=== PATIENT | female | born 1965 | race Caucasian/White ===

== ENCOUNTER 2020-02-26 12:18 | Outpatient (REF) | payer OTHER, SELFPAY ==
[2020-02-26 13:12] LABS: Hematocrit 37.4 % (37-47); Hemoglobin 12.4 g/dl (12.0-16.0); Mean Corpuscular HGB Conc 33.2 g/dl (31.0-35.0); Mean Corpuscular Hemoglobin 28.2 pg (27.0-33.0); Mean Corpuscular Volume 85.2 fL (80-98); Mean Platelet Volume 11.7 fL (9.4-12.3); Platelet Count 218 X10*3/uL (160-400); Red Blood Count 4.39 X10*6/uL (4.20-5.50); Red Cell Distribution Width 12.9 % (11.0-16.0); White Blood Count 4.6 X10*3/uL (4.8-10.8)
[2020-02-26 13:41] LABS: Alanine Aminotransferase 31 U/L (0-31); Albumin Level 4.5 g/dL (3.5-5.0); Alkaline Phosphatase 51 U/L (39-117); Anion Gap 15 (12-20); Aspartate Amino Transferase 25 U/L (5-31); Bilirubin Total 0.9 mg/dL (0.0-1.0); Blood Urea Nitrogen 17 mg/dL (9-16); Calcium 9.2 mg/dL (8.4-10.2); Carbon Dioxide 27 mmol/L (22-29); Chloride 104 mmol/L (96-108); Cholesterol 204 mg/dL; Estimated Glomerular Filt Rate > 60; Glucose Fasting 121 mg/dL (60-99); HDL Cholesterol 36 mg/dL; LDL Cholesterol Calculated 126 mg/dl; Potassium 3.9 mmol/l (3.3-5.1); Sodium 142 mmol/L (135-145); Total Protein 7.1 g/dL (6.5-8.0); Triglycerides 213 mg/dL
[2020-02-26 14:03] LABS: TSH reflex Free T4 0.77 mIU/mL (0.32-4.0)
[2020-02-26 14:41] LABS: Glucose Urine UA NEG (NEG); Leukocyte Esterase Urine 1+ (NEG); Nitrite Urine NEG (NEG); PH 5.5 (5.0-8.0); Specific Gravity - Urine >= 1.030 (1.005-1.025); Urine Blood 2+ (NEG); Urine Ketones NEG (NEG); Urine Protein NEG (NEG-TRACE)
[2020-02-26 14:42] LABS: Appearance Urine HAZY; Color Urine YELLOW
[2020-02-26 14:47] LABS: Bacteria Urine TRACE /LPF; Squamous Epithelial Cell Urine 3+ /LPF
[2020-02-26 14:48] LABS: Mucus Urine TRACE /LPF
== END 2020-02-26 12:19 | disposition home or self-care (01) ==
LOC: HO.LAB 12:18
PROVIDERS: PCP Internal Medicine; Visit Provider Internal Medicine
DX: Z00.00 Encounter for general adult medical examination without abnormal findings (principal)
CPT/HCPCS: 36415; 80053; 80061; 81001; 84443; 85027

== ENCOUNTER 2020-03-30 09:21 | Outpatient (REF) | payer OTHER, SELFPAY ==
[2020-03-30 09:52] LABS: Estimated Average Glucose 134 mg/dL; Hemoglobin A1c % 6.3 %
[2020-03-30 09:56] LABS: Glucose Urine UA NEG (NEG); Leukocyte Esterase Urine 2+ (NEG); Nitrite Urine NEG (NEG); Specific Gravity - Urine 1.025 (1.005-1.025); Urine Blood NEG (NEG); Urine Ketones NEG (NEG); Urine Protein NEG (NEG-TRACE)
[2020-03-30 09:58] LABS: Appearance Urine HAZY; Color Urine YELLOW
[2020-03-30 10:03] LABS: Bacteria Urine TRACE /LPF; RBC Urine 0 /HPF (0); Renal Epithelial Cells Urine 1+ /LPF; Squamous Epithelial Cell Urine 1+ /LPF
[2020-03-30 10:22] LABS: Anion Gap 13 (12-20); Blood Urea Nitrogen 16 mg/dL (9-16); Calcium 8.9 mg/dL (8.4-10.2); Carbon Dioxide 27 mmol/L (22-29); Chloride 106 mmol/L (96-108); Estimated Glomerular Filt Rate > 60; Glucose Random 164 mg/dL (60-115); Sodium 142 mmol/L (135-145)
== END 2020-03-30 09:22 | disposition home or self-care (01) ==
LOC: HO.LAB 09:21
PROVIDERS: PCP Internal Medicine; Visit Provider Internal Medicine
DX: Z00.00 Encounter for general adult medical examination without abnormal findings (principal); R73.9 Hyperglycemia, unspecified
CPT/HCPCS: 36415; 80048; 81001; 83036

== ENCOUNTER 2020-09-17 14:27 | Outpatient (REF) | payer OTHER, SELFPAY ==
--- NOTE | ~2020-09-17 | XR_ITS ---
EXAMINATION: XR CHEST CLINICAL INFORMATION: Cough. COMPARISON: Chest 01/28/2019 TECHNIQUE: 2 views of the chest were obtained. FINDINGS: The lungs are well-expanded and clear of acute process. The heart size and pulmonary vascularity is normal. There is moderate spondylosis dorsal spine. No lytic process. XR/XR chest 2V IMPRESSION: Unremarkable chest exam.
== END 2020-09-17 14:28 | disposition home or self-care (01) ==
LOC: HO.HMGCX 14:27
PROVIDERS: PCP Internal Medicine; Visit Provider Internal Medicine
DX: R05 Cough (principal)
CPT/HCPCS: 71046

== ENCOUNTER 2021-05-26 08:17 | Outpatient (REF) | payer OTHER, SELFPAY ==
[2021-05-26 12:07] LABS: Appearance Urine CLEAR; Color Urine STRAW; Glucose Urine UA NEG (NEG); Leukocyte Esterase Urine 3+ (NEG); Nitrite Urine NEG (NEG); Urine Blood NEG (NEG); Urine Ketones NEG (NEG); Urine Protein NEG (NEG-TRACE)
[2021-05-26 12:10] LABS: Hematocrit 40.2 % (37.0-47.0); Hemoglobin 13.2 g/dl (12.0-16.0); Mean Corpuscular HGB Conc 32.8 g/dl (31.0-35.0); Mean Corpuscular Hemoglobin 28.1 pg (27.0-33.0); Mean Corpuscular Volume 85.5 fL (80.0-98.0); Platelet Count 226 X10*3/uL (160-400); Red Cell Distribution Width 13.2 % (11.0-16.0); White Blood Count 5.3 X10*3/uL (4.8-10.8)
[2021-05-26 12:50] LABS: TSH reflex Free T4 1.99 uIU/mL (0.32-4.0); Vitamin D 25-OH Total 13.9 ng/mL (>30)
[2021-05-26 12:56] LABS: Estimated Average Glucose 131 mg/dL; Hemoglobin A1c % 6.2 %
[2021-05-26 12:57] LABS: Alanine Aminotransferase 23 U/L (0-31); Albumin Level 4.6 g/dL (3.5-5.0); Alkaline Phosphatase 56 U/L (39-117); Anion Gap 14 (12-20); Aspartate Amino Transferase 19 U/L (5-31); Bilirubin Total 0.6 mg/dL (0.0-1.0); Blood Urea Nitrogen 16 mg/dL (9-16); Calcium 9.9 mg/dL (8.4-10.2); Carbon Dioxide 28 mmol/L (22-29); Chloride 105 mmol/L (96-108); Cholesterol 266 mg/dL; Estimated Glomerular Filt Rate > 60; Glucose Fasting 141 mg/dL (60-99); HDL Cholesterol 43 mg/dL; LDL Cholesterol Calculated 195 mg/dl; Potassium 4.5 mmol/L (3.3-5.1); Sodium 142 mmol/L (135-145); Total Protein 7.5 g/dL (6.5-8.0); Triglycerides 144 mg/dL
[2021-05-26 13:06] LABS: RBC Urine 0-2 /HPF (0); Renal Epithelial Cells Urine 3+ /LPF; Squamous Epithelial Cell Urine 1+ /LPF
== END 2021-05-26 08:18 | disposition home or self-care (01) ==
LOC: HO.HMGCLDS 08:17
PROVIDERS: Visit Provider Internal Medicine
DX: Z00.00 Encounter for general adult medical examination without abnormal findings (principal); R73.9 Hyperglycemia, unspecified; K63.5 Polyp of colon
CPT/HCPCS: 36415; 80053; 80061; 81001; 82306; 83036; 84443; 85027

== ENCOUNTER → 2021-07-25 12:04 | Outpatient (BNVA) | payer OTHER, SELFPAY | PROVIDERS: PCP Internal Medicine; Visit Provider Internal Medicine Gastroenterology | DX: Z13.89 Encounter for screening for other disorder (principal) ==

== ENCOUNTER → 2021-08-20 10:57 | Outpatient (BNVA) | payer OTHER, SELFPAY | PROVIDERS: PCP Internal Medicine; Visit Provider Physician Assistant | DX: S76.311A Strain of muscle, fascia and tendon of the posterior muscle group at thigh level, right thigh, initial encounter (principal); X58.XXXA Exposure to other specified factors, initial encounter | CPT/HCPCS: 99204 ==

== ENCOUNTER → 2021-08-27 10:46 | Outpatient (BNVA) | payer OTHER, SELFPAY | PROVIDERS: PCP Internal Medicine; Visit Provider Physician Assistant | DX: S76.311A Strain of muscle, fascia and tendon of the posterior muscle group at thigh level, right thigh, initial encounter (principal); X58.XXXA Exposure to other specified factors, initial encounter | CPT/HCPCS: 99213 ==

== ENCOUNTER 2021-12-22 11:59 | Outpatient (REF) | payer OTHER, SELFPAY ==
[2021-12-22 14:17] LABS: Cholesterol 222 mg/dL; HDL Cholesterol 27 mg/dL; LDL Cholesterol Calculated 159 mg/dl; Triglycerides 183 mg/dL
== END 2021-12-22 12:00 | disposition home or self-care (01) ==
LOC: HO.HMGCLDS 11:59
PROVIDERS: PCP Internal Medicine; Visit Provider Internal Medicine
DX: E55.9 Vitamin D deficiency, unspecified (principal); E78.5 Hyperlipidemia, unspecified
CPT/HCPCS: 36415; 80061; 82306

== ENCOUNTER 2022-03-26 11:54 | Outpatient (REF) | payer OTHER, SELFPAY ==
--- NOTE | ~2022-03-26 | XR_ITS ---
EXAMINATION: XR LUMBAR SPINE. XR HIP, RIGHT. CLINICAL INFORMATION: Right leg pain COMPARISON: CT 10/11/2018 TECHNIQUE: 3 views of the lumbar spine. AP and frog-lateral views of the right hip. FINDINGS: Lumbar spine: Normal alignment and lumbar lordosis with mild multilevel degenerative disc disease. Moderate to severe facet arthrosis at L4-L5 and L5-S1. No fracture. Prominent atherosclerotic calcifications of the abdominal aorta. Right hip: No acute fracture or malalignment. Moderate osteoarthritis with prominent osteophytes along the acetabular rim. No acute osseous abnormality. XR/XR lumbar spine 2-3V IMPRESSION: LUMBAR SPINE: Mild multilevel degenerative disc disease with moderate to severe facet arthrosis at L4-L5 and L5-S1. RIGHT HIP: Moderate osteoarthritis.
--- NOTE | ~2022-03-26 | XR_ITS ---
EXAMINATION: XR LUMBAR SPINE. XR HIP, RIGHT. CLINICAL INFORMATION: Right leg pain COMPARISON: CT 10/11/2018 TECHNIQUE: 3 views of the lumbar spine. AP and frog-lateral views of the right hip. FINDINGS: Lumbar spine: Normal alignment and lumbar lordosis with mild multilevel degenerative disc disease. Moderate to severe facet arthrosis at L4-L5 and L5-S1. No fracture. Prominent atherosclerotic calcifications of the abdominal aorta. Right hip: No acute fracture or malalignment. Moderate osteoarthritis with prominent osteophytes along the acetabular rim. No acute osseous abnormality. XR/XR hip RT min 2V IMPRESSION: LUMBAR SPINE: Mild multilevel degenerative disc disease with moderate to severe facet arthrosis at L4-L5 and L5-S1. RIGHT HIP: Moderate osteoarthritis.
== END 2022-03-26 11:55 | disposition home or self-care (01) ==
LOC: HO.HMGCX 11:54
PROVIDERS: PCP Internal Medicine; Visit Provider Internal Medicine
DX: M54.16 Radiculopathy, lumbar region (principal); M25.551 Pain in right hip; M79.604 Pain in right leg; R10.31 Right lower quadrant pain
CPT/HCPCS: 72100; 73502

== ENCOUNTER 2022-05-27 07:53 | Day surgery (SDC) | payer OTHER, SELFPAY ==
[2022-05-21 11:03] VITALS: BMI 35.6
--- NOTE | 2022-05-27 07:53 | P.HPSUR_ITS ---
Pre-Procedural Eval Section A Date of Service: 05/27/22 Section B Chief Complaint: Personal history of colonic polyps Relevant Family History (Specify if Yes): No Relevant Social History: None Present Medications: see Short Stay Collaborative assessment Medical History: Significant History (Abnormal colonoscopy Annual physical exam Cough Edema GERD (gastroesophageal reflux disease) Hx of subarachnoid hemorrhage Hyperglycemia Hyperlipidemia Hypertension Mammogram normal Normal Pap smear Polyp of colon Vitamin D deficiency) History of Previous Operations: Relevant previous surgery/procedure and date(s) (History of section Hx of cholecystectomy) Allergies: Allergies Allergy/AdvReac Type Severity Reaction Status Date / Time No Known Allergies Allergy Unverified 03/26/22 11:43 [No Known Allergies*] Review of Systems Sugical H&P ROS: Negative: Constitution, Cardiovascular, Respiratory, Neurological, Psychiatric, Hem-Onc, Allergic/Immunologic, Gastrointestinal, Genitourinary, Musculoskeletal, Integumentary, Endocrine and Eyes/Ears/Nose /Throat Exam Surgical H&P Exam: Normal: HEENT, Normal: Heart, Normal: Lungs, Normal: Extremities, Normal: Abdomen, Normal: Skin and Normal: Neurological Plan Diagnosis/Plan: Unchanged I have reviewed the history and physical and performed a pertinent physical examination on my patient. No changes have occurred unless specified. Time Spent With Patient Time: Total time managing care of this patient today ____ minutes.
[2022-05-27 08:50] VITALS: BP 164/100; PULSE 76; RESP 18; TEMP 36.7; O2SAT 98; BMI 35.4
--- NOTE | 2022-05-27 08:57 | P.CONAN_ITS ---
[facility] Active Problems Active Problems: All Active Problems (Updated 05/21/22 @ 11:03 by Theodora Murillo RN) Urinary tract bacterial infections (Acute) Upper respiratory tract infection (Acute) Pain in right leg (Acute) Lumbar radiculitis (Acute) Right groin pain (Acute) Pain in right hip (Acute) Vitamin D deficiency (Acute) Hyperlipidemia (Acute) Polyp of colon (Acute) Cough (Acute) Edema (Acute) Hyperglycemia (Acute) Abnormal colonoscopy (Acute) Annual physical exam (Acute) Normal Pap smear (Acute) Mammogram normal (Acute) Past Medical History Medical History (Updated 05/21/22 @ 11:03 by Theodora Murillo RN) Abnormal colonoscopy Annual physical exam Cough Edema GERD (gastroesophageal reflux disease) Hx of subarachnoid hemorrhage Hyperglycemia Hyperlipidemia Hypertension Mammogram normal Normal Pap smear Polyp of colon Vitamin D deficiency Family History Family History Father HTN (hypertension) CVD (cardiovascular disease) AAA (abdominal aortic aneurysm) Unknown family medical history Mother Unknown family medical history 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 Brother No problems noted. Sister No problems noted. Son No problems noted. Daughter No problems noted. 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 If so, by whom?: No Are you DNR?: No Advance Directives: No Advance Directives Information Provided: Yes (as above noted-will bring copies DOS) Advance Directives on File: No Recently lost weight without trying: No Eating poorly because of decreased appetite: No Nutrition Risks: No Nutritional Risk Patient : No FDLMP: N/A Poor oral hygiene: No Current occupational status: employed Cognitive needs: No Hearing needs: No Vision needs: No Meds Allergies Allergy/AdvReac Type Severity Reaction Status Date / Time No Known Allergies Allergy Unverified 03/26/22 11:43 [No Known Allergies*] Home Medications Medication Instructions Recorded Confirmed Last Taken Type atorvastatin 10 mg tablet 10 mg PO QAM 05/21/22 05/21/22 Unknown History furosemide 20 mg tablet 20 mg PO QAM 05/21/22 05/21/22 Unknown History omeprazole 20 mg capsule,delayed 20 mg PO QAM 05/21/22 05/21/22 Unknown History release propranolol 20 mg tablet 20 mg PO QAM 05/21/22 05/21/22 Unknown History Exam Exam Date and Time: May 27, 2022 0857 Height,Weight and Vital Signs: Height 5 ft 3 in Weight 90.718 kg Last Vital Signs Temp 98.0 F 05/27/22 08:50 Pulse 76 05/27/22 08:50 Resp 18 05/27/22 08:50 BP 164/100 H 05/27/22 08:50 Pulse Ox 98 05/27/22 08:50 O2 Del Method Room Air 05/27/22 08:50 Airway Mallampati Class: II TM Dist: >3cm Neck ROM: Full Heart: rrr Lungs: cta Assessment and Plan Assessment Anesthesia Assessment: Anesthesia Plan Discussed and Chart Reviewed Final Anesthetic Review Family History of Problems with Anesthesia: No History of Problems with Anesthesia: No NPO: Yes ASA Class: II Final Preanesthetic Review: No Changes in Pt Med Stat, Meds/Allgs Chart Reviewed and Consent Obtained/Reviewed Patient Risk: Intermediate Procedure Risk: Intermediate Anesthetic Plan Anesthetic Plan: MAC: Disposition: Standard PACU
[2022-05-27] MEDS: Lactated Ringers 1,000 ML 50 ML IVCONT (09:17)
--- NOTE | 2022-05-27 09:25 | W.PM.OPN ---
Operative Note Operative Note Date of Service: 05/27/22 Narrative: Operative Information Procedure Description: Colonoscopy Indication: hx of colon polyps Anesthesia: MAC COLONOSCOPY Instrument: Olympus variable stiffness pediatric scope 190L Colonoscopy Monitoring: Vital signs and clinical assessment, continuous EKG monitoring, Pulse oximetry, Carbon Dioxide monitoring and blood pressure monitoring were done throughout the procedure. Colon withdrawal time was 18 minutes. Procedure: The patient was placed in the left lateral decubitis position and pre-procedure medications were administered. After a digital rectal examination of the ano-rectum, the video colonoscope was inserted into the rectum and advanced through the colon to the cecum/TI. The colonoscope was slowly withdrawn in a retrograde panoramic fashion and the colon mucosa was carefully examined including a retroflexed view of the rectum. Findings and interventions are described below. Procedure Difficulty: easy Findings: Terminal Ileum-normal, adjacent to the ileocecal opening was a bulbous swelling, it was difficult to say from gross appearance whether this was a partially prolapsed TI or a polyp so biopsies were taken Cecum:normal Ascending Colon: 7-8 mm sessile polyp removed with cold snare Transverse Colon -normal Descending Colon: 5-6 mm sessile polyp removed with cold forceps Sigmoid Colon: moderate severe diverticulosis, 4-6 mm sessile polyp removed with cold forceps Rectum: Retroflexion with medium sized internal hemorrhoids, grade I Anorectum - normal Colon preparation: [place] Bowel Preparation Scale Right colon; 2 Transverse colon: 2 Left colon; 2 (0 = Unprepared colon segment with mucosa not seen due to solid stool that cannot be cleared. 1 = Portion of mucosa of the colon segment seen, but other areas of the colon segment not well seen due to staining, residual stool and/or opaque liquid. 2 = Minor amount of residual staining, small fragments of stool and/or opaque liquid, but mucosa of colon segment seen well. 3 = Entire mucosa of colon segment seen well with no residual staining, small fragments of stool or opaque liquid) Impression and Post Procedure Diagnosis: polyps internal hemorrhoids diverticular disease Plan: High fiber diet leaflet Avoid straining at stool, epsom salts and sitz bath, anusol supps or cream Repeat Colonoscopy in 5 years if area adjacent to the IC is indeed prolapsed TI, otherwise if adenomatous then will bring back in 4-6 weeks and remove with hybrid APC or earlier if clinically indicated Above findings were reviewed with the patient and relevant handouts were provided if indicated.
[2022-05-27 09:58] VITALS: BP 126/77; PULSE 72; RESP 16; TEMP 36.7; O2SAT 95
[2022-05-27 10:21] VITALS: BP 170/87; PULSE 74; RESP 18; TEMP 36.7; O2SAT 97
== END 2022-05-27 10:44 | disposition home or self-care (01) ==
PROVIDERS: PCP Internal Medicine; Visit Provider Internal Medicine Gastroenterology
PROC: 0DJD8ZZ Inspection of Lower Intestinal Tract, Via Natural or Artificial Opening Endoscopic (ICD-10-PCS; CPT 45378; principal; 2022-05-27 09:10)
DX: Z12.11 Encounter for screening for malignant neoplasm of colon (principal); Z86.010 Personal history of colon polyps; K63.5 Polyp of colon; K57.30 Diverticulosis of large intestine without perforation or abscess without bleeding; K64.0 First degree hemorrhoids; K21.9 Gastro-esophageal reflux disease without esophagitis; I10 Essential (primary) hypertension; R73.9 Hyperglycemia, unspecified; E78.5 Hyperlipidemia, unspecified; Z79.899 Other long term (current) drug therapy; Z90.49 Acquired absence of other specified parts of digestive tract
CPT/HCPCS: 45385; 45380; 88305

== ENCOUNTER 2022-08-03 14:00 | Outpatient (RCR) | payer OTHER, SELFPAY ==
--- NOTE | 2022-06-30 12:36 | MHC.PT.EP ---
[facility] [place] Office [place] Office [place] Office [address] Deanna Ram [address] [phone] F: [phone] F: [phone] F: [phone] F: [phone] Physical Therapy Plan of Care Date of Evaluation: Date of Surgery: Diagnosis: This is a 56 yo female presenting to skilled PT with a script for pain in R hip. Assessment: This is a 56 yo female presenting to skilled PT with a script for pain in R hip. Patient complains of persistent right groin and right lower back pain ongoing since the end of February (pain can radiate into the ankle at times as well). Pain started after the patient was trying to help someone from falling (pain has not improved since incident). The pain is constant but can get worse when patient transfers, lifting leg and with walking. Unable to describe when pain is worse or better because it is constant. Pain is stabbing, twisting at the low back with achiness in the leg. She presented to the walkin clinic on 03/26 and was given meloxicam, prednisone and x-rays orders. She then followed up with her PCP on 06/17 and was educated on continuing ibuprofen and starting baclofen as well as PT. No referral to ortho surgeon as of yet. Assessment reveals pain that ranges from 2-9/10. Patient demos decreased lumbar and hip ROM, strength of hip/gluts, TTP at piri and ITB as well as QL, + SIJ tests as seen above in eval and decreased pain management. Based on functional limitations, impaired QOL and pain tolerance patient is a good candidate for skilled PT 2x/wk for 4wks. Frequency and Duration: The patient will be seen 2x/wk for 4wks Short Term Goals: I in hep Improve hip flexion tolerance with functional movements: getting in and out of car, bed etc without pain Demo equal SIJ alignment Prison Goals: Improve pain to no more than 2/10 at the worst Improve lefs by 10 points Normalize to functional expectations with ROM and strength Normalize gait without pain or compensation Treatment Plan: Modalities to reduce pain, spasms and effusion. Manual therapy to restore motion and function. Therapeutic exercise to improve strength and flexibility. Neuromuscular re-education for posture and balance. Therapeutic activities to return to functional activities of daily living. Electronically signed by: Vonda Ritter PT Please sign and return to therapist. Thank you for your referral.
--- NOTE | 2022-09-04 11:27 | MHC.PT.DC ---
[facility] [place] Office [place] Office [place] Office [address] Deanna Ram [address] [phone] F: [phone] F: [phone] F: [phone] F: [phone] Physical Therapy Discharge Report Diagnosis: This is a 56 yo female presenting to skilled PT with a script for pain in R hip. Date of Surgery: Date of Evaluation: 06/30/22 Date of Discharge: 09/04/22 Treatments to Date: 7 Cancellations to Date: 1 No Shows to Date: 0 Discharge Status: Independent with HEP Patient Elected to Stop Discharge Summary: Patient came for 7 visits of PT, she had some improvements and some set backs but at her last treatment session she was feeling well. She has an extensive HEP to continue on her own. Patient no showed to her last appointment and chart was DC'd after not being at our facility for 30 days. Electronically signed by: Vonda Ritter, PT Please sign and return to therapist. Thank you for your referral.
== END 2022-09-04 11:27 | disposition home or self-care (01) ==
LOC: HO.PTCHIC 14:00
PROVIDERS: PCP Internal Medicine; Visit Provider Internal Medicine
DX: M25.561 Pain in right knee (principal)
CPT/HCPCS: 97014; 97110; 97140; 97161; 97162

== ENCOUNTER 2022-09-04 12:29 | Outpatient (AMB) | payer OTHER, SELFPAY ==
[2022-09-04 12:31] VITALS: BP 126/80; PULSE 80; O2SAT 96; BMI 36.2
--- NOTE | 2022-09-04 12:31 | A.OFFPC_ITS ---
Vital Signs 09/04/22 12:31 Height 5 ft 3 in Weight 204 lb 4 oz BMI 36.2 BP 126/80 Blood Pressure Location Rt brachial Position Sitting Pulse 80 Pulse Source Pulse Oximeter Pulse Oximetry (%) 96 Oxygen Delivery Method Room Air Intake Visit Reasons: Trans care from Dr Emanuel Allergies No Known Allergies [No Known Allergies*] Allergy (Verified 09/04/22 12:31) Medication List - Last Reconciled 09/04/22 by Brandie Villalba MD atorvastatin 10 mg PO QAM baclofen 10 mg PO BEDTIME bisacodyl (Dulcolax (bisacodyl)) 20 mg (4 x 5 mg) PO ONCE 1 day furosemide 20 mg PO QAM omeprazole 20 mg PO QAM polyethylene glycol 3350 (Miralax) 238 grams PO ONCE propranolol 20 mg PO QAM Tobacco use date assessed: 09/04/22 Dental Screening Dental Screen Date: 09/04/22 Did you have a dental visit in the last 12 months?: Yes Did you have a dental problem in the last 6 months where you did not have access to dental care?: No Was dental information given to patient?: No HPI Trans care from Dr Emanuel HPI Details Patient is 57-year-old female came in today for her initial establish care visit Lipid disorder: Patient is on atorvastatin 10 mg she has not had labs done in a while I have placed order for labs to be done fasting She has severe osteoarthritis in her lumbar spine showed on x-ray done March of this year she was having severe back pain she is going through physical therapy and is feeling better. She is no longer taking baclofen Chronic GERD: Patient is on omeprazole 20 mg which is helping her. She is also on propranolol 20 mg patient is not sure why it was started but it was started 8 years ago has exercise induced hypertension medication and she is just taking 1 tablet in the morning. She will be stopping the medication to see if she still needs it or not she will be monitoring her blood pressure as well. I see that she also have a furosemide listed in her medication list. Patient says long time ago she had swelling of her ankles and she was started on Lasix by Dr. Jones 8 years ago and she has been taking it since. She will also stop this medication to monitor her symptoms if she start having swelling of her ankles she may restart taking it. Her OBGYN is at [facility] and she is up-to-date Colonoscopy was this year in May by Dr. Pemberton Mammogram is up-to-date Patient is trying to lose weight she has joined a program Follow-up 3 months [facility] Medical History Abnormal colonoscopy Annual physical exam Cough Edema GERD (gastroesophageal reflux disease) Hx of subarachnoid hemorrhage Hyperglycemia Hyperlipidemia Hypertension Mammogram normal Normal Pap smear Polyp of colon Vitamin D deficiency Surgical History H/O colonoscopy History of section History of esophagogastroduodenoscopy (EGD) Hx of cholecystectomy Family History Father HTN (hypertension) CVD (cardiovascular disease) AAA (abdominal aortic aneurysm) Unknown family medical history Mother Unknown family medical history 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 Brother No problems noted. Sister No problems noted. Son No problems noted. Daughter No problems noted. 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 How often do you have a drink containing alcohol?: Never 3. How often do you have six or more drinks on one occasion?: Never Total Score: 0 Score Reviewed/Action Taken: Yes TITI-7 AMB Questionnaire TITI-7 Date TITI - 7 assessed: 05/26/21 Source: Developed by Drs. Berto Acevedo, Maria Esther Li, Toni Degroot and colleagues, with an educational benigno from [employer]. Review of Systems Const Denies chills and Denies fever(s) ENT Denies epistaxis and Denies nasal discharge Card Denies chest pain Resp Denies chest congestion, Denies cough and Denies hemoptysis GI Denies diarrhea and Denies nausea Skin/Breast Denies rash Neuro Reports no additional complaints Psych Reports no additional complaints Endo Reports no additional complaints Physical exam (Primary Care) Vital Signs: Last Vital Signs Pulse 80 09/04/22 12:31 BP 126/80 09/04/22 12:31 Pulse Ox 96 09/04/22 12:31 Oxygen Delivery Method Room Air 09/04/22 12:31 BMI result Body Mass Index 36.2 Tobacco/Smoking Status: Tobacco use Status Tobacco use date assessed 09/04/22 09/04/22 12:33 Patient Tobacco Use Status Never used Tobacco 09/04/22 12:33 e-Cigarette/Vaping Use Never Used 09/04/22 12:33 Thrive Assessment: Date of Thrive Assessment Date Thrive assessed 05/26/21 09/04/22 12:33 Const General: cooperative, comfortable and no acute distress Orientation/consciousness: patient oriented x3 HENMT Head: Yes normocephalic Eyes General: appearance normal, both eyes and all related structures Neck Neck: Yes supple Resp Effort & Inspection: normal respiratory effort, no cough and no stridor Cardio Rhythm: regular rhythm Heart sounds: S1 normal heart sound present and S2 normal heart sound present Skin General skin exam: turgor normal Neuro General: patient oriented x3, tone normal and moves all extremities Extrem Right lower extremity: no edema Left lower extremity: no edema Assessment and Plan Assessment & Plan (1) Establishing care with new doctor, encounter for: Code(s): Z76.89 - Persons encountering health services in other specified circumstances (2) Hyperlipidemia: Code(s): E78.5 - Hyperlipidemia, unspecified (3) Vitamin D deficiency: Code(s): E55.9 - Vitamin D deficiency, unspecified (4) Hyperglycemia: Code(s): R73.9 - Hyperglycemia, unspecified (5) Osteoarthritis of lumbar spine: Code(s): M47.816 - Spondylosis without myelopathy or radiculopathy, lumbar region (6) Obesity due to excess calories: Code(s): E66.09 - Other obesity due to excess calories Plan Patient is 57-year-old female came in today for her initial establish care visit Lipid disorder: Patient is on atorvastatin 10 mg she has not had labs done in a while I have placed order for labs to be done fasting She has severe osteoarthritis in her lumbar spine showed on x-ray done March of this year she was having severe back pain she is going through physical therapy and is feeling better. She is no longer taking baclofen Chronic GERD: Patient is on omeprazole 20 mg which is helping her. She is also on propranolol 20 mg patient is not sure why it was started but it was started 8 years ago has exercise induced hypertension medication and she is just taking 1 tablet in the morning. She will be stopping the medication to see if she still needs it or not she will be monitoring her blood pressure as well. I see that she also have a furosemide listed in her medication list. Patient says long time ago she had swelling of her ankles and she was started on Lasix by Dr. Jones 8 years ago and she has been taking it since. She will also stop this medication to monitor her symptoms if she start having swelling of her ankles she may restart taking it. Her OBGYN is at [facility] and she is up-to-date Colonoscopy was this year in May by Dr. Pemberton Mammogram is up-to-date Patient is trying to lose weight she has joined a program Follow-up 3 months Orders: Orders Comprehensive [place]. Panel Fast Today E55.9 - Vitamin D deficiency, unspecified, E78.5 - Hyperlipidemia, unspecified, R73.9 - Hyperglycemia, unspecified, Z76.89 - Persons encountering health services in other specified circumstances Brandie Villalba MD Hemoglobin A1c Today E55.9 - Vitamin D deficiency, unspecified, E78.5 - Hyperlipidemia, unspecified, R73.9 - Hyperglycemia, unspecified, Z76.89 - Persons encountering health services in other specified circumstances Brandie Villalba MD Lipid Panel Today E55.9 - Vitamin D deficiency, unspecified, E78.5 - H yperlipidemia, unspecified, R73.9 - Hyperglycemia, unspecified, Z76.89 - Persons encountering health services in other specified circumstances Brandie Villalba MD TSH reflex Free T4 Today E55.9 - Vitamin D deficiency, unspecified, E78.5 - Hyperlipidemia, unspecified, R73.9 - Hyperglycemia, unspecified, Z76.89 - Persons encountering health services in other specified circumstances Brandie Villalba MD Complete Blood Count Auto Diff Today E55.9 - Vitamin D deficiency, unspecified, E78.5 - Hyperlipidemia, unspecified, R73.9 - Hyperglycemia, unspecified, Z76.89 - Persons encountering health services in other specified circumstances Brandie Villalba MD Medications: Discontinued propranolol schedule next PCP appt for more refills 20 mg PO DAILY 90 tabs 1RF Theodora Murillo RN omeprazole schedule next PCP appt for more refills 20 mg PO DAILY 90 caps 0RF K21.9 - Gastro-esophageal reflux disease without esophagitis Theodora Murillo RN furosemide Schedule next PCP appt for more refills 20 mg PO DAILY 90 tabs 1RF Theodora Murillo RN atorvastatin Schedule next PCP appt for more refills 10 mg PO DAILY 90 tabs 0RF Theodora Murillo RN Coding Level of Care Code New Pt Level 4 (32781) Diagnoses Establishing care with new doctor, encounter for Z76.89 Hyperlipidemia E78.5 Vitamin D deficiency E55.9 Hyperglycemia R73.9 Osteoarthritis of lumbar spine M47.816 Obesity due to excess calories E66.09
== END 2022-09-04 14:18 | disposition home or self-care (01) ==
PROVIDERS: PCP Internal Medicine; Visit Provider Internal Medicine
DX: E55.9 Vitamin D deficiency, unspecified (principal); E78.5 Hyperlipidemia, unspecified; Z68.36 Body mass index [BMI] 36.0-36.9, adult; E66.09 Other obesity due to excess calories; R73.9 Hyperglycemia, unspecified; M47.816 Spondylosis without myelopathy or radiculopathy, lumbar region
CPT/HCPCS: 99214

== ENCOUNTER 2022-10-08 08:13 | Outpatient (REF) | payer OTHER, SELFPAY ==
[2022-10-08 11:17] LABS: MANUAL DIFF FLAG NO
[2022-10-08 11:36] LABS: Basophils Percent Auto 0.5 % (0-2); Eosinophils Absolute Auto 0.1 X10*3/uL (0.0-0.4); Eosinophils Percent Auto 1.9 % (0-4); Hematocrit 39.7 % (37.0-47.0); Hemoglobin 13.1 g/dl (12.0-16.0); Imm Gran Abs Auto 0.01 X10*3/uL (0.00-0.03); Imm Gran Pct Auto 0.3 % (0.0-0.4); Lymphocytes Absolute Auto 1.3 X10*3/uL (1.2-4.9); Lymphocytes Percent Auto 35.3 % (20-40); Mean Corpuscular Hemoglobin 28.5 pg (27.0-33.0); Mean Corpuscular Volume 86.3 fL (80.0-98.0); Mean Platelet Volume 12.6 fL (9.4-12.3); Monocytes Absolute Auto 0.4 X10*3/uL (0.1-1.2); Monocytes Percent Auto 10.6 % (2-11); Neutrophils Absolute Auto 1.9 x10*3/uL (2.0-8.3); Neutrophils Percent Auto 51.4 % (45-73); Platelet Count 214 X10*3/uL (160-400); Red Cell Distribution Width 13.1 % (11.0-16.0); White Blood Count 3.7 X10*3/uL (4.8-10.8)
[2022-10-08 11:40] LABS: Estimated Average Glucose 157 mg/dL; Hemoglobin A1c % 7.1 %
[2022-10-08 12:10] LABS: Alanine Aminotransferase 29 U/L (0-31); Albumin Level 4.7 g/dL (3.5-5.0); Alkaline Phosphatase 58 U/L (39-117); Anion Gap 13 (12-20); Aspartate Amino Transferase 27 U/L (5-31); Bilirubin Total 0.6 mg/dL (0.0-1.0); Blood Urea Nitrogen 21 mg/dL (9-16); Calcium 10.1 mg/dL (8.4-10.2); Carbon Dioxide 26 mmol/L (22-29); Chloride 107 mmol/L (96-108); Cholesterol 159 mg/dL; Estimated Glomerular Filt Rate > 60; Glucose Fasting 114 mg/dL (60-99); HDL Cholesterol 40 mg/dL; LDL Cholesterol Calculated 89 mg/dl; Potassium 4.3 mmol/L (3.3-5.1); Sodium 142 mmol/L (135-145); TSH reflex Free T4 2.49 uIU/mL (0.32-4.0); Total Protein 7.7 g/dL (6.5-8.0); Triglycerides 153 mg/dL
== END 2022-10-08 08:14 | disposition home or self-care (01) ==
LOC: HO.HMGCLDS 08:13
PROVIDERS: PCP Internal Medicine; Visit Provider Internal Medicine
DX: E55.9 Vitamin D deficiency, unspecified (principal); E78.5 Hyperlipidemia, unspecified; R73.9 Hyperglycemia, unspecified; Z76.89 Persons encountering health services in other specified circumstances
CPT/HCPCS: 36415; 80053; 80061; 83036; 84443; 85025

== ENCOUNTER 2022-12-08 12:22 | Outpatient (AMB) | payer OTHER, SELFPAY ==
[2022-12-08 12:31] VITALS: BP 132/80; PULSE 73; O2SAT 96; BMI 33.0
--- NOTE | 2022-12-08 12:31 | A.OFFPC_ITS ---
Vital Signs 12/08/22 12:31 Height 5 ft 3 in Weight 186 lb 2 oz BMI 33.0 BP 132/80 Blood Pressure Location Lt brachial Position Sitting Pulse 73 Pulse Source Pulse Oximeter Pulse Oximetry (%) 96 Oxygen Delivery Method Room Air Intake Visit Reasons: 3 Month follow up Allergies No Known Allergies [No Known Allergies*] Allergy (Verified 12/08/22 12:31) Medication List - Last Reconciled 12/08/22 by Brandie Villalba MD atorvastatin 10 mg PO QAM bisacodyl (Dulcolax (bisacodyl)) 20 mg (4 x 5 mg) PO ONCE 1 day furosemide 20 mg PO QAM metformin 1,000 mg PO DAILY omeprazole 20 mg PO QAM polyethylene glycol 3350 (Miralax) 238 grams PO ONCE propranolol 20 mg PO QAM Tobacco use date assessed: 12/08/22 Dental Screening Dental Screen Date: 12/08/22 Did you have a dental visit in the last 12 months?: Yes Did you have a dental problem in the last 6 months where you did not have access to dental care?: No Was dental information given to patient?: Patient has dentist HPI 3 Month follow up HPI Details Patient is 57-year-old female came in today for her follow-up appointment She was diagnosed with diabetes and was started on metformin. 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 She is also on propranolol 20 mg as headache prophylaxis Patient is on Lasix for chronic ankle swelling, I have told her to hold the medication over the BT and see if she still needs it or if she needs it as needed Her OBGYN is at [facility] and she is up-to-date Colonoscopy was this year in May by Dr. Pemberton Mammogram is up-to-date Patient is trying to lose weight she has joined a program Follow-up 3 months PENDING SALE TO [facility] Medical History Vitamin D deficiency Polyp of colon Cough Edema Hyperglycemia Abnormal colonoscopy Annual physical exam Normal Pap smear Mammogram normal Hx of subarachnoid hemorrhage GERD (gastroesophageal reflux disease) Hyperlipidemia Hypertension Surgical History History of esophagogastroduodenoscopy (EGD) H/O colonoscopy History of section Hx of cholecystectomy Family History Father HTN (hypertension) CVD (cardiovascular disease) AAA (abdominal aortic aneurysm) Unknown family medical history Mother Unknown family medical history 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 Brother No problems noted. Sister No problems noted. Son No problems noted. Daughter No problems noted. 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 Housing: House Are you a primary director career to a significant other at home: No Do you presently have visiting nurse or other home services: No Alcohol intake: never Patient Tobacco Use Status: Never used Tobacco e-Cigarette/Vaping Use: Never Used Second Hand Smoke Exposure: No Current occupational status: employed Cognitive needs: No Hearing needs: No Vision needs: No Questionnaire PHQ-9 Over the last 2 weeks, how often have you been bothered by any of the following problems? 1. Little interest or pleasure in doing things: not at all 2. Feeling down, depressed, or hopeless: not at all 3. Trouble falling or staying asleep, or sleeping too much: nearly every day 4. Feeling tired or having little energy: not at all 5. Poor appetite or overeating: not at all 6. Feeling bad about yourself - or that you are a failure or have let yourself or your family down: not at all 7. Trouble concentrating on things, such as reading the newspaper or watching television: not at all 8. Moving or speaking so slowly that other people could have noticed. Or the opposite - being so fidgety or restless that you have been moving around a lot more than usual: not at all 9. Thoughts that you would be better off or of hurting yourself in some way: not at all Total score: 3 Depression Screening Interpretation: Negative Depression Screening Done: Yes 72369 - PHQ-9 Billing: Yes Source: Developed by Drs. Berto Acevedo, Maria Esther Li, Toni Degroot and colleagues, with an educational benigno from [employer]. Thrive Questionnaire Date Thrive assessed: 05/26/21 AUDIT C Alcohol Use Questionnaire (AUDIT-C) 1. How often do you have a drink containing alcohol?: Never 3. How often do you have six or more drinks on one occasion?: Never Total Score: 0 Score Reviewed/Action Taken: Yes TITI-7 AMB Questionnaire TITI-7 Date TITI - 7 assessed: 05/26/21 Source: Developed by Drs. Berto Acevedo, Maria Esther Li, Toni Degroot and colleagues, with an educational benigno from [employer]. Review of Systems Const Denies chills and Denies fever(s) ENT Denies epistaxis and Denies nasal discharge Card Denies chest pain Resp Denies chest congestion, Denies cough and Denies hemoptysis GI Denies diarrhea and Denies nausea Skin/Breast Denies rash Neuro Reports no additional complaints Psych Reports no additional complaints Endo Reports no additional complaints Physical exam (Primary Care) Vital Signs: Last Vital Signs Pulse 73 12/08/22 12:31 BP 132/80 12/08/22 12:31 Pulse Ox 96 12/08/22 12:31 Oxygen Delivery Method Room Air 12/08/22 12:31 BMI result Body Mass Index 33.0 Tobacco/Smoking Status: Tobacco use Status Tobacco use date assessed 12/08/22 12/08/22 12:34 Patient Tobacco Use Status Never used Tobacco 12/08/22 12:34 e-Cigarette/Vaping Use Never Used 12/08/22 12:34 Depression Screening Interpretation: Negative Thrive Assessment: Date of Thrive Assessment Date Thrive assessed 05/26/21 12/08/22 12:34 Const General: cooperative, comfortable and no acute distress Orientation/consciousness: patient oriented x3 HENVA Head: Yes normocephalic Eyes General: appearance normal, both eyes and all related structures Neck Neck: Yes supple Resp Effort & Inspection: normal respiratory effort, no cough and no stridor Cardio Rhythm: regular rhythm Heart sounds: S1 normal heart sound present and S2 normal heart sound present Skin General skin exam: turgor normal Neuro General: patient oriented x3, tone normal and moves all extremities Extrem Right lower extremity: no edema Left lower extremity: no edema Assessment and Plan Assessment & Plan (1) Diabetes type 2, controlled: Code(s): E11.9 - Type 2 diabetes mellitus without complications Qualifiers: 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 complication status: without complication 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 or intermediate school principal insulin use: without middle or intermediate school principal use Qualified Code(s): E11.9 - Type 2 diabetes mellitus without complications (2) Obesity due to excess calories: Code(s): E66.09 - Other obesity due to excess calories Qualifiers: Body mass index: BMI 33.0-33.9 Obesity classification: adult class 1 (BMI 30 - 34.9) Serious obesity comorbidity presence: with serious comorbidity Qualified Code(s): E66.09 - Other obesity due to excess calories; Z68.33 - Body mass index [BMI] 33.0-33.9, adult (3) Hyperlipidemia: Code(s): E78.5 - Hyperlipidemia, unspecified Qualifiers: Hyperlipidemia type: mixed hyperlipidemia Qualified Code(s): E78.2 - Mixed hyperlipidemia (4) Vitamin D deficiency: Code(s): E55.9 - Vitamin D deficiency, unspecified (5) Osteoarthritis of lumbar spine: Code(s): M47.816 - Spondylosis without myelopathy or radiculopathy, lumbar region Qualifiers: Spinal osteoarthritis complication: without myelopathy or radiculopathy Qualified Code(s): M47.816 - Spondylosis without myelopathy or radiculopathy, lumbar region Plan Patient is 57-year-old female came in today for her follow-up appointment She was diagnosed with diabetes and was started on metformin. 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 She is also on propranolol 20 mg as headache prophylaxis Patient is on Lasix for chronic ankle swelling, I have told her to hold the medication over the BT and see if she still needs it or if she needs it as needed Her OBGYN is at [facility] and she is up-to-date Colonoscopy was this year in [place] by Dr. Pemberton Mammogram is up-to-date Patient is trying to lose weight she has joined a program Follow-up 3 months Orders: Orders Complete Blood Count Auto Diff Today E11.9 - Type 2 diabetes mellitus without complications, E66.09 - Other obesity due to excess calories, E78.5 - Hyperlipidemia, unspecified Lipid Panel Today E11.9 - Type 2 diabetes mellitus without complications, E66.09 - Other obesity due to excess calories, E78.5 - Hyperlipidemia, unspecified Microalbumin, Random (w Creat) Today E11.9 - Type 2 diabetes mellitus without complications, E66.09 - Other obesity due to excess calories, E78.5 - Hyperlipidemia, unspecified Hemoglobin A1c Today E11.9 - Type 2 diabetes mellitus without complications, E66.09 - Other obesity due to excess calories, E78.5 - Hyperlipidemia, unspecified Comprehensive [place]. Panel Fast Today E11.9 - Type 2 diabetes mellitus without complications, E66.09 - Other obesity due to excess calories, E78.5 - Hyperlipidemia, unspecified Medications: New amoxicillin 875 mg PO BID 7 days 14 tabs 0RF Coding Level of Care Code Est Pt Level 4 (35633) Diagnoses Controlled type 2 diabetes mellitus without complication, without long-term current use of insulin E11.9 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 complication status: without complication 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 or intermediate school principal insulin use: without middle or intermediate school principal use Class 1 obesity due to excess calories with serious comorbidity and body mass index (BMI) of 33.0 to 33.9 in adult E66.09; Z68.33 Body mass index: BMI 33.0-33.9 Obesity classification: adult class 1 (BMI 30 - 34.9) Serious obesity comorbidity presence: with serious comorbidity Mixed hyperlipidemia E78.2 Hyperlipidemia type: mixed hyperlipidemia Vitamin D deficiency E55.9 Spondylosis of lumbar region without myelopathy or radiculopathy M47.816 Spinal osteoarthritis complication: without myelopathy or radiculopathy
== END 2022-12-08 12:54 | disposition home or self-care (01) ==
PROVIDERS: PCP Internal Medicine; Visit Provider Internal Medicine
DX: E11.9 Type 2 diabetes mellitus without complications (principal); E66.09 Other obesity due to excess calories; Z68.33 Body mass index [BMI] 33.0-33.9, adult; E78.2 Mixed hyperlipidemia; E55.9 Vitamin D deficiency, unspecified; M47.816 Spondylosis without myelopathy or radiculopathy, lumbar region
CPT/HCPCS: 99214

== ENCOUNTER 2022-12-28 08:13 | Outpatient (AMB) | payer OTHER, SELFPAY ==
[2022-12-28 09:27] VITALS: BP 124/72; PULSE 86; TEMP 36.8; O2SAT 97; BMI 32.5
--- NOTE | 2022-12-28 09:27 | AM.OFFWIN_ITS ---
Intake Vital Signs 12/28/22 09:27 Height 5 ft 3 in Weight 83.178 kg BMI 32.5 BP 124/72 Blood Pressure Location Rt brachial Position Sitting Pulse 86 Pulse Source Pulse Oximeter Temp 98.3 F Temp Source Temporal Artery Scan Pulse Oximetry (%) 97 Oxygen Delivery Method Room Air Intake Visit Reasons: EST/ ongoing thumb swelling (lobby) Intake Note: pt is here for c/o ongoing thumb swelling Patient Tobacco Use Status: Never used Tobacco Allergies No Known Allergies [No Known Allergies*] Allergy (Verified 12/28/22 09:28) Do you need a note to return to daycare/school/sports/work: Yes HPI EST/ ongoing thumb swelling (lobby) HPI Details Patient presents with recurring swelling in her right thumb mostly emanating from the IPJ joint. She notes she was treated with Augmentin by her PCP 2 weeks ago and after 7 days on Augmentin the pain and swelling and resolved range of motion improved. And then once she completed Augmentin symptoms returned within 2-3 days. Skin is intact today but she does get regular manicures with cuticle trimming. She is nail Khmer on today but notes when it was removed there was no discoloration under the nail. She has no history of gout. Denies fever or drainage from area. Skin of the thumb is dry and pruritic. [facility] Medical History Vitamin D deficiency Polyp of colon Cough Edema Hyperglycemia Abnormal colonoscopy Annual physical exam Normal Pap smear Mammogram normal Hx of subarachnoid hemorrhage GERD (gastroesophageal reflux disease) Hyperlipidemia Hypertension Surgical History History of esophagogastroduodenoscopy (EGD) H/O colonoscopy History of section Hx of cholecystectomy Family History Father HTN (hypertension) CVD (cardiovascular disease) AAA (abdominal aortic aneurysm) Unknown family medical history Mother Unknown family medical history 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 Brother No problems noted. Sister No problems noted. Son No problems noted. Daughter No problems noted. 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: House Are you a primary hospice home care coordinator to a significant other at home: No Do you presently have visiting nurse or other home services: No Alcohol intake: never Patient Tobacco Use Status: Never used Tobacco e-Cigarette/Vaping Use: Never Used Second Hand Smoke Exposure: No Current occupational status: employed Cognitive needs: No Hearing needs: No Vision needs: No Review of Systems Const Reports as per HPI and Reports no additional complaints Musc Reports no additional complaints and Reports as per HPI Skin/Breast Denies lesions Neuro Reports no additional complaints and Reports as per HPI Physical Exam Vital Signs: Last Vital Signs Temp 98.3 F 12/28/22 09:27 Pulse 86 12/28/22 09:27 BP 124/72 12/28/22 09:27 Pulse Ox 97 12/28/22 09:27 Oxygen Delivery Method Room Air 12/28/22 09:27 BMI result Body Mass Index 32.5 Const General: cooperative, comfortable and no acute distress Orientation/consciousness: patient oriented x3 Resp Effort & Inspection: normal respiratory effort Auscultation: clear to auscultation bilaterally Cardio Rate: regular rate Rhythm: regular rhythm Heart sounds: S1 normal heart sound present and S2 normal heart sound present Neuro General: patient oriented x3 Extrem Right upper extremity: normal capillary refill, wrist Details: normal to inspection and Extremity exam: right hand Details: normal capillary refill, neurosensory exam normal, neurosensory exam abnormal, tenderness Location: of the thumb Location: at the IP joint and warmth Location: of the thumb (Generalize mostly IPJ) Location: at the nailbed (Normal without rubor paronychia ear drainage) and involving the fingernail (Opaque nail Khmer); no cyanosis Results Reviewed Results Reviewed: X-ray contemporaneously read by me there does appear to be some calcification in the IPJ joint line which may be consistent with gout or pseudogout. Assessment & Plan Assessment & Plan (1) Pain of right thumb: Code(s): M79.644 - Pain in right finger(s) Plan: Given patient had response to antibiotics will trial a course of doxycycline 100 mg b.i.d. times 10 days however her symptoms are more consistent with a gouty appearance will also give Indocin which will help with pain and swelling in either case. Return to clinic if symptoms worsen or do not improve. Orders: Orders XR finger RT min 2V Today M79.644 - Pain in right finger(s) Medications: New doxycycline hyclate 100 mg PO BID 10 days 20 caps 0RF indomethacin ER 75 mg PO BID 10 days 20 caps 0RF Coding Level of Care Code Est Pt Level 4 (61851) Diagnoses Pain of right thumb M79.644
== END 2022-12-28 10:12 | disposition home or self-care (01) ==
PROVIDERS: PCP Internal Medicine; Visit Provider Physician Assistant
DX: M79.644 Pain in right finger(s) (principal)
CPT/HCPCS: 99214

== ENCOUNTER 2022-12-28 09:46 | Outpatient (REF) | payer OTHER, SELFPAY ==
--- NOTE | ~2022-12-28 | XR_ITS ---
EXAMINATION: XR FINGER, RIGHT CLINICAL INFORMATION: Pain COMPARISON: None available. TECHNIQUE: Three views of the right thumb. FINDINGS: No fracture or dislocation of the right thumb. No significant degenerative changes. Mild localized soft tissue swelling over the first IP joint. No radiopaque foreign body. XR/XR finger RT min 2V IMPRESSION: Soft tissue swelling of the thumb without fracture.
== END 2022-12-28 09:47 | disposition home or self-care (01) ==
LOC: HO.HMGCX 09:46
PROVIDERS: PCP Internal Medicine; Visit Provider Physician Assistant
DX: M79.644 Pain in right finger(s) (principal)
CPT/HCPCS: 73140

== ENCOUNTER 2023-02-26 08:22 | Outpatient (REF) | payer OTHER, SELFPAY | END 2023-02-26 08:23 | disposition home or self-care (01) | LOC: HO.HMGCLDS 08:22 | PROVIDERS: PCP Internal Medicine; Visit Provider Internal Medicine | DX: E11.9 Type 2 diabetes mellitus without complications (principal); E66.09 Other obesity due to excess calories; E78.5 Hyperlipidemia, unspecified | CPT/HCPCS: 36415; 80053; 80061; 82043; 82570; 83036; 85025 ==

== ENCOUNTER 2023-03-24 08:36 | Outpatient (AMB) | payer OTHER, SELFPAY ==
[2023-03-24 08:39] VITALS: BP 140/82; PULSE 76; O2SAT 96; BMI 33.9
--- NOTE | 2023-03-24 08:39 | MHC.PC.OV ---
Vital Signs 03/24/23 08:39 Height 5 ft 3 in Weight 191 lb 6 oz BMI 33.9 BP 140/82 H Blood Pressure Location Rt brachial Position Sitting Pulse 76 Pulse Source Pulse Oximeter Pulse Oximetry (%) 96 Oxygen Delivery Method Room Air Intake Visit Reasons: 3 Month follow up Allergies No Known Allergies [No Known Allergies*] Allergy (Verified 12/28/22 09:28) Medication List - Last Reconciled 03/24/23 by Brandie Villalba MD atorvastatin 10 mg PO QAM bisacodyl (Dulcolax (bisacodyl)) 20 mg (4 x 5 mg) PO ONCE 1 day blood sugar diagnostic (FreeStyle Lite Strips) Use to check blood sugar twice daily: fasting and random blood-glucose meter (FreeStyle Lite Meter kit) Use to check blood sugar twice daily: fasting and random furosemide 20 mg PO QAM lancets (Accu-Chek Softclix Lancets) Use to check blood sugar twice daily: fasting and random metformin 1,000 mg PO DAILY omeprazole 20 mg PO QAM propranolol 20 mg PO QAM Tobacco use date assessed: 03/24/23 Dental Screening Dental Screen Date: 03/24/23 Did you have a dental visit in the last 12 months?: Yes Did you have a dental problem in the last 6 months where you did not have access to dental care?: No Was dental information given to patient?: Patient has dentist HPI 3 Month follow up HPI Details Patient is 57-year-old female came in today for her follow-up appointment Patient have a history of subarachnoid hemorrhage secondary to aneurysm. She has been fine for last few months 2 days ago patient was out with friends suddenly she had a severe headache which was 10 x 10 she tells me Her friend told her to go to emergency room but patient did not. Patient says that headache gradually improved and now it is 5 x 10 She had blurring of vision at that time as well, currently patient feels dizzy, no pain neck pain Patient says that she is scared that she has another bleed, and would like to have an imaging Explained to patient that she should have gone to emergency room. 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 She is also on propranolol 20 mg as headache prophylaxis Patient is on Lasix for chronic ankle swelling to be taken p.r.n. Patient is trying to lose weight she has joined a program Follow-up 3 months [facility] Medical History Vitamin D deficiency Polyp of colon Cough Edema Hyperglycemia Abnormal colonoscopy Annual physical exam Normal Pap smear Mammogram normal Hx of subarachnoid hemorrhage GERD (gastroesophageal reflux disease) Hyperlipidemia Hypertension Surgical History History of esophagogastroduodenoscopy (EGD) H/O colonoscopy History of section Hx of cholecystectomy Family History Father HTN (hypertension) CVD (cardiovascular disease) AAA (abdominal aortic aneurysm) Unknown family medical history Mother Unknown family medical history 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 Brother No problems noted. Sister No problems noted. Son No problems noted. Daughter No problems noted. 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 [employer] Housing: House Are you a primary day care home provider to a significant other at home: No Do you presently have visiting nurse or other home services: No Alcohol intake: never Patient Tobacco Use Status: Never used Tobacco e-Cigarette/Vaping Use: Never Used Second Hand Smoke Exposure: No Current occupational status: employed Cognitive needs: No Hearing needs: No Vision needs: No Questionnaire Thrive Questionnaire Date Thrive assessed: 05/26/21 TITI-7 AMB Questionnaire TITI-7 Date TITI - 7 assessed: 05/26/21 Source: Developed by Drs. Berto Acevedo, Maria Esther Li, Toni Degroot and colleagues, with an educational benigno from [employer]. Review of Systems Const Denies chills and Denies fever(s) ENT Denies epistaxis and Denies nasal discharge Card Denies chest pain Resp Denies chest congestion, Denies cough and Denies hemoptysis GI Denies diarrhea and Denies nausea Skin/Breast Denies rash Neuro Reports no additional complaints Psych Reports no additional complaints Endo Reports no additional complaints Physical exam (Primary Care) Vital Signs: Last Vital Signs Pulse 76 03/24/23 08:39 BP 140/82 H 03/24/23 08:39 Pulse Ox 96 03/24/23 08:39 Oxygen Delivery Method Room Air 03/24/23 08:39 BMI result Body Mass Index 33.9 Tobacco/Smoking Status: Tobacco use Status Tobacco use date assessed 03/24/23 03/24/23 08:42 Patient Tobacco Use Status Never used Tobacco 03/24/23 08:42 e-Cigarette/Vaping Use Never Used 03/24/23 08:42 Thrive Assessment: Date of Thrive Assessment Date Thrive assessed 05/26/21 03/24/23 08:42 Const General: cooperative, comfortable and no acute distress Orientation/consciousness: patient oriented x3 HENMT Head: Yes normocephalic Eyes General: appearance normal, both eyes and all related structures Neck Neck: Yes supple Resp Effort & Inspection: normal respiratory effort, no cough and no stridor Cardio Rhythm: regular rhythm Heart sounds: S1 normal heart sound present and S2 normal heart sound present Skin General skin exam: turgor normal Neuro General: patient oriented x3, tone normal and moves all extremities Extrem Right lower extremity: no edema Left lower extremity: no edema Assessment and Plan Assessment & Plan (1) Hx of subarachnoid hemorrhage: Comment: 09/23/2013-no surgery-2 negative angiograms-subsequently d/c'd from neurology-prn follow-up only and not needed since Code(s): Z86.79 - Personal history of other diseases of the circulatory system (2) Headache, acute: Code(s): R51.9 - Headache, unspecified Qualifiers: Headache type: unspecified Intractability: not intractable Qualified Code(s): R51.9 - Headache, unspecified (3) Diabetes type 2, controlled: Code(s): E11.9 - Type 2 diabetes mellitus without complications Qualifiers: 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 mcc insulin use: without predatory animal exterminator use 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 complication status: without complication Qualified Code(s): E11.9 - Type 2 diabetes mellitus without complications (4) Obesity due to excess calories: Code(s): E66.09 - Other obesity due to excess calories Qualifiers: Obesity classification: adult class 1 (BMI 30 - 34.9) Serious obesity comorbidity presence: with serious comorbidity Body mass index: BMI 33.0-33.9 Qualified Code(s): E66.09 - Other obesity due to excess calories; Z68.33 - Body mass index [BMI] 33.0-33.9, adult (5) Hyperlipidemia: Code(s): E78.5 - Hyperlipidemia, unspecified Qualifiers: Hyperlipidemia type: mixed hyperlipidemia Qualified Code(s): E78.2 - Mixed hyperlipidemia (6) Vitamin D deficiency: Code(s): E55.9 - Vitamin D deficiency, unspecified (7) Osteoarthritis of lumbar spine: Code(s): M47.816 - Spondylosis without myelopathy or radiculopathy, lumbar region Qualifiers: Spinal osteoarthritis complication: without myelopathy or radiculopathy Qualified Code(s): M47.816 - Spondylosis without myelopathy or radiculopathy, lumbar region Plan Patient is 57-year-old female came in today for her follow-up appointment Patient have a history of subarachnoid hemorrhage secondary to aneurysm. She has been fine for last few months 2 days ago patient was out with friends suddenly she had a severe headache which was 10 x 10 she tells me Her friend told her to go to emergency room but patient did not. Patient says that headache gradually improved and now it is 5 x 10 She had blurring of vision at that time as well, currently patient feels dizzy, no pain neck pain Patient says that she is scared that she has another bleed, and would like to have an imaging Explained to patient that she should have gone to emergency room. 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 She is also on propranolol 20 mg as headache prophylaxis Patient is on Lasix for chronic ankle swelling to be taken p.r.n. Patient is trying to lose weight she has joined a program Follow-up 3 months Orders: Orders CT angio head Today R51.9 - Headache, unspecified, Z86.79 - Personal history of other diseases of the circulatory system Coding Level of Care Code Est Pt Level 5 (89472) Diagnoses Hx of subarachnoid hemorrhage Z86.79 Acute nonintractable headache, unspecified headache type R51.9 Headache type: unspecified Intractability: not intractable Controlled type 2 diabetes mellitus without complication, without long-term current use of insulin E11.9 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 mcc insulin use: without predatory animal exterminator use 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 complication status: without complication Class 1 obesity due to excess calories with serious comorbidity and body mass index (BMI) of 33.0 to 33.9 in adult E66.09; Z68.33 Obesity classification: adult class 1 (BMI 30 - 34.9) Serious obesity comorbidity presence: with serious comorbidity Body mass index: BMI 33.0-33.9 Mixed hyperlipidemia E78.2 Hyperlipidemia type: mixed hyperlipidemia Vitamin D deficiency E55.9 Spondylosis of lumbar region without myelopathy or radiculopathy M47.816 Spinal osteoarthritis complication: without myelopathy or radiculopathy Time Spent (min) 42 Comment 5 prep, 20 with patient, 7 charting, 10 coordination of care
== END 2023-03-24 08:53 | disposition home or self-care (01) ==
PROVIDERS: PCP Internal Medicine; Visit Provider Internal Medicine
DX: E11.9 Type 2 diabetes mellitus without complications (principal); E66.09 Other obesity due to excess calories; Z68.33 Body mass index [BMI] 33.0-33.9, adult; Z86.79 Personal history of other diseases of the circulatory system; R51.9 Headache, unspecified; E78.2 Mixed hyperlipidemia; E55.9 Vitamin D deficiency, unspecified; M47.816 Spondylosis without myelopathy or radiculopathy, lumbar region
CPT/HCPCS: 99215

== ENCOUNTER 2023-04-02 07:34 | Outpatient (REF) | payer OTHER, SELFPAY ==
--- NOTE | ~2023-04-02 | CT_ITS ---
EXAMINATION: CT HEAD WITHOUT CONTRAST CLINICAL INFORMATION: A 57-year-old with history of subarachnoid hemorrhage. COMPARISON: 03/16/2018 CT brain. TECHNIQUE: Contiguous axial imaging was performed from the skull base to vertex without intravenous administration of contrast. This CT examination was performed using dose optimization techniques as appropriate, variously including the following: *Automated exposure control *Adjustment of mA and/or kV according to patient size (this includes techniques or standardized protocols for targeted exams where dose is matched to indication/reason for exam; i.e. extremities or head) *Use of iterative reconstruction technique DLP: 741 mGy-cm FINDINGS: BRAIN VOLUME: Within normal limits within the limitations of qualitative assessment. STRUCTURAL: No malformations. BRAIN AND MENINGES: No evidence for intracranial hemorrhage, extra-axial fluid collection, space-occupying process or mass effect. Gonzalez-white matter interface is preserved. There is no evidence for territorial infarct. Normal brain parenchymal morphology and attenuation, stable in appearance from previous study. There are bilateral mural calcifications of the carotid siphons. VENTRICLES AND SUBARACHNOID SPACES: The ventricular system and subarachnoid spaces are within normal range; there is no hydrocephalus. ORBITAL STRUCTURES: The the visualized intraorbital soft tissue structures are symmetric and normal in attenuation and morphology. OSSEOUS STRUCTURES, SINUSES/MASTOIDS, EXTRACRANIAL SOFT TISSUES: The calvarium and bony skull base appear grossly intact. The visualized airspaces are unopacified. Visualized extracranial soft tissue structures are within normal limits. CT/CT head/brain wo IV con IMPRESSION: 1. No evidence for intracranial hemorrhage, extra-axial fluid collection, space-occupying process, mass effect or hydrocephalus. 2. No significant interval change from previous study. No acute intracranial process.
== END 2023-04-02 07:35 | disposition home or self-care (01) ==
LOC: HO.CT 07:34
PROVIDERS: PCP Internal Medicine; Visit Provider Internal Medicine
DX: R51.9 Headache, unspecified (principal); Z86.79 Personal history of other diseases of the circulatory system
CPT/HCPCS: 70450

== ENCOUNTER 2023-05-31 08:14 | Outpatient (REF) | payer OTHER, SELFPAY ==
[2023-05-31 10:53] LABS: Alanine Aminotransferase 18 U/L (0-31); Albumin Level 4.4 g/dL (3.5-5.0); Alkaline Phosphatase 71 U/L (39-117); Anion Gap 9 (12-20); Aspartate Amino Transferase 17 U/L (5-31); Bilirubin Total 0.5 mg/dL (0.0-1.0); Blood Urea Nitrogen 11 mg/dL (9-16); Calcium 9.8 mg/dL (8.4-10.2); Carbon Dioxide 28 mmol/L (22-29); Chloride 107 mmol/L (96-108); Estimated Glomerular Filt Rate > 60; Glucose Random 112 mg/dL (60-115); Potassium 4.1 mmol/L (3.3-5.1); Sodium 140 mmol/L (135-145); Total Protein 7.3 g/dL (6.5-8.0)
[2023-05-31 11:14] LABS: Estimated Average Glucose 148 mg/dL; Hemoglobin A1c % 6.8 % (<6.0)
[2023-05-31 11:33] LABS: Creatinine Urine 40.38 mg/dL; Microalbum/Creatinine Ratio Ur 22.2 ug/mg cr (<30)
== END 2023-05-31 08:15 | disposition home or self-care (01) ==
LOC: HO.HMGCLDS 08:14
PROVIDERS: PCP Internal Medicine; Visit Provider Internal Medicine
DX: E66.09 Other obesity due to excess calories (principal); Z68.33 Body mass index [BMI] 33.0-33.9, adult; E11.9 Type 2 diabetes mellitus without complications
CPT/HCPCS: 36415; 80053; 82043; 82570; 83036

== ENCOUNTER 2023-06-09 13:29 | Outpatient (AMB) | payer OTHER, SELFPAY ==
[2023-06-09 13:31] VITALS: BP 124/80; PULSE 76; O2SAT 96; BMI 34.5
--- NOTE | 2023-06-09 13:31 | A.OFFPC_ITS ---
Vital Signs 06/09/23 13:31 Height 5 ft 3 in Weight 195 lb BMI 34.5 BP 124/80 Blood Pressure Location Rt brachial Position Sitting Pulse 76 Pulse Source Pulse Oximeter Pulse Oximetry (%) 96 Oxygen Delivery Method Room Air Intake Visit Reasons: 3 Month follow up Allergies No Known Allergies [No Known Allergies*] Allergy (Verified 06/09/23 13:33) Medication List - Last Reconciled 06/09/23 by Brandie Villalba MD atorvastatin 10 mg PO QAM bisacodyl (Dulcolax (bisacodyl)) 20 mg (4 x 5 mg) PO ONCE 1 day blood sugar diagnostic (FreeStyle Lite Strips) Use to check blood sugar twice daily: fasting and random blood-glucose meter (FreeStyle Lite Meter kit) Use to check blood sugar twice daily: fasting and random furosemide 20 mg PO QAM lancets (Accu-Chek Softclix Lancets) Use to check blood sugar twice daily: fasting and random metformin 1,000 mg PO DAILY omeprazole 20 mg PO QAM propranolol 20 mg PO QAM Tobacco use date assessed: 06/09/23 Dental Screening Dental Screen Date: 06/09/23 Did you have a dental visit in the last 12 months?: Yes Did you have a dental problem in the last 6 months where you did not have access to dental care?: Yes Was dental information given to patient?: Patient has dentist HPI 3 Month follow up HPI Details Patient is a 57-year-old female came in today for her three-month follow-up appointment Patient have DJD lumbar spine she says that most days she has pain and it makes her difficult for her to go on with her day I am starting her on Celebrex 200 mg she is to take 1 with breakfast Patient is diabetic her hemoglobin A1c is controlled at 6.8%, she is on metformin She is also obese with BMI of 34.5, patient is requesting Semaglutide injection prescription which I have sent for her She knows how to administer injections. Lipid disorder: Continue atorvastatin GERD is stable with omeprazole Headaches are better with propranolol Patient says that she is also on Lasix that was started by her previous PCP for swelling of her ankles and she is still on it She has not sure if she still needed, I have told her to stop it and see if she get swelling again Constipation is stable with Dulcolax. We will book a telemedicine visit in 3 weeks to follow-up on Celebrex and semaglutide Regular follow-up mid September [facility] Medical History Vitamin D deficiency Polyp of colon Cough Edema Hyperglycemia Abnormal colonoscopy Annual physical exam Normal Pap smear Mammogram normal Hx of subarachnoid hemorrhage GERD (gastroesophageal reflux disease) Hyperlipidemia Hypertension Surgical History History of esophagogastroduodenoscopy (EGD) H/O colonoscopy History of section Hx of cholecystectomy Family History Father HTN (hypertension) CVD (cardiovascular disease) AAA (abdominal aortic aneurysm) Unknown family medical history Mother Unknown family medical history 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 Brother No problems noted. Sister No problems noted. Son No problems noted. Daughter No problems noted. 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 1. Little interest or pleasure in doing things: not at all 2. Feeling down, depressed, or hopeless: not at all 3. Trouble falling or staying asleep, or sleeping too much: not at all 4. Feeling tired or having little energy: not at all 5. Poor appetite or overeating: not at all 6. Feeling bad about yourself - or that you are a failure or have let yourself or your family down: not at all 7. Trouble concentrating on things, such as reading the newspaper or watching television: not at all 8. Moving or speaking so slowly that other people could have noticed. Or the opposite - being so fidgety or restless that you have been moving around a lot more than usual: not at all 9. Thoughts that you would be better off or of hurting yourself in some way: not at all Total score: 0 Depression Screening Interpretation: Negative Depression Screening Done: Yes 60780 - PHQ-9 Billing: Yes Source: Developed by Drs. Berto Acevedo, Maria Esther Li, Toni Degroot and colleagues, with an educational benigno from [employer]. Thrive Questionnaire Date Thrive assessed: 06/09/23 I am a: Patient What is your living situation today?: I have a steady place to live Within the past 12 months, did the food you bought not last and you didn't have the money to get more?: Never true Within the past 12 months, did you worry whether your food would run out before you got money to buy more?: Never true Do you have trouble paying for medicines?: No Do you have trouble getting transportation to medical appointments?: No Do you have trouble paying your heating and electricity bill?: No Do you have trouble taking care of your child, family member or friend?: No Do you have trouble with day-to-day activities such as bathing, preparing meals, shopping, managing finances, etc.?: No Are you currently unemployed and looking for a job?: No Are you interested in more education?: No THRIVE Score: 0 TITI-7 AMB Questionnaire TITI-7 Date TITI - 7 assessed: 06/09/23 Feeling nervous, anxious, or on edge: 0 = Not at all Not being able to stop or control worryin = Not at all Worrying too much about different things: 0 = Not at all Trouble relaxin = Not at all Being so restless that it is hard to sit still: 0 = Not at all Becoming easily annoyed or irritable: 0 = Not at all Feeling afraid as if something awful might happen: 0 = Not at all Total TITI-7 score (0-4 normal; 5-9 mild; 10-14 moderate; 15-21 severe): 0 Source: Developed by Drs. Berto Acevedo, Toni Mcdonald and colleagues, with an educational benigno from [employer]. Review of Systems Const Denies chills and Denies fever(s) ENT Denies epistaxis and Denies nasal discharge Card Denies chest pain Resp Denies chest congestion, Denies cough and Denies hemoptysis GI Denies diarrhea and Denies nausea Skin/Breast Denies rash Neuro Reports no additional complaints Psych Reports no additional complaints Endo Reports no additional complaints Physical exam (Primary Care) Vital Signs: Last Vital Signs Pulse 76 06/09/23 13:31 BP 124/80 06/09/23 13:31 Pulse Ox 96 06/09/23 13:31 Oxygen Delivery Method Room Air 06/09/23 13:31 BMI result Body Mass Index 34.5 Tobacco/Smoking Status: Tobacco use Status Tobacco use date assessed 06/09/23 06/09/23 13:33 Patient Tobacco Use Status Never used Tobacco 06/09/23 13:32 e-Cigarette/Vaping Use Never Used 06/09/23 13:32 PHQ-9: PHQ-9 Score PHQ-9: Total score 0 06/09/23 13:39 Depression Screening Interpretation: Negative Thrive Assessment: Date of Thrive Assessment Date Thrive assessed 06/09/23 06/09/23 13:36 Const General: cooperative, comfortable and no acute distress Orientation/consciousness: patient oriented x3 HENMT Head: Yes normocephalic Eyes General: appearance normal, both eyes and all related structures Neck Neck: Yes supple Resp Effort & Inspection: normal respiratory effort, no cough and no stridor Cardio Rhythm: regular rhythm Heart sounds: S1 normal heart sound present and S2 normal heart sound present Skin General skin exam: turgor normal Neuro General: patient oriented x3, tone normal and moves all extremities Extrem Right lower extremity: no edema Left lower extremity: no edema Assessment and Plan Assessment & Plan (1) Diabetes type 2, controlled: Code(s): E11.9 - Type 2 diabetes mellitus without complications Qualifiers: 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 complication status: without complication 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 or intermediate school principal insulin use: without middle or intermediate school principal use Qualified Code(s): E11.9 - Type 2 diabetes mellitus without complications (2) Obesity due to excess calories: Code(s): E66.09 - Other obesity due to excess calories Qualifiers: Body mass index: BMI 33.0-33.9 Obesity classification: adult class 1 (BMI 30 - 34.9) Serious obesity comorbidity presence: with serious comorbidity Qualified Code(s): E66.09 - Other obesity due to excess calories; Z68.33 - Body mass index [BMI] 33.0-33.9, adult (3) Hyperlipidemia: Code(s): E78.5 - Hyperlipidemia, unspecified Qualifiers: Hyperlipidemia type: mixed hyperlipidemia Qualified Code(s): E78.2 - Mixed hyperlipidemia (4) Vitamin D deficiency: Code(s): E55.9 - Vitamin D deficiency, unspecified (5) Osteoarthritis of lumbar spine: Code(s): M47.816 - Spondylosis without myelopathy or radiculopathy, lumbar region Qualifiers: Spinal osteoarthritis complication: without myelopathy or radiculopathy Qualified Code(s): M47.816 - Spondylosis without myelopathy or radiculopathy, lumbar region (6) Chronic GERD: Code(s): K21.9 - Gastro-esophageal reflux disease without esophagitis (7) Constipation by delayed colonic transit: Code(s): K59.01 - Slow transit constipation (8) Recurrent headache: Code(s): R51.9 - Headache, unspecified Plan Patient is a 57-year-old female came in today for her three-month follow-up appointment Patient have DJD lumbar spine she says that most days she has pain and it makes her difficult for her to go on with her day I am starting her on Celebrex 200 mg she is to take 1 with breakfast Patient is diabetic her hemoglobin A1c is controlled at 6.8%, she is on metformin She is also obese with BMI of 34.5, patient is requesting Semaglutide injection prescription which I have sent for her She knows how to administer injections. Lipid disorder: Continue atorvastatin GERD is stable with omeprazole Headaches are better with propranolol Patient says that she is also on Lasix that was started by her previous PCP for swelling of her ankles and she is still on it She has not sure if she still needed, I have told her to stop it and see if she get swelling again Constipation is stable with Dulcolax. We will book a telemedicine visit in 3 weeks to follow-up on Celebrex and semaglutide Regular follow-up mid September Medications: New celecoxib (Celebrex) 200 mg PO DAILY 30 caps 0RF semaglutide (weight loss) (Wegovy) administer weeks 1 through 4 of therapy 0.25 mg (0.5 mL) subcut QWEEK 2 mL 0RF E11.9 - Type 2 diabetes mellitus without complications, E66.09 - Other obesity due to excess calories, Z68.33 - Body mass index [BMI] 33.0-33.9, adult semaglutide (weight loss) (Germanvricardo) administer weeks 1 through 4 of therapy 0.25 mg (0.5 mL) subcut QWEEK 2 mL 0RF E11.9 - Type 2 diabetes mellitus without complications, E66.09 - Other obesity due to excess calories, Z68.33 - Body mass index [BMI] 33.0-33.9, adult Coding Level of Care Code Est Pt Level 4 (63054) Diagnoses Controlled type 2 diabetes mellitus without complication, without long-term current use of insulin E11.9 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 complication status: without complication 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 or intermediate school principal insulin use: without retirement use Class 1 obesity due to excess calories with serious comorbidity and body mass index (BMI) of 33.0 to 33.9 in adult E66.09; Z68.33 Body mass index: BMI 33.0-33.9 Obesity classification: adult class 1 (BMI 30 - 34.9) Serious obesity comorbidity presence: with serious comorbidity Mixed hyperlipidemia E78.2 Hyperlipidemia type: mixed hyperlipidemia Vitamin D deficiency E55.9 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
== END 2023-06-09 15:33 | disposition home or self-care (01) ==
PROVIDERS: PCP Internal Medicine; Visit Provider Internal Medicine
DX: E11.9 Type 2 diabetes mellitus without complications (principal); E66.09 Other obesity due to excess calories; Z68.33 Body mass index [BMI] 33.0-33.9, adult; E78.2 Mixed hyperlipidemia; E55.9 Vitamin D deficiency, unspecified; M47.816 Spondylosis without myelopathy or radiculopathy, lumbar region; K21.9 Gastro-esophageal reflux disease without esophagitis; K59.01 Slow transit constipation; R51.9 Headache, unspecified
CPT/HCPCS: 99214

== ENCOUNTER 2023-06-25 09:01 | Outpatient (AMB) | payer OTHER, SELFPAY ==
[2023-06-25 09:00] VITALS: BP 134/90; PULSE 70; TEMP 36.4; O2SAT 97; BMI 34.2
--- NOTE | 2023-06-25 09:00 | AM.OFFWIN_ITS ---
Intake Vital Signs 06/25/23 09:00 Height 5 ft 3 in Weight 193 lb BMI 34.2 BP 134/90 H Blood Pressure Location Lt brachial Position Sitting Pulse 70 Pulse Source Pulse Oximeter Temp 97.5 F Temp Source Temporal Artery Scan Pulse Oximetry (%) 97 Oxygen Delivery Method Room Air Intake Visit Reasons: EP Rt ear pain/swelling Intake Note: pt is here today for rt ear pain swelling started yesterday Patient Tobacco Use Status: Never used Tobacco Allergies No Known Allergies [No Known Allergies*] Allergy (Verified 06/25/23 09:04) Do you need a note to return to daycare/school/sports/work: No HPI HPI Comments History of Present Illness Details 57 y/o female patient who presents to [facility] with c/o Right ear pain and right Jaw pain since yesterday. Denies URI symptoms. PFSH Medical History Vitamin D deficiency Polyp of colon Cough Edema Hyperglycemia Abnormal colonoscopy Annual physical exam Normal Pap smear Mammogram normal Hx of subarachnoid hemorrhage GERD (gastroesophageal reflux disease) Hyperlipidemia Hypertension Surgical History History of esophagogastroduodenoscopy (EGD) H/O colonoscopy History of section Hx of cholecystectomy Family History Father HTN (hypertension) CVD (cardiovascular disease) AAA (abdominal aortic aneurysm) Unknown family medical history Mother Unknown family medical history 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 Brother No problems noted. Sister No problems noted. Son No problems noted. Daughter No problems noted. 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[employer] [employer] Housing: House Are you a primary patient care provider to a significant other at home: No Do you presently have visiting nurse or other home services: No Alcohol intake: never Patient Tobacco Use Status: Never used Tobacco e-Cigarette/Vaping Use: Never Used Second Hand Smoke Exposure: No Current occupational status: employed Cognitive needs: No Hearing needs: No Vision needs: Yes Review of Systems Const All systems reviewed & are unremarkable except as noted in HPI and below Physical Exam Vital Signs: Last Vital Signs Temp 97.5 F 05/03/24 09:00 Pulse 70 06/25/23 09:00 BP 134/90 H 06/25/23 09:00 Pulse Ox 97 06/25/23 09:00 Oxygen Delivery Method Room Air 06/25/23 09:00 BMI result Body Mass Index 34.2 Const General: comfortable and no acute distress Nutritional Appearance: overweight Orientation/consciousness: patient oriented x3 HEENT Head: Yes normocephalic Ears: external ears normal and TM abnormal bulging and with fluid behind the TM bilateral; not bullous, not dull and not with effusion General nose exam: Abnormal mucous membranes and turbinates present pale Face and sinus: Yes sinuses nontender Mouth: moist mucous membranes Throat: Yes posterior oropharynx normal Resp Effort & Inspection: normal respiratory effort and able to speak in complete sentences Auscultation: clear to auscultation bilaterally, no crackles, no rales, no rhonchi and no wheezes Cardio Rate: regular rate Rhythm: regular rhythm Neuro General: patient oriented x3, gait normal and moves all extremities Psych Speech and movement: Normal speech and movement present Assessment & Plan Assessment & Plan (1) Acute otalgia: Code(s): H92.09 - Otalgia, unspecified ear Qualifiers: Laterality: right Qualified Code(s): H92.01 - Otalgia, right ear Plan: - No infection, but there is fluid and bulging both ears - Will try Decongestant for few days - If ryan worse RTC - Diclofenac for pain relief. Medications: New diclofenac sodium 25 mg PO BID 20 tabs 0RF H92.01 - Otalgia, right ear fexofenadine-pseudoephedrine 60-120 mg ER (Rhea-D 12 Hour) 1 tab PO Q12H PRN 30 tabs 0RF allergy symptoms H92.01 - Otalgia, right ear Coding Level of Care Code Est Pt Level 3 (86210) Diagnoses Acute pain of right ear H92.01 Laterality: right Time Spent (min) 15
== END 2023-06-25 09:56 | disposition home or self-care (01) ==
PROVIDERS: PCP Internal Medicine; Visit Provider Nurse Practitioner Family
DX: H92.01 Otalgia, right ear (principal)
CPT/HCPCS: 99213

== ENCOUNTER 2023-07-01 07:17 | Outpatient (AMB) | payer OTHER, SELFPAY ==
--- NOTE | 2023-07-01 09:20 | MHC.PC.OV ---
Intake Visit Reasons: 3 week f/u [phone] Allergies No Known Allergies [No Known Allergies*] Allergy (Verified 07/01/23 09:21) Medication List - Last Reconciled 07/01/23 by Brandie Villalba MD atorvastatin 10 mg PO QAM blood sugar diagnostic (FreeStyle Lite Strips) Use to check blood sugar twice daily: fasting and random blood-glucose meter (FreeStyle Lite Meter kit) Use to check blood sugar twice daily: fasting and random furosemide 20 mg PO QAM lancets (Accu-Chek Softclix Lancets) Use to check blood sugar twice daily: fasting and random metformin 1,000 mg PO DAILY omeprazole 20 mg PO QAM propranolol 20 mg PO QAM Tobacco use date assessed: 07/01/23 Dental Screening Dental Screen Date: 07/01/23 Did you have a dental visit in the last 12 months?: Yes Did you have a dental problem in the last 6 months where you did not have access to dental care?: No Was dental information given to patient?: Patient has dentist HPI 3 week f/u [phone] HPI Details Patient was not given Semaglutide injection, insurance declined it Celebrex did help her with back pain patient have DJD spine However it has started causing heartburn so patient had to stop Currently patient says that she is not in pain that much Every now and then she has flare-up of pain about 2 or 3 times a month She is doing well with just Tylenol If her pain started to get worse again she will get back to me. [facility] Medical History Vitamin D deficiency Polyp of colon Cough Edema Hyperglycemia Abnormal colonoscopy Annual physical exam Normal Pap smear Mammogram normal Hx of subarachnoid hemorrhage GERD (gastroesophageal reflux disease) Hyperlipidemia Hypertension Surgical History History of esophagogastroduodenoscopy (EGD) H/O colonoscopy History of section Hx of cholecystectomy Family History Father HTN (hypertension) CVD (cardiovascular disease) AAA (abdominal aortic aneurysm) Unknown family medical history Mother Unknown family medical history 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 Brother No problems noted. Sister No problems noted. Son No problems noted. Daughter No problems noted. 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 How often do you have a drink containing alcohol?: Never 3. How often do you have six or more drinks on one occasion?: Never Total Score: 0 Score Reviewed/Action Taken: Yes TITI-7 AMB Questionnaire TITI-7 Date TITI - 7 assessed: 06/09/23 Source: Developed by Drs. Berto Acevedo, Maria Esther Li, Toni Degroot and colleagues, with an educational benigno from [employer]. Review of Systems Const Denies chills and Denies fever(s) ENT Denies epistaxis and Denies nasal discharge Card Denies chest pain Resp Denies chest congestion, Denies cough and Denies hemoptysis GI Denies diarrhea and Denies nausea Skin/Breast Denies rash Neuro Reports no additional complaints Psych Reports no additional complaints Endo Reports no additional complaints Physical exam (Primary Care) Tobacco/Smoking Status: Tobacco use Status Tobacco use date assessed 07/01/23 07/01/23 09:22 Patient Tobacco Use Status Never used Tobacco 07/01/23 09:22 e-Cigarette/Vaping Use Never Used 07/01/23 09:22 Thrive Assessment: Date of Thrive Assessment Date Thrive assessed 06/09/23 07/01/23 09:22 Telehealth Telehealth Telehealth Platform: [employer] Location of provider rendering services: practice address Location of patient: address on file Patient Identification confirmed using: Name, : Yes Telehealth method: voice only Patient verbally consented to treatment: Yes Patient verbally consented to billing insurance company: Yes Patient informed of any privacy concerns related to visit: Yes Minutes spent on Phone/Video with Pt.: 13 Assessment and Plan Assessment & Plan (1) Osteoarthritis of lumbar spine: Code(s): M47.816 - Spondylosis without myelopathy or radiculopathy, lumbar region Qualifiers: Spinal osteoarthritis complication: without myelopathy or radiculopathy Qualified Code(s): M47.816 - Spondylosis without myelopathy or radiculopathy, lumbar region Plan Patient was not given Semaglutide injection, insurance declined it Celebrex did help her with back pain patient have DJD spine However it has started causing heartburn so patient had to stop Currently patient says that she is not in pain that much Every now and then she has flare-up of pain about 2 or 3 times a month She is doing well with just Tylenol If her pain started to get worse again she will get back to me. Coding Level of Care Code Tele Est Pt Level 3 (24471) Diagnoses Spondylosis of lumbar region without myelopathy or radiculopathy M47.816 Spinal osteoarthritis complication: without myelopathy or radiculopathy
== END 2023-07-01 11:50 | disposition home or self-care (01) ==
LOC: HO.HMGC 07:17
PROVIDERS: PCP Internal Medicine; Visit Provider Internal Medicine
DX: M47.816 Spondylosis without myelopathy or radiculopathy, lumbar region (principal)
CPT/HCPCS: 99213

== ENCOUNTER 2023-10-05 09:52 | Outpatient (AMB) | payer OTHER, SELFPAY ==
--- NOTE | 2023-10-05 09:56 | MHC.PC.OV ---
Vital Signs 10/05/23 09:57 Height 5 ft 3 in Weight 188 lb 4 oz BMI 33.3 BP 122/80 Blood Pressure Location Rt brachial Position Sitting Pulse 78 Pulse Source Pulse Oximeter Pulse Oximetry (%) 95 Oxygen Delivery Method Room Air Intake Visit Reasons: 4m follow-up Allergies No Known Allergies [No Known Allergies*] Allergy (Verified 10/05/23 09:56) Medication List - Last Reconciled 10/05/23 by Brandie Villalba MD atorvastatin 10 mg PO QAM blood sugar diagnostic (FreeStyle Lite Strips) Use to check blood sugar twice daily: fasting and random blood-glucose meter (FreeStyle Lite Meter kit) Use to check blood sugar twice daily: fasting and random furosemide 20 mg PO QAM lancets (Accu-Chek Softclix Lancets) Use to check blood sugar twice daily: fasting and random metformin 1,000 mg PO DAILY omeprazole 20 mg PO QAM propranolol 20 mg PO QAM Tobacco use date assessed: 10/05/23 Dental Screening Dental Screen Date: 10/05/23 Did you have a dental visit in the last 12 months?: Yes Did you have a dental problem in the last 6 months where you did not have access to dental care?: No Was dental information given to patient?: Patient has dentist HPI 4m follow-up HPI Details Patient is a 58-year-old female came in today for her follow-up Patient chronic pain secondary to lumbar DJD manageable at this time. Patient is diabetic her hemoglobin A1c is controlled at 5.9%, I am reducing metformin to 500 mg from 1 g Struggling with weight. Lipid disorder: Complaining of severe leg pains mostly in the morning and all day long, Patient says that it feels like in the muscle, I am stopping the statin to see if the pain improves GERD is stable with omeprazole Headaches are better with propranolol Taking Lasix only once a week for ankle swelling Constipation is stable with Dulcolax. Follow-up 4 months, labs are needed before visit order placed [facility] Medical History Vitamin D deficiency Polyp of colon Cough Edema Hyperglycemia Abnormal colonoscopy Annual physical exam Normal Pap smear Mammogram normal Hx of subarachnoid hemorrhage GERD (gastroesophageal reflux disease) Hyperlipidemia Hypertension Surgical History History of esophagogastroduodenoscopy (EGD) H/O colonoscopy History of section Hx of cholecystectomy Family History Father HTN (hypertension) CVD (cardiovascular disease) AAA (abdominal aortic aneurysm) Unknown family medical history Mother Unknown family medical history 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 Brother No problems noted. Sister No problems noted. Son No problems noted. Daughter No problems noted. 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 1. Little interest or pleasure in doing things: not at all 2. Feeling down, depressed, or hopeless: not at all 3. Trouble falling or staying asleep, or sleeping too much: nearly every day 4. Feeling tired or having little energy: several days 5. Poor appetite or overeating: not at all 6. Feeling bad about yourself - or that you are a failure or have let yourself or your family down: not at all 7. Trouble concentrating on things, such as reading the newspaper or watching television: not at all 8. Moving or speaking so slowly that other people could have noticed. Or the opposite - being so fidgety or restless that you have been moving around a lot more than usual: not at all 9. Thoughts that you would be better off or of hurting yourself in some way: not at all Total score: 4 Depression Screening Interpretation: Negative Depression Screening Done: Yes 09002 - PHQ-9 Billing: Yes Source: Developed by Drs. Berto Acevedo, Maria Esther Li, Toni Degroot and colleagues, with an educational benigno from [employer]. Thrive Questionnaire Date Thrive assessed: 08/13/24 I am a: Patient What is your living situation today?: I have a steady place to live Within the past 12 months, did the food you bought not last and you didn't have the money to get more?: Never true Within the past 12 months, did you worry whether your food would run out before you got money to buy more?: Never true Do you have trouble paying for medicines?: No Do you have trouble getting transportation to medical appointments?: No Do you have trouble paying your heating and electricity bill?: No Do you have trouble taking care of your child, family member or friend?: No Do you have trouble with day-to-day activities such as bathing, preparing meals, shopping, managing finances, etc.?: No Are you currently unemployed and looking for a job?: No Are you interested in more education?: No Please select the resources that you would like help with: Housing/Correction Currently or been in a relationship where the following occur: No concerns reported THRIVE Score: 0 AUDIT C Alcohol Use Questionnaire (AUDIT-C) 1. How often do you have a drink containing alcohol?: Never 3. How often do you have six or more drinks on one occasion?: Never Total Score: 0 Score Reviewed/Action Taken: Yes TITI-7 AMB Questionnaire TITI-7 Date TITI - 7 assessed: 10/05/23 Feeling nervous, anxious, or on edge: 0 = Not at all Not being able to stop or control worryin = Not at all Worrying too much about different things: 0 = Not at all Trouble relaxin = Not at all Being so restless that it is hard to sit still: 0 = Not at all Becoming easily annoyed or irritable: 0 = Not at all Feeling afraid as if something awful might happen: 0 = Not at all Total TITI-7 score (0-4 normal; 5-9 mild; 10-14 moderate; 15-21 severe): 0 Source: Developed by Drs. Berto Acevedo, Maria Esther Li, Toni Degroot and colleagues, with an educational benigno from [employer]. TITI-7 Assessment Billing TITI-7 Assessment Tool: TITI-7 Assessment 59927 Review of Systems Const Denies chills and Denies fever(s) ENT Denies epistaxis and Denies nasal discharge Card Denies chest pain Resp Denies chest congestion, Denies cough and Denies hemoptysis GI Denies diarrhea and Denies nausea Skin/Breast Denies rash Neuro Reports no additional complaints Psych Reports no additional complaints Endo Reports no additional complaints Physical exam (Primary Care) Vital Signs: Last Vital Signs Pulse 78 10/05/23 09:57 BP 122/80 10/05/23 09:57 Pulse Ox 95 10/05/23 09:57 Oxygen Delivery Method Room Air 10/05/23 09:57 BMI result Body Mass Index 33.3 Tobacco/Smoking Status: Tobacco use Status Tobacco use date assessed 10/05/23 10/05/23 10:03 Patient Tobacco Use Status Never used Tobacco 10/05/23 10:03 e-Cigarette/Vaping Use Never Used 10/05/23 10:03 PHQ-9: PHQ-9 Score PHQ-9: Total score 4 10/05/23 10:15 Depression Screening Interpretation: Negative Thrive Assessment: Date of Thrive Assessment Date Thrive assessed 10/05/23 10/05/23 10:03 Currently or been in a relationship where the following occur: No concerns reported Const General: cooperative, comfortable and no acute distress Orientation/consciousness: patient oriented x3 HENMT Head: Yes normocephalic Eyes General: appearance normal, both eyes and all related structures Neck Neck: Yes supple Resp Effort & Inspection: normal respiratory effort, no cough and no stridor Cardio Rhythm: regular rhythm Heart sounds: S1 normal heart sound present and S2 normal heart sound present Skin General skin exam: turgor normal Neuro General: patient oriented x3, tone normal and moves all extremities Extrem Right lower extremity: no edema Left lower extremity: no edema Results AMB Hemoglobin A1c AMB Hemoglobin A1c 5.9 % Last Edit by Ted Watson CMA on 10/05/23 10:46 Results Reviewed Results Reviewed: Laboratory Last Values Hgb A1c (Clinic) 5.9 % (4.0-6.0) 10/05/23 10:46 Assessment and Plan Assessment & Plan (1) Diabetes type 2, controlled: Code(s): E11.9 - Type 2 diabetes mellitus without complications Qualifiers: 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 group home insulin use: without buttermilk drier operator use 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 complication status: without complication Qualified Code(s): E11.9 - Type 2 diabetes mellitus without complications (2) Bilateral leg pain: Code(s): M79.604 - Pain in right leg; M79.605 - Pain in left leg (3) Obesity due to excess calories: Code(s): E66.09 - Other obesity due to excess calories Qualifiers: Obesity classification: adult class 1 (BMI 30 - 34.9) Serious obesity comorbidity presence: with serious comorbidity Body mass index: BMI 33.0-33.9 Qualified Code(s): E66.09 - Other obesity due to excess calories; Z68.33 - Body mass index [BMI] 33.0-33.9, adult (4) Hyperlipidemia: Code(s): E78.5 - Hyperlipidemia, unspecified Qualifiers: Hyperlipidemia type: mixed hyperlipidemia Qualified Code(s): E78.2 - Mixed hyperlipidemia (5) Vitamin D deficiency: Code(s): E55.9 - Vitamin D deficiency, unspecified (6) Osteoarthritis of lumbar spine: Code(s): M47.816 - Spondylosis without myelopathy or radiculopathy, lumbar region Qualifiers: Spinal osteoarthritis complication: without myelopathy or radiculopathy Qualified Code(s): M47.816 - Spondylosis without myelopathy or radiculopathy, lumbar region (7) Chronic GERD: Code(s): K21.9 - Gastro-esophageal reflux disease without esophagitis (8) Constipation by delayed colonic transit: Code(s): K59.01 - Slow transit constipation (9) Recurrent headache: Code(s): R51.9 - Headache, unspecified Plan Patient is a 58-year-old female came in today for her follow-up Patient chronic pain secondary to lumbar DJD manageable at this time. Patient is diabetic her hemoglobin A1c is controlled at 5.9%, I am reducing metformin to 500 mg from 1 g Struggling with weight. Lipid disorder: Complaining of severe leg pains mostly in the morning and all day long, Patient says that it feels like in the muscle, I am stopping the statin to see if the pain improves GERD is stable with omeprazole Headaches are better with propranolol Taking Lasix only once a week for ankle swelling Constipation is stable with Dulcolax. Follow-up 4 months, labs are needed before visit order placed Orders: Orders AMB Hemoglobin A1c Today Z13.9 - Encounter for screening, unspecified Hemoglobin A1c Today E11.9 - Type 2 diabetes mellitus without complications, E66.09 - Other obesity due to excess calories, E78.2 - Mixed hyperlipidemia, K21.9 - Gastro-esophageal reflux disease without esophagitis, M79.604 - Pain in right leg, M79.605 - Pain in left leg, R51.9 - Headache, unspecified, Z68.33 - Body mass index [BMI] 33.0-33.9, adult Comprehensive [place]. Panel Fast Today E11.9 - Type 2 diabetes mellitus without complications, E66.09 - Other obesity due to excess calories, E78.2 - Mixed hyperlipidemia, K21.9 - Gastro-esophageal reflux disease without esophagitis, M79.604 - Pain in right leg, M79.605 - Pain in left leg, R51.9 - Headache, unspecified, Z68.33 - Body mass index [BMI] 33.0-33.9, adult Lipid Panel Today E11.9 - Type 2 diabetes mellitus without complications, E66.09 - Other obesity due to excess calories, E78.2 - Mixed hyperlipidemia, K21.9 - Gastro-esophageal reflux disease without esophagitis, M79.604 - Pain in right leg, M79.605 - Pain in left leg, R51.9 - Headache, unspecified, Z68.33 - Body mass index [BMI] 33.0-33.9, adult Creatine Kinase Total Today E11.9 - Type 2 diabetes mellitus without complications, E66.09 - Other obesity due to excess calories, E78.2 - Mixed hyperlipidemia, K21.9 - Gastro-esophageal reflux disease without esophagitis, M79.604 - Pain in right leg, M79.605 - Pain in left leg, R51.9 - Headache, unspecified, Z68.33 - Body mass index [BMI] 33.0-33.9, adult Microalbumin, Random (w Creat) Today E11.9 - Type 2 diabetes mellitus without complications, E66.09 - Other obesity due to excess calories, E78.2 - Mixed hyperlipidemia, K21.9 - Gastro-esophageal reflux disease without esophagitis, M79.604 - Pain in right leg, M79.605 - Pain in left leg, R51.9 - Headache, unspecified, Z68.33 - Body mass index [BMI] 33.0-33.9, adult Complete Blood Count Auto Diff Today E11.9 - Type 2 diabetes mellitus without complications, E66.09 - Other obesity due to excess calories, E78.2 - Mixed hyperlipidemia, K21.9 - Gastro-esophageal reflux disease without esophagitis, M79.604 - Pain in right leg, M79.605 - Pain in left leg, R51.9 - Headache, unspecified, Z68.33 - Body mass index [BMI] 33.0-33.9, adult C Reactive Protein Today E11.9 - Type 2 diabetes mellitus without complications, E66.09 - Other obesity due to excess calories, E78.2 - Mixed hyperlipidemia, K21.9 - Gastro-esophageal reflux disease without esophagitis, M79.604 - Pain in right leg, M79.605 - Pain in left leg, R51.9 - Headache, unspecified, Z68.33 - Body mass index [BMI] 33.0-33.9, adult Medications: On Hold atorvastatin Hold Comment: Doctor's Order 10 mg PO QAM 90 tabs 0RF Coding Level of Care Code Est Pt Level 4 (81128) Diagnoses Controlled type 2 diabetes mellitus without complication, without long-term current use of insulin E11.9 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 group home insulin use: without buttermilk drier operator use 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 complication status: without complication Bilateral leg pain M79.604; M79.605 Class 1 obesity due to excess calories with serious comorbidity and body mass index (BMI) of 33.0 to 33.9 in adult E66.09; Z68.33 Obesity classification: adult class 1 (BMI 30 - 34.9) Serious obesity comorbidity presence: with serious comorbidity Body mass index: BMI 33.0-33.9 Mixed hyperlipidemia E78.2 Hyperlipidemia type: mixed hyperlipidemia Vitamin D deficiency E55.9 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 Additional Codes TITI-7 Assessment Billing - TITI-7 Assessment Tool: TITI-7 Assessment [id number] ([id number])
[2023-10-05 09:57] VITALS: BP 122/80; PULSE 78; O2SAT 95; BMI 33.3
== END 2023-10-05 10:20 | disposition home or self-care (01) ==
PROVIDERS: PCP Internal Medicine; Visit Provider Internal Medicine
DX: E11.9 Type 2 diabetes mellitus without complications (principal); M79.604 Pain in right leg; E66.09 Other obesity due to excess calories; Z68.33 Body mass index [BMI] 33.0-33.9, adult; M79.605 Pain in left leg; E78.2 Mixed hyperlipidemia; E55.9 Vitamin D deficiency, unspecified; M47.816 Spondylosis without myelopathy or radiculopathy, lumbar region; K21.9 Gastro-esophageal reflux disease without esophagitis; K59.01 Slow transit constipation; R51.9 Headache, unspecified
CPT/HCPCS: 83036; 99214

== ENCOUNTER 2024-02-04 09:58 | Outpatient (REF) | payer OTHER, SELFPAY ==
[2024-02-04 10:22] LABS: MANUAL DIFF FLAG NO
[2024-02-04 10:51] LABS: Basophils Percent Auto 0.5 % (0-2); Eosinophils Absolute Auto 0.1 X10*3/uL (0.0-0.4); Eosinophils Percent Auto 1.1 % (0-4); Hematocrit 37.5 % (37.0-47.0); Imm Gran Abs Auto 0.02 X10*3/uL (0.00-0.03); Imm Gran Pct Auto 0.3 % (0.0-0.4); Lymphocytes Absolute Auto 1.5 X10*3/uL (1.2-4.9); Lymphocytes Percent Auto 23.8 % (20-40); Mean Corpuscular HGB Conc 34.7 g/dl (31.0-35.0); Mean Corpuscular Hemoglobin 28.1 pg (27.0-33.0); Mean Corpuscular Volume 81.2 fL (80.0-98.0); Mean Platelet Volume 11.1 fL (9.4-12.3); Monocytes Absolute Auto 0.5 X10*3/uL (0.1-1.2); Monocytes Percent Auto 7.2 % (2-11); Neutrophils Absolute Auto 4.2 x10*3/uL (2.0-8.3); Neutrophils Percent Auto 67.1 % (45-73); Platelet Count 250 X10*3/uL (160-400); Red Blood Count 4.62 X10*6/uL (4.20-5.50); Red Cell Distribution Width 12.8 % (11.0-16.0); White Blood Count 6.2 X10*3/uL (4.8-10.8)
[2024-02-04 11:02] LABS: Estimated Average Glucose 111 mg/dL; Hemoglobin A1C 117.1688 umol/L; Hemoglobin A1c % 5.5 % (<6.0); Total Hemoglobin (HGBA1C) 3245.8481 umol/L
[2024-02-04 11:32] LABS: Creatinine Urine 236.24 mg/dL
[2024-02-04 11:50] LABS: Alanine Aminotransferase 21 U/L (0-31); Albumin Level 4.2 g/dL (3.5-5.0); Alkaline Phosphatase 67 U/L (39-117); Anion Gap 13 (12-20); Aspartate Amino Transferase 25 U/L (5-31); Bilirubin Total 0.5 mg/dL (0.0-1.0); Blood Urea Nitrogen 11 mg/dL (9-16); C Reactive Protein 0.57 mg/dL (< or = 0.50); Calcium 9.7 mg/dL (8.4-10.2); Carbon Dioxide 24 mmol/L (22-29); Chloride 108 mmol/L (96-108); Cholesterol 245 mg/dL (<200); Estimated Glomerular Filt Rate > 60; Glucose Fasting 104 mg/dL (60-99); HDL Cholesterol 41 mg/dL (>40); LDL Cholesterol Calculated 149 mg/dL (<100); Potassium 4.2 mmol/L (3.3-5.1); Sodium 141 mmol/L (135-145); Total Protein 7.5 g/dL (6.5-8.0); Triglycerides 278 mg/dL (<150)
== END 2024-02-04 09:59 | disposition home or self-care (01) ==
LOC: HO.LAB 09:58
PROVIDERS: PCP Internal Medicine; Visit Provider Internal Medicine
DX: E66.09 Other obesity due to excess calories (principal); Z68.33 Body mass index [BMI] 33.0-33.9, adult; E11.9 Type 2 diabetes mellitus without complications; K21.9 Gastro-esophageal reflux disease without esophagitis; M79.604 Pain in right leg; M79.605 Pain in left leg; R51.9 Headache, unspecified; E78.2 Mixed hyperlipidemia
CPT/HCPCS: 36415; 80053; 80061; 82043; 82550; 82570; 83036; 85025; 86140

== ENCOUNTER 2024-02-09 09:27 | Outpatient (AMB) | payer OTHER, SELFPAY ==
--- NOTE | 2024-02-09 09:34 | A.OFFPC_ITS ---
Vital Signs 02/09/24 09:35 Height 5 ft 3 in Weight 175 lb 2 oz BMI 31.0 BP 128/80 Blood Pressure Location Rt brachial Position Sitting Pulse 70 Pulse Source Pulse Oximeter Pulse Oximetry (%) 97 Oxygen Delivery Method Room Air Intake Visit Reasons: 4 month Allergies No Known Allergies [No Known Allergies*] Allergy (Verified 02/09/24 09:37) Medication List - Last Reconciled 02/09/24 by Brandie Villalba MD atorvastatin 10 mg PO QAM blood sugar diagnostic (FreeStyle Lite Strips) Use to check blood sugar twice daily: fasting and random blood-glucose meter (FreeStyle Lite Meter kit) Use to check blood sugar twice daily: fasting and random furosemide 20 mg PO QAM lancets (Accu-Chek Softclix Lancets) Use to check blood sugar twice daily: fasting and random metformin 1,000 mg PO DAILY omeprazole 20 mg PO QAM propranolol 20 mg PO QAM Tobacco use date assessed: 02/09/24 Dental Screening Dental Screen Date: 02/09/24 Did you have a dental visit in the last 12 months?: Yes Did you have a dental problem in the last 6 months where you did not have access to dental care?: No Was dental information given to patient?: Patient has dentist HPI 4 month HPI Details Assessment and Plan 58-year-old female with a history of hyp ertension, obesity, hyperlipidemia, headaches, and gastroesophageal reflux disease presenting for a follow-up visit. The patient reports improvement in back pain possibly related to weight loss. She continues to experience occasional headaches and recent upper respiratory infection but denies significant swelling. Her blood pressure is well- controlled. Laboratory results indicate elevated LDL cholesterol. 1. Upper Respiratory Infection Recently completed a course of azithromycin. Symptoms have resolved, and no further intervention is required at this time. 3. Obesity The patient has experienced weight loss, contributing to improved symptoms. Continued emphasis on diet and exercise is advised to further address obesity. 4. Hyperlipidemia LDL cholesterol levels have increased to 149 mg/dL. Discussed non-statin alternatives due to muscle cramping caused by atorvastatin. Initiation of Zetia was recommended, with a repeat lipid panel in three months. 5. Headaches Occasional headaches persist despite propranolol treatment. The patient should continue the current regimen and seek immediate care if severe headaches recur. Diagnostic results - Labs: - Complete Blood Count (CBC): No rmal - Electrolytes: Normal - Kidney Function: Normal - Fasting Blood Sugar: 104 mg/dL - Hemoglobin A1c: 5.5% - Liver Enzymes: Normal - LDL Cholesterol: 149 mg/dL Problem List - Obesity - Hyperlipidemia - Headaches - Gastroesophageal Reflux Disease Medications - Lasix (Furosemide): As needed for alirio a; patient currently takes half a pill as needed. - Propranolol: For headache management. - Omeprazole: For gastroesophageal reflu x disease. - Metformin 1g daily: Presumed for gluco se control. Review of Systems - Cardiovascular: Denies significant swe lling. - Neurological: Reports occasional heada ches. - Respiratory: Reports recent upper resp iratory infection. General: No fever no chills neurological: No headaches no dizziness ear nose throat: No sore throat no hearing difficulty no ear pain musculoskeletal: Usual aches and pains nothing new cardiovascular: No syncope, no chest pain, no palpitations gastrointestinal: No nausea vomiting or diarrhea endocrine: No polyuria polydipsia no heat intolerance genitourinary: No dysuria skin: No new complaints Physical Exam general: No acute distress HEENT: No acute findings neck: Supple respiratory system: Able to talk in full sentences, no audible wheeze, no stridor cardiovascular: S1-S2 gastrointestinal: No pain extremities: No swelling LABORER SALVAGE: Alert awake oriented x3 motor sensory intact skin: Normal turgor Patient Instructions - Continue current hypertension, gastroe sophageal reflux disease, and headache management medications as prescribed. - Adopt dietary and exercise interventio ns to support continued weight loss. - Start Zetia and take one tablet daily as a substitute for atorvastatin for hyperlipidemia management. - Return for repeat lipid panel in three months while fasting. - Monitor for and report severe headache s promptly. - Follow general health maintenance and contact sooner if new or concerning symptoms develop. [facility] Medical History Vitamin D deficiency Polyp of colon Cough Edema Hyperglycemia Abnormal colonoscopy Annual physical exam Normal Pap smear Mammogram normal Hx of subarachnoid hemorrhage GERD (gastroesophageal reflux disease) Hyperlipidemia Hypertension Surgical History History of esophagogastroduodenoscopy (EGD) H/O colonoscopy History of section Hx of cholecystectomy Family History Father HTN (hypertension) CVD (cardiovascular disease) AAA (abdominal aortic aneurysm) Unknown family medical history Mother Unknown family medical history 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 Brother No problems noted. Sister No problems noted. Son No problems noted. Daughter No problems noted. 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 [employer] Housing: House Are you a primary childcare director to a significant other at home: No Do you presently have visiting nurse or other home services: No Alcohol intake: never Patient Tobacco Use Status: Never used Tobacco e-Cigarette/Vaping Use: Never Used Second Hand Smoke Exposure: No service: No Current occupational status: employed Cognitive needs: No Hearing needs: No Vision needs: Yes Questionnaire Thrive Questionnaire Date Thrive assessed: 02/09/24 I am a: Patient What is your living situation today?: I have a steady place to live Within the past 12 months, did the food you bought not last and you didn't have the money to get more?: Never true Within the past 12 months, did you worry whether your food would run out before you got money to buy more?: Never true Do you have trouble paying for medicines?: No Do you have trouble getting transportation to medical appointments?: No Do you have trouble paying your heating and electricity bill?: No Do you have trouble taking care of your child, family member or friend?: No Do you have trouble with day-to-day activities such as bathing, preparing meals, shopping, managing finances, etc.?: No Are you currently unemployed and looking for a job?: No Are you interested in more education?: No Please select the resources that you would like help with: None Currently or been in a relationship where the following occur: No concerns reported THRIVE Score: 0 AUDIT C Alcohol Use Questionnaire (AUDIT-C) 1. How often do you have a drink containing alcohol?: Never 3. How often do you have six or more drinks on one occasion?: Never Total Score: 0 Score Reviewed/Action Taken: Yes TITI-7 AMB Questionnaire TITI-7 Date TITI - 7 assessed: 10/05/23 Source: Developed by Drs. Berto Acevedo, Maria Esther Li, Toni Degroot and colleagues, with an educational benigno from [employer]. Physical exam (Primary Care) Vital Signs: Last Vital Signs Pulse 70 02/09/24 09:35 BP 128/80 02/09/24 09:35 Pulse Ox 97 02/09/24 09:35 Oxygen Delivery Method Room Air 02/09/24 09:35 BMI result Body Mass Index 31.0 Tobacco/Smoking Status: Tobacco use Status Tobacco use date assessed 02/09/24 02/09/24 09:38 Patient Tobacco Use Status Never used Tobacco 02/09/24 09:38 e-Cigarette/Vaping Use Never Used 02/09/24 09:38 Thrive Assessment: Date of Thrive Assessment Date Thrive assessed 02/09/24 02/09/24 09:38 Currently or been in a relationship where the following occur: No concerns reported Coding Level of Care Code Est Pt Level 4 (71133) Diagnoses Controlled type 2 diabetes mellitus without complication, without long-term current use of insulin E11.9 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: without detention use 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 complication status: without complication Chronic GERD K21.9 Recurrent headache R51.9 Constipation by delayed colonic transit K59.01 Class 1 obesity due to excess calories with serious comorbidity and body mass index (BMI) of 33.0 to 33.9 in adult E66.09; Z68.33 Obesity classification: adult class 1 (BMI 30 - 34.9) Serious obesity comorbidity presence: with serious comorbidity Body mass index: BMI 33.0-33.9 Vitamin D deficiency E55.9 Edema R60.9 Assessment & Plan Assessment & Plan (1) Diabetes type 2, controlled: Code(s): E11.9 - Type 2 diabetes mellitus without complications Category: Medical Qualifiers: 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 detention insulin use: without detention use 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 complication status: without complication Qualified Code(s): E11.9 - Type 2 diabetes mellitus without complications (2) Chronic GERD: Code(s): K21.9 - Gastro-esophageal reflux disease without esophagitis Category: Medical (3) Recurrent headache: Code(s): R51.9 - Headache, unspecified Category: Medical (4) Constipation by delayed colonic transit: Code(s): K59.01 - Slow transit constipation Category: Medical (5) Obesity due to excess calories: Code(s): E66.09 - Other obesity due to excess calories Category: Medical Qualifiers: Obesity classification: adult class 1 (BMI 30 - 34.9) Serious obesity comorbidity presence: with serious comorbidity Body mass index: BMI 33.0-33.9 Qualified Code(s): E66.09 - Other obesity due to excess calories; Z68.33 - Body mass index [BMI] 33.0-33.9, adult (6) Vitamin D deficiency: Code(s): E55.9 - Vitamin D deficiency, unspecified Category: Medical (7) Edema: Code(s): R60.9 - Edema, unspecified Category: Medical Plan Assessment and Plan 58-year-old female with a history of hypertension, obesity, hyperlipidemia, headaches, and gastroesophageal reflux disease presenting for a follow-up visit. The patient reports improvement in back pain possibly related to weight loss. She continues to experience occasional headaches and recent upper respiratory infection but denies significant swelling. Her blood pressure is well- controlled. Laboratory results indicate elevated LDL cholesterol. 1. Upper Respiratory Infection Recently completed a course of azithromycin. Symptoms have resolved, and no further intervention is required at this time. 3. Obesity The patient has experienced weight loss, contributing to improved symptoms. Continued emphasis on diet and exercise is advised to further address obesity. 4. Hyperlipidemia LDL cholesterol levels have increased to 149 mg/dL. Discussed non-statin alternatives due to muscle cramping caused by atorvastatin. Initiation of Zetia was recommended, with a repeat lipid panel in three months. 5. Headaches Occasional headaches persist despite propranolol treatment. The patient should continue the current regimen and seek immediate care if severe headaches recur. Diagnostic results - Labs: - Complete Blood Count (CBC): Normal - Electrolytes: Normal - Kidney Function: Normal - Fasting Blood Sugar: 104 mg/dL - Hemoglobin A1c: 5.5% - Liver Enzymes: Normal - LDL Cholesterol: 149 mg/dL Problem List - Obesity - Hyperlipidemia - Headaches - Gastroesophageal Reflux Disease Medications - Lasix (Furosemide): As needed for edema; patient currently takes half a pill as needed. - Propranolol: For headache management. - Omeprazole: For gastroesophageal reflux disease. - Metformin 1g daily: Presumed for glucose control. Review of Systems - Cardiovascular: Denies significant swelling. - Neurological: Reports occasional headaches. - Respiratory: Reports recent upper respiratory infection. General: No fever no chills neurological: No headaches no dizziness ear nose throat: No sore throat no hearing difficulty no ear pain musculoskeletal: Usual aches and pains nothing new cardiovascular: No syncope, no chest pain, no palpitations gastrointestinal: No nausea vomiting or diarrhea endocrine: No polyuria polydipsia no heat intolerance genitourinary: No dysuria skin: No new complaints Physical Exam general: No acute distress HEENT: No acute findings neck: Supple respiratory system: Able to talk in full sentences, no audible wheeze, no stridor cardiovascular: S1-S2 gastrointestinal: No pain extremities: No swelling LABORER SALVAGE: Alert awake oriented x3 motor sensory intact skin: Normal turgor Patient Instructions - Continue current hypertension, gastroesophageal reflux disease, and headache management medications as prescribed. - Adopt dietary and exercise interventions to support continued weight loss. - Start Zetia and take one tablet daily as a substitute for atorvastatin for hyperlipidemia management. - Return for repeat lipid panel in three months while fasting. - Monitor for and report severe headaches promptly. - Follow general health maintenance and contact sooner if new or concerning symptoms develop. Orders: Orders Comprehensive [place]. Panel Fast 2 Months E11.9 - Type 2 diabetes mellitus without complications, E66.09 - Other obesity due to excess calories, K21.9 - Gastro-esophageal reflux disease without esophagitis, K59.01 - Slow transit constipation, R51.9 - Headache, unspecified, Z68.33 - Body mass index [BMI] 33.0-33.9, adult Lipid Panel 2 Months E11.9 - Type 2 diabetes mellitus without complications, E66.09 - Other obesity due to excess calories, K21.9 - Gastro-esophageal reflux disease without esophagitis, K59.01 - Slow transit constipation, R51.9 - Headache, unspecified, Z68.33 - Body mass index [BMI] 33.0-33.9, adult Hemoglobin A1c 2 Months E11.9 - Type 2 diabetes mellitus without complications, E66.09 - Other obesity due to excess calories, K21.9 - Gastro-esophageal reflux disease without esophagitis, K59.01 - Slow transit constipation, R51.9 - Headache, unspecified, Z68.33 - Body mass index [BMI] 33.0-33.9, adult Microalbumin, Random (w Creat) 2 Months E11.9 - Type 2 diabetes mellitus without complications, E66.09 - Other obesity due to excess calories, K21.9 - Gastro-esophageal reflux disease without esophagitis, K59.01 - Slow transit constipation, R51.9 - Headache, unspecified, Z68.33 - Body mass index [BMI] 33.0-33.9, adult Complete Blood Count Auto Diff 2 Months E11.9 - Type 2 diabetes mellitus without complications, E66.09 - Other obesity due to excess calories, K21.9 - Gastro-esophageal reflux disease without esophagitis, K59.01 - Slow transit constipation, R51.9 - Headache, unspecified, Z68.33 - Body mass index [BMI] 33.0-33.9, adult Medications: New ezetimibe (Zetia) 10 mg PO DAILY 90 tabs 0RF
[2024-02-09 09:35] VITALS: BP 128/80; PULSE 70; O2SAT 97; BMI 31.0
== END 2024-02-09 09:50 | disposition home or self-care (01) ==
PROVIDERS: PCP Internal Medicine; Visit Provider Internal Medicine
DX: E11.9 Type 2 diabetes mellitus without complications (principal); K21.9 Gastro-esophageal reflux disease without esophagitis; R51.9 Headache, unspecified; K59.01 Slow transit constipation; E66.09 Other obesity due to excess calories; Z68.33 Body mass index [BMI] 33.0-33.9, adult; E55.9 Vitamin D deficiency, unspecified; R60.9 Edema, unspecified

== ENCOUNTER 2024-05-04 08:56 | Outpatient (REF) | payer OTHER, SELFPAY ==
--- OUTSIDE RECORDS SUMMARY | 2024-05-04 09:59 | XMS_ITS | Encounter Summary ---
Author Organization [employer] [facility] Address [address] [place] [address] Care Team Providers Care Dog Handler Name Role Phone Brandie Villalba MD Primary Care Provider [phone] Encounter Details Date Type Department Care Team (Latest Contact Info) Description 02/15/[address] [facility] - Main Lab [address] [place] [id number] Jeannine Pitts MD [address] [address] Encounter for gynecological examination (general) (routine) without abnormal findings Social History Tobacco Use Types Packs/Day Years Used Date Smoking Tobacco: Never Assessed Comments Unknown Sex and Gender Information Value Date Recorded Sex Assigned at Not on file Legal Sex Female 11:57 PM EST Gender Identity Not on file Sexual Orientation Not on file documented as of this encounter Plan of Treatment Not on file documented as of this encounter Procedures Procedure Name Priority Date/Time Associated Diagnosis Comments PAP SMEAR Routine 02/14/2024 12:00 AM EST Encounter for gynecological examination (general) (routine) without abnormal findings documented in this encounter Results * Pap smear (02/14/2024 12:00 AM EST) Interpretation Negative for intraepithelial lesion or malignancy 02/21/2024 8:31 AM EST [facility] General Categorization Negative 02/21/2024 8:[address] [facility] Other Findings Atrophy 02/21/2024 8:31 AM [facility] Specimen Adequacy Satisfactory for evaluation 02/21/2024 8:31 AM [facility] Pap Methodology Liquid Based Pap Test 02/21/2024 8:31 AM [facility] Disclaimer The Pap test is a screening test which carries an inherent false negative rate. These test results should be correlated with the patient's clinical findings and history. This Pap test was processed using an automated screening system. Technical cytopathology services provided by [facility], at [address] [place] [address] (CLIA # [id number]/Leia Encinas MD, [employer].) 02/21/2024 8:31 AM [facility] Console Pap Interpretation Reported 02/21/2024 8:31 AM [facility] Brushing/Spatula Cervix uteri structure / Unknown 02/14/2024 02/15/2024 8:16 AM EST us Jeannine Pitts MD LAB CYTOLOGY ORDERABLES Final Result [facility] [address] [place] [address], documented in this encounter Visit Diagnoses Diagnosis Encounter for gynecological examination (general) (routine) without abnormal findings documented in this encounter Care Teams Dog Handler Relationship Specialty Start Date End Date Brandie Villalba MD [address] [facility] [address] PCP - General Internal Medicine 03/09/24 documented as of this encounter
--- OUTSIDE RECORDS SUMMARY | 2024-05-04 09:59 | XMS_ITS | Clinical Summary ---
Author Organization [address] [facility] Address [address] [place] [address] Phone Care Team Providers Care Tax Auditor Name Role Phone Brandie Villalba MD Primary Care Provider [phone] Encounters Date Type Department Care Team Description 03/09/2024 7:15 AM EST - 03/09/2024 11:59 PM EST Hospital [facility] [address] [place] [phone] Encounter for screening mammogram for malignant neoplasm of breast Discharge Disposition: Home or Self Care 02/15/2024 Lab Requisition [facility] - Main Lab [address] [facility] [place] [phone] Jeannine Pitts MD Encounter for gynecological examination (general) (routine) without abnormal findings from Last 3 Months Social History Tobacco Use Types Packs/Day Years Used Date Smoking Tobacco: Never Assessed Comments No Sex and Gender Information Value Date Recorded Sex Assigned at Not on file Legal Sex Female 11:57 PM EST Gender Identity Not on file Sexual Orientation Not on file Obstetrics History Para Term AB IAB SAB Ectopic Multiple Livin g Live Births 2 Last Filed Vital Signs Vital Sign Reading Time Taken Comments Blood Pressure - - Pulse - - Temperature - - Respiratory Rate - - Oxygen Saturation - - Inhaled Oxygen Concentration - - Weight 75.3 kg (166 lb) 03/09/2024 7:48 AM EST Height 160 cm (5' 3 ) 03/09/2024 7:48 AM EST Body Mass Index 29.41 03/09/2024 7:48 AM EST Plan of Treatment Health Maintenance Due Date Last Done Comments DTaP,Tdap,and Td Vaccines (1 - Tdap) 1985 Hepatitis B Vaccines (1 of 3 - 19+ 3-dose series) 1985 Pneumococcal Vaccine: 50+ Years (1 of 1 - PCV) 2016 Zoster Vaccines (1 of 2) 2016 Colorectal Cancer Screening: Colonoscopy 01/25/2022 Depression Screening 01/25/2022 HIV Screening 01/25/2022 Hepatitis C Screening 01/25/2022 Social Influencers of Health Screening 01/25/2022 COVID-19 Vaccine ( season) 2023 01/19/2023, 10/01/2021, 01/28/2021, Additional history exists Breast Cancer Screening 03/09/2026 03/09/19, 06/04/2022, 05/23/2021, Additional history exists Cervical Cancer Screening: Pap Smear 02/13/2027 02/14/2024 Influenza Vaccine Completed 11/30/2023, , 01/21/2022, Additional history exists HIB Vaccines Aged Out No longer eligi ble based on patient's age to complete this topic HPV Vaccines Aged Out No longer eligi ble based on patient's age to complete this topic Hepatitis A Vaccines Aged Out No long er eligible based on patient's age to complete this topic IPV Vaccines Aged Out No longer eligi ble based on patient's age to complete this topic MMR Vaccines Aged Out No longer eligi ble based on patient's age to complete this topic Meningococcal ACWY Vaccine Aged Out N o longer eligible based on patient's age to complete this topic Meningococcal B Vacine Aged Out No lo nger eligible based on patient's age to complete this topic Pneumococcal Vaccine: Pediatrics (0 to 5 Years) and At-Risk Patients (6 to 64 Years) Aged Out No longer eligible based on patient's age to complete this topic RSV Immunization Patients Under 20 months Aged Out No longer eligible based on patient's age to complete this topic Varicella Vaccines Aged Out No longer eligible based on patient's age to complete this topic Procedures Procedure Name Priority Date/Time Associated Diagnosis Comments MG MAMMO DIGITAL SCREENING W PAWAN BILAT Routine 03/09/2024 7:56 AM EST Encounter for screening mammogram for malignant neoplasm of breast PAP SMEAR Routine 02/14/2024 12:00 AM EST Encounter for gynecological examination (general) (routine) without abnormal findings from Last 3 Months Results * MG Mammo Digital Screening w Pawan bilat (03/09/2024 7:56 AM EST) Anatomical Region Laterality Modality Breast Bilateral Mammography 03/09/2024 9:16 AM EST Impressions 03/09/2024 9:26 AM EST No mammographic evidence of malignancy. ?? No suspicious interval change. A negative mammogram in the presence of a clinically suspicious palpable abnormality does not preclude the possibility of malignancy or alter the indications for biopsy. ASSESSMENT: ?? BI-RADS 1: NEGATIVE RECOMMENDATION(S): 1: Routine screening mammogram BILATERAL in 1 year. -------- FINAL REPORT -------- Dictated By: Landry Triana Dictated Date: 03/09/2024 09:16 ET Assigned Physician: Landry Triana Reviewed and Electronically Signed By: Landry Triana Signed Date: 03/09/2024 09:26 ET Workstation ID: [id number] Transcribed By: Self Edit Transcribed Date: 03/09/2024 09:19 ET Narrative 03/09/2024 9:26 AM EST EXAM: ??SCREENING MAMMOGRAPHY, BILATERAL HISTORY: ??SCREENING. ??Technologist indicates bruise left breast 12 o'clock position COMPARISON: ??06/01/2022, 05/23/2021, 12/01/2019 TECHNIQUE: Synthesized CC and MLO projections of each breast. ??Tomosynthesis of each breast in the CC and MLO projections. ADDITIONAL IMAGING: None Computer-aided detection was employed with the iCAD ??profound AI 3-D. TISSUE DENSITY: There are scattered areas of fibroglandular density. (BI-RADS category B) FINDINGS: RIGHT BREAST: No suspicious mass. No suspicious calcification. No distortion. ?? No additional suspicious right breast findings LEFT BREAST: No suspicious mass. No suspicious calcification. No distortion. ?? No additional suspicious left breast findings Procedure Note Landry Triana MD - 03/09/2024 EXAM: SCREENING MAMMOGRAPHY, BILATERAL HISTORY: SCREENING. Technologist indicates bruise left breast 12 o'clockposition COMPARISON: 06/01/2022, 05/23/2021, 12/01/2019 TECHNIQUE: Synthesized CC and MLO projections of each breast.Tomosynthesis of each breast in the CC and MLO projections. ADDITIONAL IMAGING: None Computer-aided detection was employed with the iCAD profound AI 3-D. TISSUE DENSITY: There are scattered areas of fibroglandular density.(BI-RADS category B) FINDINGS: RIGHT BREAST: No suspicious mass. No suspicious calcification. No distortion. Noadditional suspicious right breast findings LEFT BREAST: No suspicious mass. No suspicious calcification. No distortion. Noadditional suspicious left breast findings IMPRESSION: No mammographic evidence of malignancy. No suspicious interval change. A negative mammogram in the presence of a clinically suspicious palpableabnormality does not preclude the possibility of malignancy or alter theindications for biopsy. ASSESSMENT: BI-RADS 1: NEGATIVE RECOMMENDATION(S): 1: Routine screening mammogram BILATERAL in 1 year. -------- FINAL REPORT -------- Dictated By: Landry Triana Dictated Date: 03/09/2024 09:16 ET Assigned Physician: Landry Triana Reviewed and Electronically Signed By: Landry Triana Signed Date: 03/09/2024 09:26 ET Workstation ID: [id number] Transcribed By: Self Edit Transcribed Date: 03/09/2024 09:19 ET us Jeannine Pitts MD IMG BI PROCEDURES Final Result * Pap smear (02/14/2024 12:00 AM EST) Interpretation Negative for intraepithelial lesion or malignancy 02/21/2024 8:31 AM EST [facility] General Categorization Negative 02/21/2024 8:[address] [facility] Other Findings Atrophy 02/21/2024 8:31 AM EST [facility] Specimen Adequacy Satisfactory for evaluation 02/21/2024 8:31 AM EST [facility] Pap Methodology Liquid Based Pap Test 02/21/2024 8:31 AM EST [facility] Disclaimer The Pap test is a screening test which carries an inherent false negative rate. These test results should be correlated with the patient's clinical findings and history. This Pap test was processed using an automated screening system. Technical cytopathology services provided by [facility], at [address] [place] [address] (CLIA # [id number]/Leia Encinas MD, Colon Therapist.) 02/21/2024 8:31 AM EST [facility] Console Pap Interpretation Reported 02/21/2024 8:31 AM [facility] Brushing/Spatula Cervix uteri structure / Unknown 02/14/2024 02/15/2024 8:16 AM EST Jeannine Pitts MD LAB CYTOLOGY ORDERABLES Final Result [facility] [address] [place] [address], from Last [address] [address] [facility] Care Teams Tax Auditor Relationship Specialty Start Date End Date Brandie Villalba MD [address] [place] [address] HUYEN Demspey [phone] PCP - General Internal Medicine 03/09/24
[2024-05-04 10:09] LABS: MANUAL DIFF FLAG NO
[2024-05-04 10:13] LABS: Basophils Percent Auto 0.5 % (0-2); Eosinophils Absolute Auto 0.1 X10*3/uL (0.0-0.4); Eosinophils Percent Auto 1.6 % (0-4); Hematocrit 36.9 % (37.0-47.0); Hemoglobin 12.3 g/dl (12.0-16.0); Imm Gran Abs Auto 0.01 X10*3/uL (0.00-0.03); Imm Gran Pct Auto 0.2 % (0.0-0.4); Lymphocytes Absolute Auto 1.3 X10*3/uL (1.2-4.9); Lymphocytes Percent Auto 28.7 % (20-40); Mean Corpuscular HGB Conc 33.3 g/dl (31.0-35.0); Mean Corpuscular Hemoglobin 27.5 pg (27.0-33.0); Mean Corpuscular Volume 82.6 fL (80.0-98.0); Mean Platelet Volume 11.7 fL (9.4-12.3); Monocytes Absolute Auto 0.3 X10*3/uL (0.1-1.2); Monocytes Percent Auto 7.2 % (2-11); Neutrophils Absolute Auto 2.7 x10*3/uL (2.0-8.3); Neutrophils Percent Auto 61.8 % (45-73); Platelet Count 209 X10*3/uL (160-400); Red Blood Count 4.47 X10*6/uL (4.20-5.50); Red Cell Distribution Width 13.1 % (11.0-16.0); White Blood Count 4.4 X10*3/uL (4.8-10.8)
[2024-05-04 10:30] LABS: Alanine Aminotransferase 20 U/L (0-31); Albumin Level 4.1 g/dL (3.5-5.0); Alkaline Phosphatase 63 U/L (39-117); Anion Gap 10 (12-20); Aspartate Amino Transferase 18 U/L (5-31); Bilirubin Total 0.4 mg/dL (0.0-1.0); Blood Urea Nitrogen 12 mg/dL (9-16); Calcium 9.3 mg/dL (8.4-10.2); Carbon Dioxide 27 mmol/L (22-29); Chloride 111 mmol/L (96-108); Cholesterol 202 mg/dL (<200); Estimated Glomerular Filt Rate > 60; Glucose Fasting 101 mg/dL (60-99); HDL Cholesterol 45 mg/dL (>40); LDL Cholesterol Calculated 129 mg/dL (<100); Potassium 4.1 mmol/L (3.3-5.1); Sodium 144 mmol/L (135-145); Total Protein 7.2 g/dL (6.5-8.0); Triglycerides 143 mg/dL (<150)
[2024-05-04 10:41] LABS: Creatinine Urine 297.47 mg/dL; Microalbum/Creatinine Ratio Ur 8.4 ug/mg cr (<30)
[2024-05-04 10:50] LABS: Estimated Average Glucose 108 mg/dL; Hemoglobin A1c % 5.4 % (<6.0); Total Hemoglobin (HGBA1C) 3283.3607 umol/L
== END 2024-05-04 08:57 | disposition home or self-care (01) ==
LOC: HO.HMGCLDS 08:56
PROVIDERS: PCP Internal Medicine; Visit Provider Internal Medicine
DX: R51.9 Headache, unspecified (principal); K59.01 Slow transit constipation; K21.9 Gastro-esophageal reflux disease without esophagitis; E11.9 Type 2 diabetes mellitus without complications; E66.09 Other obesity due to excess calories; Z68.33 Body mass index [BMI] 33.0-33.9, adult
CPT/HCPCS: 36415; 80053; 80061; 82043; 82570; 83036; 85025

== ENCOUNTER 2024-05-10 09:15 | Outpatient (AMB) | payer OTHER, SELFPAY ==
--- NOTE | 2024-05-10 09:27 | A.OFFPC_ITS ---
Vital Signs 05/10/24 09:28 Height 5 ft 3 in Weight 166 lb 4 oz BMI 29.4 BP 110/64 Blood Pressure Location Rt brachial Position Sitting Pulse 62 Pulse Source Pulse Oximeter Pulse Oximetry (%) 96 Oxygen Delivery Method Room Air Intake Visit Reasons: 3 months f/up-ANNUAL PE Allergies No Known Allergies [No Known Allergies*] Allergy (Verified 05/10/24 09:30) Medication List - Last Reconciled 05/10/24 by Brandie Villalba MD atorvastatin 10 mg PO QAM blood sugar diagnostic (FreeStyle Lite Strips) Use to check blood sugar twice daily: fasting and random blood-glucose meter (FreeStyle Lite Meter kit) Use to check blood sugar twice daily: fasting and random ezetimibe (Zetia) 10 mg PO DAILY furosemide 20 mg PO QAM lancets (Accu-Chek Softclix Lancets) Use to check blood sugar twice daily: fasting and random metformin 1,000 mg PO DAILY omeprazole 20 mg PO QAM propranolol 20 mg PO QAM Tobacco use date assessed: 05/10/24 Dental Screening Dental Screen Date: 02/09/24 HPI 3 months f/up-ANNUAL PE HPI Details Physical exam appointment - The patient is a 58-year-old female pr esenting with a request for chronic condition management follow-up and assessment of a toenail injury. Left big toe ingrown toenail that patient tried to treat herself and has gotten infected - diabetes is stable, hemoglobin A1c is well-controlled she is on metformin 500 mg daily . - Hyperlipidemia is managed with atorvas tatin, with LDL cholesterol improved from 149 mg/dL to 129 mg/dL. - GERD symptoms persist and are managed with omeprazole, with no recent exacerbations reported. - Migraines are managed with propranolol , and the condition remains under control. - BMI elevated at 29.4 patient is camila carlos on zepbound she is buying it privately through weight loss program and is on 15 mg dose She is requesting if I can send the script to see where insurance will cover it, she has done very well on this medication and has lost a lot of weight since started Health Maintenance - The most recent mammogram conducted in February was reported as normal. - Pap smear and recent OB-BREAKING MACHINE OPERATOR visits con firm no new concerns. - Patient adheres to recommended gynecol ogical checks, with Dr. Ayala identified as the provider. - Colonoscopy history is from [facility], 2022 Dr. Pemberton - Weight management noted with a signifi cant reduction from 217 lbs to 161 lbs through the use of Zepbound injections. - Discussions highlighted the potential cessation of Lasix given the absence of peripheral edema. - Emphasized importance of follow-up wit h routine eye and foot exams given the diabetes status. - Exercise encouragement with plans to i ncrease with improving weather. 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 - No service or occupational is sues mentioned. Diagnostic results - Labs: - Hemoglobin: Normal, 12.3 g/dL - Fasting glucose: 101 mg/dL, indicating prediabetic status - LDL cholesterol: Improved from 149 mg/ dL to 129 mg/dL - Electrolytes and kidney function: With in normal limits Patient Instructions - Continue prescribed medications includ ing atorvastatin and metformin. - Cease taking Lasix; monitor for any si gns of swelling. - Follow up with an annual foot exam due to diabetic status. - Schedule a routine eye exam. - Continue weight management strategies, including trisipidide injections. - Recommended lifestyle modification to include increased exercise as weather improves. - Review instructions regarding potentia l follow-up colonoscopy procedure planning. Review of Systems - General: No fever no chills - Neurological: No headaches no dizzin ess - Ear nose throat: No sore throat no hearing difficulty no ear pain - Cardiovascular: No syncope, no chest pain, no palpitations - Gastrointestinal: No nausea vomiting or diarrhea - Endocrine: No polyuria polydipsia no heat intolerance - Genitourinary: No dysuria - Skin: No new complaints Physical Exam General: Cooperative, healthy appearing, comfortable, no acute distress Orientation: Patient oriented x3 Limitations: None Head: Normal to inspection Ears: Within normal limit visually Nose: Normal external nose present Face and sinus: Normal facial exam Eyes: Appearance normal, extraocular movement intact pupils reactive Neck: Normal visual inspection and supple Respiratory: Normal respiratory effort and able to speak in complete sentences. Clear to auscultation, no stridor Cardiovascular: S1 and S2 Breast exam through OBGYN GI: Normal to inspection. Soft to palpation and nontender Skin: Turgor normal, no acute findings, no skin problems noted Neuro: Patient oriented x3, motor sensory intact, balance intact, tandem pass Extremities: Normal to inspection, ingrown toenail noted left big toe with inf lammation PFSH Medical History Vitamin D deficiency Polyp of colon Cough Edema Hyperglycemia Abnormal colonoscopy Annual physical exam Normal Pap smear Mammogram normal Hx of subarachnoid hemorrhage GERD (gastroesophageal reflux disease) Hyperlipidemia Hypertension Surgical History History of esophagogastroduodenoscopy (EGD) H/O colonoscopy History of section Hx of cholecystectomy Family History Father HTN (hypertension) CVD (cardiovascular disease) AAA (abdominal aortic aneurysm) Unknown family medical history Mother Unknown family medical history 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 Brother No problems noted. Sister No problems noted. Son No problems noted. Daughter No problems noted. 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 1. Little interest or pleasure in doing things: not at all 2. Feeling down, depressed, or hopeless: not at all 3. Trouble falling or staying asleep, or sleeping too much: not at all 4. Feeling tired or having little energy: not at all 5. Poor appetite or overeating: not at all 6. Feeling bad about yourself - or that you are a failure or have let yourself or your family down: not at all 7. Trouble concentrating on things, such as reading the newspaper or watching television: not at all 8. Moving or speaking so slowly that other people could have noticed. Or the opposite - being so fidgety or restless that you have been moving around a lot more than usual: not at all 9. Thoughts that you would be better off or of hurting yourself in some way: not at all Total score: 0 Depression Screening Interpretation: Negative Depression Screening Done: Yes 08562 - PHQ-9 Billing: Yes Source: Developed by Drs. Berto Acevedo, Maria Esther Li, Toni Degroot and colleagues, with an educational benigno from [employer]. Thrive Questionnaire Date Thrive assessed: 02/09/24 I am a: Patient What is your living situation today?: I have a steady place to live Within the past 12 months, did the food you bought not last and you didn't have the money to get more?: Never true Within the past 12 months, did you worry whether your food would run out before you got money to buy more?: Never true Do you have trouble paying for medicines?: No Do you have trouble getting transportation to medical appointments?: No Do you have trouble paying your heating and electricity bill?: No Do you have trouble taking care of your child, family member or friend?: No Do you have trouble with day-to-day activities such as bathing, preparing meals, shopping, managing finances, etc.?: No Are you currently unemployed and looking for a job?: No Are you interested in more education?: No Please select the resources that you would like help with: None Currently or been in a relationship where the following occur: No concerns reported THRIVE Score: 0 AUDIT C Alcohol Use Questionnaire (AUDIT-C) 1. How often do you have a drink containing alcohol?: Never Total Score: 0 TITI-7 AMB Questionnaire TITI-7 Date TITI - 7 assessed: 10/05/23 Feeling nervous, anxious, or on edge: 0 = Not at all Not being able to stop or control worryin = Not at all Worrying too much about different things: 0 = Not at all Trouble relaxin = Not at all Being so restless that it is hard to sit still: 0 = Not at all Becoming easily annoyed or irritable: 0 = Not at all Feeling afraid as if something awful might happen: 0 = Not at all Total TITI-7 score (0-4 normal; 5-9 mild; 10-14 moderate; 15-21 severe): 0 Source: Developed by Drs. Berto Acevedo, Maria Esther Li, Toni Degroot and colleagues, with an educational benigno from [employer]. Physical exam (Primary Care) Vital Signs: Last Vital Signs Pulse 62 05/10/24 09:28 BP 110/64 05/10/24 09:28 Pulse Ox 96 05/10/24 09:28 Oxygen Delivery Method Room Air 05/10/24 09:28 BMI result Body Mass Index 29.4 Tobacco/Smoking Status: Tobacco use Status Tobacco use date assessed 05/10/24 05/10/24 09:30 Patient Tobacco Use Status Never used Tobacco 05/10/24 09:30 e-Cigarette/Vaping Use Never Used 05/10/24 09:30 PHQ-9: PHQ-9 Score PHQ-9: Total score 0 05/10/24 09:48 Depression Screening Interpretation: Negative Thrive Assessment: Date of Thrive Assessment Date Thrive assessed 02/09/24 05/10/24 09:30 Currently or been in a relationship where the following occur: No concerns reported Coding Level of Care Code Est Pt Level 3 (43460) Est Pt Prev Care 40-64y(98562) Diagnoses Encounter for general adult medical examination with abnormal findings Z00.01 Ingrown toenail of left foot L60.0 Mixed hyperlipidemia E78.2 Hyperlipidemia type: mixed hyperlipidemia Spondylosis of lumbar region without myelopathy or radiculopathy M47.816 Spinal osteoarthritis complication: without myelopathy or radiculopathy Class 1 obesity due to excess calories with serious comorbidity and body mass index (BMI) of 33.0 to 33.9 in adult E66.09; Z68.33 Body mass index: BMI 33.0-33.9 Obesity classification: adult class 1 (BMI 30 - 34.9) Serious obesity comorbidity presence: with serious comorbidity Controlled type 2 diabetes mellitus without complication, without long-term current use of insulin E11.9 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 complication status: without complication 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 terminologist insulin use: without senior living use Chronic GERD K21.9 Recurrent headache R51.9 Vitamin D deficiency E55.9 Additional Codes PHQ-9 - 02958 - PHQ-9 Billing: Yes ([id number]) Assessment & Plan Assessment & Plan (1) Encounter for general adult medical examination with abnormal findings: Code(s): Z00.01 - Encounter for general adult medical examination with abnormal findings Category: Medical (2) Ingrown toenail of left foot: Code(s): L60.0 - Ingrowing nail Category: Medical (3) Hyperlipidemia: Code(s): E78.5 - Hyperlipidemia, unspecified Category: Medical Qualifiers: Hyperlipidemia type: mixed hyperlipidemia Qualified Code(s): E78.2 - Mixed hyperlipidemia (4) Osteoarthritis of lumbar spine: Code(s): M47.816 - Spondylosis without myelopathy or radiculopathy, lumbar region Category: Medical Qualifiers: Spinal osteoarthritis complication: without myelopathy or radiculopathy Qualified Code(s): M47.816 - Spondylosis without myelopathy or radiculopathy, lumbar region (5) Obesity due to excess calories: Code(s): E66.09 - Other obesity due to excess calories Category: Medical Qualifiers: Body mass index: BMI 33.0-33.9 Obesity classification: adult class 1 (BMI 30 - 34.9) Serious obesity comorbidity presence: with serious comorbidity Qualified Code(s): E66.09 - Other obesity due to excess calories; Z68.33 - Body mass index [BMI] 33.0-33.9, adult (6) Diabetes type 2, controlled: Code(s): E11.9 - Type 2 diabetes mellitus without complications Category: Medical Qualifiers: 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 complication status: without complication 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 senior living insulin use: without senior living use Qualified Code(s): E11.9 - Type 2 diabetes mellitus without complications (7) Chronic GERD: Code(s): K21.9 - Gastro-esophageal reflux disease without esophagitis Category: Medical (8) Recurrent headache: Code(s): R51.9 - Headache, unspecified Category: Medical (9) Vitamin D deficiency: Code(s): E55.9 - Vitamin D deficiency, unspecified Category: Medical Plan Physical exam appointment - The patient is a 58-year-old female presenting with a request for chronic condition management follow-up and assessment of a toenail injury. Left big toe ingrown toenail that patient tried to treat herself and has gotten infected - diabetes is stable, hemoglobin A1c is well-controlled she is on metformin 500 mg daily . - Hyperlipidemia is managed with atorvastatin, with LDL cholesterol improved from 149 mg/dL to 129 mg/dL. - GERD symptoms persist and are managed with omeprazole, with no recent exacerbations reported. - Migraines are managed with propranolol, and the condition remains under control. - BMI elevated at 29.4 patient is currently on zepbound she is buying it privately through weight loss program and is on 15 mg dose She is requesting if I can send the script to see where insurance will cover it, she has done very well on this medication and has lost a lot of weight since started Health Maintenance - The most recent mammogram conducted in February was reported as normal. - Pap smear and recent OB-BREAKING MACHINE OPERATOR visits confirm no new concerns. - Patient adheres to recommended gynecological checks, with Dr. Lucy cardenas as the provider. - Colonoscopy history is from [facility], [address]22 Dr. Pemberton - Weight management noted with a significant reduction from 217 lbs to 161 lbs through the use of Zepbound injections. - Discussions highlighted the potential cessation of Lasix given the absence of peripheral edema. - Emphasized importance of follow-up with routine eye and foot exams given the diabetes status. - Exercise encouragement with plans to increase with improving weather. 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 - No service or occupational issues mentioned. Diagnostic results - Labs: - Hemoglobin: Normal, 12.3 g/dL - Fasting glucose: 101 mg/dL, indicating prediabetic status - LDL cholesterol: Improved from 149 mg/dL to 129 mg/dL - Electrolytes and kidney function: Within normal limits Patient Instructions - Continue prescribed medications including atorvastatin and metformin. - Cease taking Lasix; monitor for any signs of swelling. - Follow up with an annual foot exam due to diabetic status. - Schedule a routine eye exam. - Continue weight management strategies, including trisipidide injections. - Recommended lifestyle modification to include increased exercise as weather improves. - Review instructions regarding potential follow-up colonoscopy procedure planning. Medications: New amoxicillin-pot clavulanate 875-125 mg 1 tab PO BID 7 days 14 tabs 0RF tirzepatide (weight loss) for 4 weeks 15 mg (0.5 mL) subcut QWEEK 2 mL 0RF E11.9 - Type 2 diabetes ngoc litus without complications, E66.09 - Other obesity due to excess calories, E78.2 - Mixed hyperlipidemia, M47.816 - Spondylosis without myelopathy or radiculopathy, lumbar region, Z68.33 - Body mass index [BMI] 33.0-33.9, adult Changed From metformin 1,000 mg PO DAILY 90 tabs 0RF To metformin 500 mg PO DAILY 90 tabs 0RF Discontinued furosemide Discontinued Reason: Doctor's Order 20 mg PO QAM 90 tabs 0RF
[2024-05-10 09:28] VITALS: BP 110/64; PULSE 62; O2SAT 96; BMI 29.4
--- OUTSIDE RECORDS SUMMARY | 2024-05-10 10:12 | XMS_ITS | Encounter Summary ---
Author Organization [employer] Address [address] [place] [address] Care Team Providers Care Arborist Climber Name Role Phone Brandie Villalba MD Primary Care Provider [phone] Encounter Details Date Type Department Care Team (Latest Contact Info) Description 02/15/2024 Lab Requisition [facility] - Main Lab [address] [place] [phone] Jeannine Pitts MD [address] [address] Encounter for gynecological examination (general) [...] lesion or malignancy 02/21/2024 8:31 AM EST [facility] General Categorization Negative 02/21/2024 8:31 AM EST [facility]) [facility] Other Findings Atrophy 02/21/2024 8:31 AM [facility] Specimen Adequacy Satisfactory for evaluation 02/21/2024 8:31 AM [facility] Pap Methodology Liquid Based Pap Test 02/21/2024 8:31 AM [facility] Disclaimer The Pap test is a screening test which carries an inherent false negative rate. These test results should be correlated with the patient's clinical findings and history. This Pap test was processed using an automated screening system. Technical cytopathology services provided by [facility], at [address] [place] [address] (CLIA # [id number]/Leia Encinas MD, Manufacturing Lab Technician.) 02/21/2024 8:31 AM [facility] Console Pap Interpretation Reported 02/21/2024 8:31 AM [facility] Brushing/Spatula Cervix uteri structure / Unknown 02/14/2024 02/15/2024 8:16 AM EST us Jeannine Pitts MD LAB CYTOLOGY ORDERABLES Final Result [facility] [address] [place] [address], documented in this encounter Visit Diagnoses Diagnosis Encounter for gynecological examination (general) (routine) without abnormal findings documented in this encounter Care Teams Arborist Climber Relationship Specialty Start Date End Date Brandie Villalba MD [address] [facility] [place] [address] PCP - General Internal Medicine 03/09/24 documented as of this encounter
--- OUTSIDE RECORDS SUMMARY | 2024-05-10 10:12 | XMS_ITS | Clinical Summary ---
Author Organization [address] [facility] Address [address] [place] [address] Phone Care Team Providers Care Outpatient Phlebotomist Name Role Phone Brandie Villalba MD Primary Care Provider [phone] Encounters Date Type Department Care Team Description 03/09/2024 7:15 AM EST - 03/09/2024 11:59 PM EST Hospital En[facility] [address] [place] [phone] Encounter for screening mammogram for malignant neoplasm of breast Discharge Disposition: Home or Self Care 02/15/2024 Lab Requisition [facility] - Main Lab [address] [facility] [employer] [place] [phone] Jeannine Pitts MD Encounter for gynecological examination [...] Signed Date: 03/09/2024 09:26 ET Workstation ID: [id number] Transcribed By: Self Edit Transcribed Date: 03/09/2024 [...] Signed Date: 03/09/2024 09:26 ET Workstation ID: [id number] Transcribed By: Self Edit Transcribed Date: 03/09/2024 09:19 ET us Jeannine Pitts MD IMG BI PROCEDURES Final Result * Pap smear (02/14/2024 12:00 AM EST) Interpretation Negative for intraepithelial lesion or malignancy 02/21/2024 8:[address] [facility] General Categorization Negative 02/21/2024 8:31 AM EST [facility] Other Findings Atrophy 02/21/2024 8:[address] [facility] Specimen Adequacy Satisfactory for evaluation 02/21/2024 8:[address] [facility] Pap Methodology Liquid Based Pap Test 02/21/2024 8:31 AM EST [facility] Disclaimer The Pap test is a screening test which carries an inherent false negative rate. These test results should be correlated with the patient's clinical findings and history. This Pap test was processed using an automated screening system. Technical cytopathology services provided by [facility], at [address] [place] [address] (CLIA # [id number]/Leia Encinas MD, Plush Finisher.) 02/21/2024 8:31 AM EST [facility] Console Pap Interpretation Reported 02/21/2024 8:31 AM [facility]) [facility] Brushing/Spatula Cervix uteri structure / Unknown 02/14/2024 02/15/2024 8:16 AM EST Jeannine Pitts MD LAB CYTOLOGY ORDERABLES Final Result [facility] [address] [place] [address], from Last [address] [place] [address] [facility] Care Teams Outpatient Phlebotomist Relationship Specialty Start Date End Date Brandie Villalba MD [address] [place] [address] [place]psey [phone] PCP - General Internal Medicine 03/09/24
== END 2024-05-10 09:50 | disposition home or self-care (01) ==
LOC: HO.HMCC 09:15
PROVIDERS: PCP Internal Medicine; Visit Provider Internal Medicine
DX: Z00.00 Encounter for general adult medical examination without abnormal findings (principal); E11.69 Type 2 diabetes mellitus with other specified complication; L60.0 Ingrowing nail; E66.09 Other obesity due to excess calories; Z68.33 Body mass index [BMI] 33.0-33.9, adult; E78.2 Mixed hyperlipidemia; M47.816 Spondylosis without myelopathy or radiculopathy, lumbar region; K21.9 Gastro-esophageal reflux disease without esophagitis; R51.9 Headache, unspecified; E55.9 Vitamin D deficiency, unspecified

== ENCOUNTER → 2024-05-10 09:15 | Outpatient (BNVA) | payer OTHER, SELFPAY | PROVIDERS: PCP Internal Medicine; Visit Provider Internal Medicine | DX: Z00.01 Encounter for general adult medical examination with abnormal findings (principal); L60.0 Ingrowing nail; E78.2 Mixed hyperlipidemia; M47.816 Spondylosis without myelopathy or radiculopathy, lumbar region; E66.09 Other obesity due to excess calories; Z68.33 Body mass index [BMI] 33.0-33.9, adult; E11.9 Type 2 diabetes mellitus without complications; K21.9 Gastro-esophageal reflux disease without esophagitis; R51.9 Headache, unspecified; E55.9 Vitamin D deficiency, unspecified; Z79.84 Long term (current) use of oral hypoglycemic drugs; Z79.899 Other long term (current) drug therapy | CPT/HCPCS: 96127 ==

== ENCOUNTER 2024-08-02 08:36 | Outpatient (REF) | payer OTHER, SELFPAY ==
--- OUTSIDE RECORDS SUMMARY | 2024-08-02 08:53 | XMS_ITS | Clinical Summary ---
Author Organization [address] Address [address] [place] [phone] Phone Care Team Providers Care Meat Carrier Name Role Phone Brandie Villalba MD Primary Care Provider [phone] Social History Tobacco Use Types Packs/Day Years [...] Additional history exists Breast Cancer Screening 03/09/2026 03/09/19 26, 06/04/2022, 05/23/2021, Additional history exists Cervical Cancer [...] age to complete this topic Meningococcal B Vaccine Aged Out No l onger eligible based on patient's age to complete [...] without abnormal findings from Last 3 Months or Most Recently Relevant to Health Maintenance Results * MG Mammo Digital Screening w [...] Signed Date: 03/09/2024 09:26 ET Workstation ID: [id number] Transcribed By: Self Edit Transcribed Date: 03/09/2024 [...] Signed Date: 03/09/2024 09:26 ET Workstation ID: [id number] Transcribed By: Self Edit Transcribed Date: 03/09/2024 09:19 ET us Jeannine Pitts MD IMG BI PROCEDURES Final Result * Pap smear (02/14/2024 12:00 AM EST) Interpretation Negative for intraepithelial lesion or malignancy 02/21/2024 8:31 AM [facility] General Categorization Negative 02/21/2024 8:31 AM [facility] Other Findings Atrophy 02/21/2024 8:31 AM [facility] Specimen Adequacy Satisfactory for evaluation 02/21/2024 8:31 AM [facility] Pap Methodology Liquid Based Pap Test 02/21/2024 8:31 AM [facility] Disclaimer The Pap test is a screening test which carries an inherent false negative rate. These test results should be correlated with the patient's clinical findings and history. This Pap test was processed using an automated screening system. Technical cytopathology services provided by [facility], at [address] [place] [address], [place] [address] (CLIA # [id number]/Leia Encinas MD, Accountant Clerk.) 02/21/2024 8:31 AM [facility] Console Pap Interpretation Reported 02/21/2024 8:31 AM EST [facility] Brushing/Spatula Cervix uteri structure / Unknown 02/14/2024 02/15/2024 8:16 AM EST us Jeannine Pitts MD LAB CYTOLOGY ORDERABLES Final Result [facility] [address] [place] [address], from Last 3 Months or Most Recently Relevant to Health Maintenance Insurance [facility] Care Teams Meat Carrier Relationship Specialty Start Date End Date Brandie Villalba MD [address] [place] [address] [place] [phone] PCP - General Internal Medicine 03/09/24
[2024-08-02 10:32] LABS: MANUAL DIFF FLAG NO
[2024-08-02 10:43] LABS: Basophils Percent Auto 0.4 % (0-2); Eosinophils Absolute Auto 0.1 X10*3/uL (0.0-0.4); Hematocrit 36.9 % (37.0-47.0); Hemoglobin 12.5 g/dl (12.0-16.0); Imm Gran Abs Auto 0.02 X10*3/uL (0.00-0.03); Imm Gran Pct Auto 0.4 % (0.0-0.4); Lymphocytes Absolute Auto 1.5 X10*3/uL (1.2-4.9); Lymphocytes Percent Auto 30.2 % (20-40); Mean Corpuscular HGB Conc 33.9 g/dl (31.0-35.0); Mean Corpuscular Hemoglobin 28.1 pg (27.0-33.0); Mean Corpuscular Volume 82.9 fL (80.0-98.0); Mean Platelet Volume 11.6 fL (9.4-12.3); Monocytes Absolute Auto 0.4 X10*3/uL (0.1-1.2); Monocytes Percent Auto 7.5 % (2-11); Neutrophils Absolute Auto 3.1 x10*3/uL (2.0-8.3); Neutrophils Percent Auto 60.5 % (45-73); Platelet Count 236 X10*3/uL (160-400); Red Blood Count 4.45 X10*6/uL (4.20-5.50); Red Cell Distribution Width 12.9 % (11.0-16.0); White Blood Count 5.1 X10*3/uL (4.8-10.8)
[2024-08-02 10:52] LABS: Estimated Average Glucose 108 mg/dL; Hemoglobin A1c % 5.4 % (<6.0)
[2024-08-02 10:59] LABS: Alanine Aminotransferase 17 U/L (0-31); Albumin Level 4.5 g/dL (3.5-5.0); Alkaline Phosphatase 63 U/L (39-117); Anion Gap 7 (12-20); Aspartate Amino Transferase 20 U/L (5-31); Bilirubin Total 0.5 mg/dL (0.0-1.0); Blood Urea Nitrogen 18 mg/dL (9-16); Calcium 9.5 mg/dL (8.4-10.2); Carbon Dioxide 28 mmol/L (22-29); Chloride 107 mmol/L (96-108); Cholesterol 231 mg/dL (<200); Estimated Glomerular Filt Rate > 60; Glucose Fasting 99 mg/dL (60-99); HDL Cholesterol 41 mg/dL (>40); LDL Cholesterol Calculated 122 mg/dL (<100); Potassium 4.2 mmol/L (3.3-5.1); Sodium 138 mmol/L (135-145); Total Protein 6.9 g/dL (6.5-8.0); Triglycerides 342 mg/dL (<150)
== END 2024-08-02 08:37 | disposition home or self-care (01) ==
LOC: HO.HMGCLDS 08:36
PROVIDERS: PCP Internal Medicine; Visit Provider Internal Medicine
DX: E11.9 Type 2 diabetes mellitus without complications (principal); E66.09 Other obesity due to excess calories; Z68.33 Body mass index [BMI] 33.0-33.9, adult; E78.2 Mixed hyperlipidemia
CPT/HCPCS: 36415; 80053; 80061; 83036; 85025

== ENCOUNTER 2024-08-11 09:29 | Outpatient (AMB) | payer OTHER, SELFPAY ==
[2024-08-11 09:31] VITALS: BP 140/82; PULSE 71; RESP 15; TEMP 36.8; O2SAT 98; BMI 29.8
--- NOTE | 2024-08-11 09:31 | MHC.PC.OV ---
Vital Signs 08/11/24 09:31 Height 5 ft 3 in Weight 168 lb BMI 29.8 BP 140/82 H Blood Pressure Location Rt brachial Position Sitting Respiration 15 Pulse 71 Pulse Source Pulse Oximeter Temp 98.3 F Temp Source Oral Pulse Oximetry (%) 98 Oxygen Delivery Method Room Air Intake Visit Reasons: 3m follow up Allergies No Known Allergies (No Known Allergies*) Allergy (Verified 08/11/24 09:31) Medication List - Last Reconciled 08/11/24 by Brandie Villalba MD atorvastatin 10 mg PO QAM Held on 10/05/23. Instructions: Doctor's Order blood sugar diagnostic (FreeStyle Lite Strips) Use to check blood sugar twice daily: fasting and random blood-glucose meter (FreeStyle Lite Meter kit) Use to check blood sugar twice daily: fasting and random ezetimibe (Zetia) 10 mg PO DAILY lancets (Accu-Chek Softclix Lancets) Use to check blood sugar twice daily: fasting and random metformin 500 mg PO DAILY omeprazole 20 mg PO QAM propranolol 20 mg PO QAM tirzepatide (weight loss) 15 mg (0.5 mL) subcut QWEEK Tobacco use date assessed: 08/11/24 Dental Screening Dental Screen Date: 08/11/24 Did you have a dental visit in the last 12 months?: Yes Did you have a dental problem in the last 6 months where you did not have access to dental care?: No Was dental information given to patient?: Patient has dentist HPI 3m follow up HPI Details Physical exam appointment - The patient is a 59-year-old female presenting for follow-up appointment Developed a toenail infection right side, she has been having that recurrently I have placed referral to Podiatry Meanwhile Augmentin prescription sent - diabetes is stable, hemoglobin A1c is well-controlled she is on metformin 500 mg daily, hemoglobin A1c is in 5 range patient was given option to stop metformin . - Hyperlipidemia is managed with atorvastatin, with LDL stable - GERD symptoms persist and are managed with omeprazole, with no recent exacerbations reported. - Migraines are managed with propranolol, and the condition remains under control. 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 - No service or occupational issues mentioned. Patient Instructions - Continue prescribed medications including atorvastatin and metformin. - Follow up with an angular developer. Take antibiotic sent for 2 nail infection - Continue weight management strategies, including trisipidide injections. - Recommended lifestyle modification to include increased exercise as weather improves. - follow-up 3 months Review of Systems - General: No fever no chills - Neurological: No headaches no dizziness - Ear nose throat: No sore throat no hearing difficulty no ear pain - Cardiovascular: No syncope, no chest pain, no palpitations - Gastrointestinal: No nausea vomiting or diarrhea - Endocrine: No polyuria polydipsia no heat intolerance - Genitourinary: No dysuria - Skin: No new complaints Physical Exam General: Cooperative, healthy appearing, comfortable, no acute distress Orientation: Patient oriented x3 HEENT: No new findings Eyes: Appearance normal, extraocular movement intact pupils reactive Neck: Normal visual inspection and supple Respiratory: Normal respiratory effort and able to speak in complete sentences. Clear to auscultation, no stridor Cardiovascular: S1 and S2 Skin: Turgor normal, no acute findings, no skin problems noted Neuro: Patient oriented x3, motor sensory intact, Extremities: Right toenail infected medially with slight amount of yellow discharge PFSH Medical History Vitamin D deficiency Polyp of colon Cough Edema Hyperglycemia Abnormal colonoscopy Annual physical exam Normal Pap smear Mammogram normal Hx of subarachnoid hemorrhage GERD (gastroesophageal reflux disease) Hyperlipidemia Hypertension Surgical History History of esophagogastroduodenoscopy (EGD) H/O colonoscopy History of section Hx of cholecystectomy Family History Father HTN (hypertension) CVD (cardiovascular disease) AAA (abdominal aortic aneurysm) Unknown family medical history Mother Unknown family medical history 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 Brother No problems noted. Sister No problems noted. Son No problems noted. Daughter No problems noted. 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 Housing: House Are you a primary home care attendant to a significant other at home: No Do you presently have visiting nurse or other home services: No Alcohol intake: never Patient Tobacco Use Status: Never used Tobacco e-Cigarette/Vaping Use: Never Used Second Hand Smoke Exposure: No service: No Current occupational status: employed Cognitive needs: No Hearing needs: No Vision needs: Yes Questionnaire Thrive Questionnaire Date Thrive assessed: 05/10/24 I am a: Patient What is your living situation today?: I have a steady place to live Within the past 12 months, did the food you bought not last and you didn't have the money to get more?: Never true Within the past 12 months, did you worry whether your food would run out before you got money to buy more?: Never true Do you have trouble paying for medicines?: No Do you have trouble getting transportation to medical appointments?: No Do you have trouble paying your heating and electricity bill?: No Do you have trouble taking care of your child, family member or friend?: No Do you have trouble with day-to-day activities such as bathing, preparing meals, shopping, managing finances, etc.?: No Are you currently unemployed and looking for a job?: No Are you interested in more education?: No Please select the resources that you would like help with: None Currently or been in a relationship where the following occur: No concerns reported THRIVE Score: 0 AUDIT C Alcohol Use Questionnaire (AUDIT-C) 3. How often do you have six or more drinks on one occasion?: Never Total Score: 0 TITI-7 AMB Questionnaire TITI-7 Date TITI - 7 assessed: 10/05/23 Source: Developed by Drs. Berto Acevedo, Maria Esther Li, Toni Degroot and colleagues, with an educational benigno from [employer]. Physical exam (Primary Care) Vital Signs: Last Vital Signs Temp 98.3 F 08/11/24 09:31 Pulse 71 08/11/24 09:31 Resp 15 08/11/24 09:31 BP 140/82 H 08/11/24 09:31 Pulse Ox 98 08/11/24 09:31 Oxygen Delivery Method Room Air 08/11/24 09:31 BMI result Body Mass Index 29.8 Tobacco/Smoking Status: Tobacco use Status Tobacco use date assessed 08/11/24 08/11/24 09:36 Patient Tobacco Use Status Never used Tobacco 08/11/24 09:36 e-Cigarette/Vaping Use Never Used 08/11/24 09:36 Thrive Assessment: Date of Thrive Assessment Date Thrive assessed 05/10/24 08/11/24 09:36 Currently or been in a relationship where the following occur: No concerns reported Coding Level of Care Code Est Pt Level 4 (48728) Diagnoses Controlled type 2 diabetes mellitus without complication, without long-term current use of insulin E11.9 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 ferry terminal supervisor insulin use: without ferry terminal supervisor use 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 complication status: without complication Toe infection L08.9 Ingrown nail of great toe L60.0 Recurrent headache R51.9 Mixed hyperlipidemia E78.2 Hyperlipidemia type: mixed hyperlipidemia Spondylosis of lumbar region without myelopathy or radiculopathy M47.816 Spinal osteoarthritis complication: without myelopathy or radiculopathy Class 1 obesity due to excess calories with serious comorbidity and body mass index (BMI) of 33.0 to 33.9 in adult E66.09; Z68.33 Obesity classification: adult class 1 (BMI 30 - 34.9) Serious obesity comorbidity presence: with serious comorbidity Body mass index: BMI 33.0-33.9 Chronic GERD K21.9 Vitamin D deficiency E55.9 Assessment & Plan Assessment & Plan (1) Diabetes type 2, controlled: Code(s): E11.9 - Type 2 diabetes mellitus without complications Category: Medical Qualifiers: 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 ferry terminal supervisor insulin use: without ferry terminal supervisor use 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 complication status: without complication Qualified Code(s): E11.9 - Type 2 diabetes mellitus without complications (2) Toe infection: Code(s): L08.9 - Local infection of the skin and subcutaneous tissue, unspecified Category: Medical (3) Ingrown nail of great toe: Code(s): L60.0 - Ingrowing nail Category: Medical (4) Recurrent headache: Code(s): R51.9 - Headache, unspecified Category: Medical (5) Hyperlipidemia: Code(s): E78.5 - Hyperlipidemia, unspecified Category: Medical Qualifiers: Hyperlipidemia type: mixed hyperlipidemia Qualified Code(s): E78.2 - Mixed hyperlipidemia (6) Osteoarthritis of lumbar spine: Code(s): M47.816 - Spondylosis without myelopathy or radiculopathy, lumbar region Category: Medical Qualifiers: Spinal osteoarthritis complication: without myelopathy or radiculopathy Qualified Code(s): M47.816 - Spondylosis without myelopathy or radiculopathy, lumbar region (7) Obesity due to excess calories: Code(s): E66.09 - Other obesity due to excess calories Category: Medical Qualifiers: Obesity classification: adult class 1 (BMI 30 - 34.9) Serious obesity comorbidity presence: with serious comorbidity Body mass index: BMI 33.0-33.9 Qualified Code(s): E66.09 - Other obesity due to excess calories; Z68.33 - Body mass index [BMI] 33.0-33.9, adult (8) Chronic GERD: Code(s): K21.9 - Gastro-esophageal reflux disease without esophagitis Category: Medical (9) Vitamin D deficiency: Code(s): E55.9 - Vitamin D deficiency, unspecified Category: Medical Plan Physical exam appointment - The patient is a 59-year-old female presenting for follow-up appointment Developed a toenail infection right side, she has been having that recurrently I have placed referral to Podiatry Meanwhile Augmentin prescription sent - diabetes is stable, hemoglobin A1c is well-controlled she is on metformin 500 mg daily, hemoglobin A1c is in 5 range patient was given option to stop metformin . - Hyperlipidemia is managed with atorvastatin, with LDL stable - GERD symptoms persist and are managed with omeprazole, with no recent exacerbations reported. - Migraines are managed with propranolol, and the condition remains under control. 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 - No service or occupational issues mentioned. Patient Instructions - Continue prescribed medications including atorvastatin and metformin. - Follow up with an angular developer. Take antibiotic sent for 2 nail infection - Continue weight management strategies, including trisipidide injections. - Recommended lifestyle modification to include increased exercise as weather improves. - follow-up 3 months Orders: Referrals Podiatry Referral L08.9 - Local infection of the skin and subcutaneous tissue, unspecified, L60.0 - Ingrowing nail Medications: New amoxicillin-pot clavulanate 875-125 mg 1 tab PO BID 20 tabs 0RF 10 days
--- OUTSIDE RECORDS SUMMARY | 2024-08-11 09:46 | XMS_ITS | Clinical Summary ---
Author Organization [address] Address [address] [place] [id number] Phone Care Team Providers Care Financial Project Manager Name Role Phone Brandie Villalba MD Primary Care Provider Social History Tobacco Use Types Packs/Day Years [...] AM EST No mammographic evidence of malignancy. No suspicious interval change. A negative mammogram in the presence of a clinically suspicious palpable abnormality does not preclude the possibility of malignancy or alter the indications for biopsy. ASSESSMENT: BI-RADS 1: NEGATIVE RECOMMENDATION(S): 1: Routine screening mammogram BILATERAL in 1 year. -------- FINAL REPORT -------- Dictated By: Landry Triana Dictated Date: 03/09/2024 09:16 ET Assigned Physician: Landry Triana Reviewed and Electronically Signed By: Landry Triana Signed Date: 03/09/2024 09:26 ET Workstation ID: [id number] Transcribed By: Self Edit Transcribed Date: 03/09/2024 09:19 ET Narrative 03/09/2024 9:26 AM EST EXAM: SCREENING MAMMOGRAPHY, BILATERAL HISTORY: SCREENING. Technologist indicates bruise left breast 12 o'clock position COMPARISON: 06/01/2022, 05/23/2021, 12/01/2019 TECHNIQUE: Synthesized CC and MLO projections of each breast. Tomosynthesis of each breast in the CC and MLO projections. ADDITIONAL IMAGING: None Computer-aided detection was employed with the [employer] AI 3-D. TISSUE DENSITY: There are scattered areas of fibroglandular density. (BI-RADS category B) FINDINGS: RIGHT BREAST: No suspicious mass. No suspicious calcification. No distortion. No additional suspicious right breast findings LEFT BREAST: No suspicious mass. No suspicious calcification. No distortion. No additional suspicious left breast findings Procedure Note Landry Triana MD - 03/09/2024 EXAM: SCREENING MAMMOGRAPHY, BILATERAL HISTORY: SCREENING. Technologist indicates bruise left breast 12 o'clockposition COMPARISON: 06/01/2022, 05/23/2021, 12/01/2019 TECHNIQUE: Synthesized CC and MLO projections of each breast.Tomosynthesis of each breast in the CC and MLO projections. ADDITIONAL IMAGING: None Computer-aided detection was employed with the Viade[employer] AI 3-D. TISSUE DENSITY: There are scattered [...] Signed Date: 03/09/2024 09:26 ET Workstation ID: [id number] Transcribed By: Self Edit Transcribed Date: 03/09/2024 09:19 ET us Jeannine Pitts MD IMG BI PROCEDURES Final Result * Pap smear (02/14/2024 12:00 AM EST) Interpretation Negative for intraepithelial lesion or malignancy 02/21/2024 8:31 AM [facility] General Categorization Negative 02/21/2024 8:31 AM [facility] Other Findings Atrophy 02/21/2024 8:31 AM [facility] Specimen Adequacy Satisfactory for evaluation 02/21/2024 8:31 AM [facility] Pap Methodology Liquid Based Pap Test 02/21/2024 8:31 AM [facility] Disclaimer The Pap test is a screening test which carries an inherent false negative rate. These test results should be correlated with the patient's clinical findings and history. This Pap test was processed using an automated screening system. Technical cytopathology services provided by [facility], at [address] [place] [address], [place] [address] (CLIA # [id number]/Leia Encinas MD, Print Machine Operator.) 02/21/2024 8:31 AM [facility] Console Pap Interpretation Reported 02/21/2024 8:31 AM [facility] Brushing/Spatula Cervix uteri structure / Unknown 02/14/2024 02/15/2024 8:16 AM EST us Jeannine Pitts MD LAB CYTOLOGY ORDERABLES Final Result [facility] [address] [place] [address], from Last 3 Months or Most Recently Relevant to Health Maintenance Insurance [facility] Care Teams Financial Project Manager Relationship Specialty Start Date End Date Brandie Villalba MD [address] [place] [address] PCP - General Internal Medicine 03/09/24
== END 2024-08-11 09:49 | disposition home or self-care (01) ==
LOC: HO.HMCC 09:30
PROVIDERS: PCP Internal Medicine; Visit Provider Internal Medicine
DX: E11.9 Type 2 diabetes mellitus without complications (principal); L08.9 Local infection of the skin and subcutaneous tissue, unspecified; L60.0 Ingrowing nail; R51.9 Headache, unspecified; E78.2 Mixed hyperlipidemia; M47.816 Spondylosis without myelopathy or radiculopathy, lumbar region; E66.09 Other obesity due to excess calories; Z68.33 Body mass index [BMI] 33.0-33.9, adult; K21.9 Gastro-esophageal reflux disease without esophagitis; E55.9 Vitamin D deficiency, unspecified

== ENCOUNTER → 2024-08-11 09:29 | Outpatient (BNVA) | payer OTHER, SELFPAY | PROVIDERS: PCP Internal Medicine; Visit Provider Internal Medicine | DX: Z13.89 Encounter for screening for other disorder (principal) ==

== ENCOUNTER 2024-09-06 09:16 | Outpatient (AMB) | payer OTHER, SELFPAY ==
--- NOTE | 2024-09-06 09:18 | MHC.OFFWIV ---
Intake Vital Signs 09/06/24 09:19 Height 5 ft 3 in Weight 168 lb BMI 29.8 BP 118/74 Blood Pressure Location Rt brachial Position Sitting Pulse 70 Pulse Source Pulse Oximeter Temp 97.9 F Temp Source Oral Pulse Oximetry (%) 97 Oxygen Delivery Method Room Air Intake Visit Reasons: EP-lt hand sore and swollen Intake Note: presents with left hand pain and swelling for a day, denies injury Patient Tobacco Use Status: Never used Tobacco Allergies No Known Allergies (No Known Allergies*) Allergy (Verified 09/06/24 09:24) Do you need a note to return to daycare/school/sports/work: No HPI HPI Comments History of Present Illness Details History - The patient is a 59-year-old female presenting with left hand pain and swelling x2 days - The pain began last night and was severe enough to prompt a visit to urgent care. - The patient reports no history of trauma, injury, or insect bites to the hand. - There is no known history of gout or arthritis, although the patient suspects a previous episode of gout. - The patient describes the pain as being localized to specific areas of the hand, with no associated numbness or tingling or weakness. - The patient has not attempted any interventions prior to the visit. Physical Exam General: Cooperative, healthy appearing, comfortable, no acute distress and well developed Orientation: Patient oriented x3 Limitations: No limitations Head: Normal to inspection Ears: Hearing grossly normal bilaterally Nose: Normal External nose present Face and sinus: Normal facial exam Mouth: normal, moist oral mucosa Eyes: Appearance normal, both eyes and all related structures Neck: Normal visual inspection and Yes full ROM Respiratory: Normal respiratory effort and able to speak in complete sentences. Skin: no rashes or lesions noted Neuro: Patient oriented x3 Extremities: Moving all extremities normally, but left hand with 1cm round soft area of edema at the base of the 4th digit. [facility] Medical History Vitamin D deficiency Polyp of colon Cough Edema Hyperglycemia Abnormal colonoscopy Annual physical exam Normal Pap smear Mammogram normal Hx of subarachnoid hemorrhage GERD (gastroesophageal reflux disease) Hyperlipidemia Hypertension Surgical History History of esophagogastroduodenoscopy (EGD) H/O colonoscopy History of section Hx of cholecystectomy Family History Father HTN (hypertension) CVD (cardiovascular disease) AAA (abdominal aortic aneurysm) Unknown family medical history Mother Unknown family medical history 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 Brother No problems noted. Sister No problems noted. Son No problems noted. Daughter No problems noted. 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 [employer] Housing: House Are you a primary care associate to a significant other at home: No Do you presently have visiting nurse or other home services: No Alcohol intake: never Patient Tobacco Use Status: Never used Tobacco e-Cigarette/Vaping Use: Never Used Second Hand Smoke Exposure: No service: No Current occupational status: employed Cognitive needs: No Hearing needs: No Vision needs: Yes Review of Systems Const All systems reviewed & are unremarkable except as noted in HPI and below Physical Exam Vital Signs: Last Vital Signs Temp 97.9 F 09/06/24 09:19 Pulse 70 09/06/24 09:19 BP 118/74 09/06/24 09:19 Pulse Ox 97 09/06/24 09:19 Oxygen Delivery Method Room Air 09/06/24 09:19 BMI result Body Mass Index 29.8 Assessment & Plan Assessment & Plan (1) Left hand pain: Code(s): M79.642 - Pain in left hand Plan: Plan Patient was informed and verbally consented to the use of an ambient scribe for clinic note documentation during this visit 1. Left Hand Pain - An x-ray of the left hand was ordered to evaluate for possible ganglion cyst or other abnormalities. - The patient was advised to take Aleve and apply ice to the affected area to manage pain and swelling. - Follow-up will be conducted based on x-ray results. Orders: Orders XR hand LT min 3V Today M79.642 - Pain in left hand Coding Level of Care Code Est Pt Level 4 (22172) Diagnoses Left hand pain M79.642
[2024-09-06 09:19] VITALS: BP 118/74; PULSE 70; TEMP 36.6; O2SAT 97; BMI 29.8
--- OUTSIDE RECORDS SUMMARY | 2024-09-06 09:34 | XMS_ITS | Patient Health Record ---
Author Organization [facility] Address [address] [place] [address] Care Team Providers Care Road Gang Supervisor Name Role Phone Ari Jones MD Primary Care Provider Sloan Ortiz Unavailable [phone] Reason For Referral No Information Medications Medication SIG (Take, Route, Frequency, Duration) Notes Start Date End Date Status Atorvastatin Calcium 10 MG Orally Active Omeprazole 20 MG Orally Once a day Active Furosemide 20 MG Orally Act syed Pneumatic Compression Boot 30mm Hg as directed over swollen feet and legs as directed; Duration: . Active Night Splint AFO - L1930 as directed Active Propranolol HCl 20 MG/5ML Orally Active Social History Tobacco Use: Social History Observation Description Date Details (start date - stop date) Never Smoker NA - NA Tobacco Use/Smoking Question Answer Notes Are you a: nonsmoker Additional Findings: Tobacco Non-User Current no n-smoker Alcohol Screen Question Answer Notes Did you have a drink containing alcohol in the p ast year? No Points 0 Interpretation Negative Tobacco use other than smoking: Question Answer Notes Are you an other tobacco user? No Plan Of Treatment Pending Test Test Name Order Date [id number] TENDON SHEATH/LIGAMENT 0 09/24/2017 Insurance Providers Payer Name Payer Address Payer Phone Subscriber Number Group Number Insured Name Patient Relationship to Insured Coverage Start Date Coverage End Date [facility] [address] [place] [address] [phone] [id number] Angel Amaya Spouse - patient is the spouse of the insured Medical (General) History Medical History History ICD Code Diverticulosis Gall bladder problems Headaches/Migraines Chicken pox Hypertension Surgical History Surgery Date(Month/Year) 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
--- OUTSIDE RECORDS SUMMARY | 2024-09-06 09:34 | XMS_ITS | Clinical Summary ---
Author Organization [address] Address [address] [place] [phone] Phone Care Team Providers Care Title Vehicle Service Attendant Name Role Phone Brandie Villalba MD Primary Care Provider [phone] Social History Tobacco Use Types Packs/Day Years [...] 2023 01/19/2023, 10/01/2021, 01/28/2021, Additional history exists Influenza Vaccine (#1) 2024 4, 01/19/2023, 01/21/2022, Additional history exists Breast Cancer Screening 03/09/2026 03/09/19 25, 06/04/2022, 05/23/2021, Additional history exists Cervical Cancer Screening: Pap Smear 02/13/2027 02/14/2024 HIB Vaccines Aged Out No longer eligi [...] 5 Years) and At-Risk Patients (6 to 49 Years) Aged Out No longer eligible based [...] Signed Date: 03/09/2024 09:26 ET Workstation ID: [id number] Transcribed By: Self Edit Transcribed Date: 03/09/2024 09:19 ET Narrative 03/09/2024 9:26 AM EST EXAM: SCREENING MAMMOGRAPHY, BILATERAL HISTORY: SCREENING. Technologist indicates bruise left breast 12 o'clock position COMPARISON: 06/01/2022, 05/23/2021, 12/01/2019 TECHNIQUE: Synthesized CC and MLO projections of each breast. Tomosynthesis of each breast in the CC and MLO projections. ADDITIONAL IMAGING: None Computer-aided detection was employed with the [employer] AI 3-D. TISSUE DENSITY: There are scattered [...] None Computer-aided detection was employed with the [employer] AI 3-D. TISSUE DENSITY: There are scattered [...] Signed Date: 03/09/2024 09:26 ET Workstation ID: [id number] Transcribed By: Self Edit Transcribed Date: 03/09/2024 09:19 ET us Jeannine Pitts MD IMG BI PROCEDURES Final Result * Pap smear (02/14/2024 12:00 AM EST) Interpretation Negative for intraepithelial lesion or malignancy 02/21/2024 8:31 AM [facility] General Categorization Negative 02/21/2024 8:31 AM [facility] Other Findings Atrophy 02/21/2024 8:31 AM [facility] Specimen Adequacy Satisfactory for evaluation 02/21/2024 8:31 AM [facility] Pap Methodology Liquid Based Pap Test 02/21/2024 8:31 AM [facility] Disclaimer The Pap test is a screening test which carries an inherent false negative rate. These test results should be correlated with the patient's clinical findings and history. This Pap test was processed using an automated screening system. Technical cytopathology services provided by [facility], at [address] [place] [address], [place] [address] (CLIA # [id number]/Leia Encinas MD, Junior Account Manager.) 02/21/2024 8:31 AM [facility] Console Pap Interpretation Reported 02/21/2024 8:31 AM [facility] Brushing/Spatula Cervix uteri structure / Unknown 02/14/2024 02/15/2024 8:16 AM EST us Jeannine Pitts MD LAB CYTOLOGY ORDERABLES Final Result [facility] ([facility]) [facility] [address] [place] [address], from Last 3 Months or Most Recently Relevant to Health Maintenance Insurance [facility] Care Teams Title Vehicle Service Attendant Relationship Specialty Start Date End Date Brandie Villalba MD [facility] [place] [phone] PCP - General Internal Medicine 03/09/24
== END 2024-09-06 10:05 | disposition home or self-care (01) ==
PROVIDERS: PCP Internal Medicine; Visit Provider Physician Assistant
DX: M79.642 Pain in left hand (principal)

== ENCOUNTER 2024-09-06 09:16 | Outpatient (REF) | payer OTHER, SELFPAY ==
--- NOTE | ~2024-09-06 | XR_ITS ---
EXAMINATION: XR HAND 3 OR MORE VIEWS LEFT HISTORY: M79.642 - Pain in left hand COMPARISON: There are no prior studies available for comparison. FINDINGS: Three views of the left hand are submitted. Osseous mineralization is normal. There is no fracture or dislocation. There is mild narrowing of the DIP and PIP joints. There is a soft tissue calcification between the 4th and 5th metacarpal heads. XR/XR hand LT min 3V IMPRESSION: Mild narrowing of the DIP and PIP joints. Electronically signed by: Berto Irwin MD 09/06/2024 09:57 AM EDT
== END 2024-09-06 09:17 | disposition home or self-care (01) ==
LOC: HO.HMGCX 09:16
PROVIDERS: PCP Internal Medicine; Visit Provider Physician Assistant
DX: M79.642 Pain in left hand (principal); M79.89 Other specified soft tissue disorders
CPT/HCPCS: 73130

== ENCOUNTER → 2024-09-06 09:38 | Outpatient (BNV) | payer OTHER, SELFPAY | PROVIDERS: PCP Internal Medicine; Visit Provider Radiology Diagnostic Radiology | DX: M79.642 Pain in left hand (principal) | CPT/HCPCS: 73130 ==

== ENCOUNTER 2024-11-14 09:10 | Outpatient (AMB) | payer OTHER, SELFPAY ==
[2024-11-14 09:13] VITALS: BP 150/80; PULSE 72; O2SAT 98; BMI 30.5
--- NOTE | 2024-11-14 09:13 | A.OFFPC_ITS ---
Vital Signs 11/14/24 09:13 Height 5 ft 3 in Weight 172 lb BMI 30.5 BP 150/80 H Blood Pressure Location Rt brachial Position Sitting Pulse 72 Pulse Source Pulse Oximeter Pulse Oximetry (%) 98 Oxygen Delivery Method Room Air Intake Visit Reasons: 3 months f/up City Engineer Required: No Accompanied by: Self / Same As Patient Allergies No Known Allergies (No Known Allergies*) Allergy (Verified 11/14/24 09:15) Medication List - Last Reconciled 11/14/24 by Brandei Villalba MD atorvastatin 10 mg PO QAM Held on 10/05/23. Instructions: Doctor's Order blood sugar diagnostic (FreeStyle Lite Strips) Use to check blood sugar twice daily: fasting and random blood-glucose meter (FreeStyle Lite Meter kit) Use to check blood sugar twice daily: fasting and random ezetimibe (Zetia) 10 mg PO DAILY lancets (Accu-Chek Softclix Lancets) Use to check blood sugar twice daily: fasting and random metformin 500 mg PO DAILY omeprazole 20 mg PO QAM propranolol 20 mg PO QAM tirzepatide (weight loss) 15 mg (0.5 mL) subcut QWEEK Tobacco use date assessed: 08/11/24 Dental Screening Dental Screen Date: 08/11/24 HPI 3 months f/up HPI Details History The patient is a 59-year-old female presenting with follow-up for blood pressure and medication management. Essential Hypertension: - Previously recorded blood pressure of 150 mmHg discussed. - Patient does not regularly monitor blo od pressure at home. - Recent increase in stress levels relat ed to job changes. - Previous medication propranolol 20 mg is noted for headache management. - Blood pressure fluctuations mentioned in context with stress. Weight Management Concerns: - Patient has concerns over recent weigh t changes and medication Zepbound. - Weight recorded as 168 pounds, with fl uctuations noted. - Issues with insurance coverage for laura ght management medication. Diabetes Mellitus Type 2: - Patient reports taking metformin 500 m g. - Recent A1c increased from 5.4 to 5.9. - Possible stress and dietary factors af fecting glucose levels discussed. Right Great Toe Ingrown Nail with Infection: - Patient describes chronic ingrown toen ail on right big toe. - Reports difficulty in healing, with re opening after wearing shoes. - Antibiotic medication suggested for in fection management. - has appointment with Podiatry coming u [place] in December Medical History: - Essential Hypertension - Diabetes Mellitus Type 2 - Hyperlipidemia - Obesity Medications: - Atorvastatin 10 mg for hyperlipidemia - Zetia (ezetimibe) for hyperlipidemia - Metformin 500 mg for diabetes - Omeprazole 20 mg for gastroesophageal reflux disease - Propranolol 20 mg for headache managem ent Problem List - Essential Hypertension - Diabetes Mellitus Type 2 - Hyperlipidemia - Obesity with BMI of 30.5 - Right Great Toe Ingrown Nail with Infe ction Diagnostic results - Labs: - Hemoglobin: Normal - White Blood Cell Count: Normal - Kidney Functions: Normal - Electrolytes: Normal - A1c: Increased from 5.4 to 5.9 - LDL: Stable at [address] of Care - Referral to obesity specialist discuss ed for additional support in weight management. - Communication planned with insurance r egarding coverage issues for Zepbound. Patient Instructions - Monitor your blood pressure at home re gularly and report if high. - Take medications as prescribed, includ ing any antibiotics for toe infection. - Follow up with obesity specialist as polly fair for weight management. - Manage stress: consider taking enjoyab le activities and rest when necessary. - Continue monitoring any symptoms relat ed to your toe and seek care if it worsens. - follow up with barrel ribs solderer in December Follow-up in 6 months Review of Systems General: No fever no chills neurological: No headaches no dizziness ear nose throat: No sore throat no hearing difficulty no ear pain cardiovascular: No syncope, no chest pain, no palpitations gastrointestinal: No nausea vomiting or diarrhea endocrine: No polyuria polydipsia no heat intolerance genitourinary: No dysuria skin: No new complaints Physical Exam general: No acute distress HEENT: No acute findings neck: Supple respiratory system: Able to talk in full sentences, no audible wheeze no stridor cardiovascular: S1-S2 RRR gastrointestinal: No pain extremities: Right big toe ingrown nail with infection SYSTEMS INTEGRATION ADVISOR: Alert awake oriented x3 motor sensory intact skin: Normal turgor Patient was informed and verbally consented to the use of an ambient scribe for clinic note documentation during this visit. [facility] Medical History Vitamin D deficiency Polyp of colon Cough Edema Hyperglycemia Abnormal colonoscopy Annual physical exam Normal Pap smear Mammogram normal Hx of subarachnoid hemorrhage GERD (gastroesophageal reflux disease) Hyperlipidemia Hypertension Surgical History History of esophagogastroduodenoscopy (EGD) H/O colonoscopy History of section Hx of cholecystectomy Family History Father HTN (hypertension) CVD (cardiovascular disease) AAA (abdominal aortic aneurysm) Unknown family medical history Mother Unknown family medical history 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 Brother No problems noted. Sister No problems noted. Son No problems noted. Daughter No problems noted. 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 1. Little interest or pleasure in doing things: not at all 2. Feeling down, depressed, or hopeless: not at all 3. Trouble falling or staying asleep, or sleeping too much: not at all 4. Feeling tired or having little energy: not at all 5. Poor appetite or overeating: not at all 6. Feeling bad about yourself - or that you are a failure or have let yourself or your family down: not at all 7. Trouble concentrating on things, such as reading the newspaper or watching television: not at all 8. Moving or speaking so slowly that other people could have noticed. Or the opposite - being so fidgety or restless that you have been moving around a lot more than usual: not at all 9. Thoughts that you would be better off or of hurting yourself in some way: not at all Total score: 0 Depression Screening Interpretation: Negative Depression Screening Done: Yes 25135 - PHQ-9 Billing: Yes Source: Developed by Drs. Berto Acevedo, Maria Esther Li, Toni Degroot and colleagues, with an educational benigno from [employer]. Thrive Questionnaire Date Thrive assessed: 05/10/24 I am a: Patient What is your living situation today?: I have a steady place to live Within the past 12 months, did the food you bought not last and you didn't have the money to get more?: Never true Within the past 12 months, did you worry whether your food would run out before you got money to buy more?: Never true Do you have trouble paying for medicines?: No Do you have trouble getting transportation to medical appointments?: No Do you have trouble paying your heating and electricity bill?: No Do you have trouble taking care of your child, family member or friend?: No Do you have trouble with day-to-day activities such as bathing, preparing meals, shopping, managing finances, etc.?: No Are you currently unemployed and looking for a job?: No Are you interested in more education?: No Please select the resources that you would like help with: None Currently or been in a relationship where the following occur: No concerns reported THRIVE Score: 0 AUDIT C Alcohol Use Questionnaire (AUDIT-C) 1. How often do you have a drink containing alcohol?: Never 3. How often do you have six or more drinks on one occasion?: Never Total Score: 0 Score Reviewed/Action Taken: Yes TITI-7 AMB Questionnaire TITI-7 Date TITI - 7 assessed: 11/14/24 Feeling nervous, anxious, or on edge: 0 = Not at all Not being able to stop or control worryin = Not at all Worrying too much about different things: 0 = Not at all Trouble relaxin = Not at all Being so restless that it is hard to sit still: 0 = Not at all Becoming easily annoyed or irritable: 0 = Not at all Feeling afraid as if something awful might happen: 0 = Not at all Total TITI-7 score (0-4 normal; 5-9 mild; 10-14 moderate; 15-21 severe): 0 Source: Developed by Drs. Berto Acevedo, Maria Esther Li, Toni Degroot and colleagues, with an educational benigno from [employer]. TITI-7 Assessment Billing TITI-7 Assessment Tool: TITI-7 Assessment 69776 Physical exam (Primary Care) Vital Signs: Last Vital Signs Pulse 72 11/14/24 09:13 BP 150/80 H 11/14/24 09:13 Pulse Ox 98 11/14/24 09:13 Oxygen Delivery Method Room Air 11/14/24 09:13 BMI result Body Mass Index 30.5 Tobacco/Smoking Status: Tobacco use Status Tobacco use date assessed 08/11/24 11/14/24 09:17 Patient Tobacco Use Status Never used Tobacco 11/14/24 09:17 e-Cigarette/Vaping Use Never Used 11/14/24 09:17 PHQ-9: PHQ-9 Score PHQ-9: Total score 0 11/14/24 09:33 Depression Screening Interpretation: Negative Thrive Assessment: Date of Thrive Assessment Date Thrive assessed 05/10/24 11/14/24 09:17 Currently or been in a relationship where the following occur: No concerns reported Results AMB Hemoglobin A1c AMB Hemoglobin A1c 5.9 % Last Edit by Ted Watson CMA on 11/14/24 09: 31 Results Reviewed Results Reviewed: Laboratory Last Values Hgb A1c (Clinic) 5.9 % (4.0-6.0) 11/14/24 09:26 Coding Level of Care Code Est Pt Level 4 (59771) Diagnoses Diabetes type 2, controlled E11.9 Class 1 obesity due to excess calories with serious comorbidity and body mass index (BMI) of 33.0 to 33.9 in adult E66.09; Z68.33 Body mass index: BMI 33.0-33.9 Obesity classification: adult class 1 (BMI 30 - 34.9) Serious obesity comorbidity presence: with serious comorbidity Toe infection L08.9 Ingrown nail of great toe L60.0 Recurrent headache R51.9 Mixed hyperlipidemia E78.2 Hyperlipidemia type: mixed hyperlipidemia Chronic GERD K21.9 Vitamin D deficiency E55.9 Additional Codes TITI-7 Assessment Billing - TITI-7 Assessment Tool: TITI-7 Assessment 67864 ([id number]) PHQ-9 - 99011 - PHQ-9 Billing: Yes ([id number]) Assessment & Plan Assessment & Plan (1) Diabetes type 2, controlled: Code(s): E11.9 - Type 2 diabetes mellitus without complications Category: Medical (2) Obesity due to excess calories: Code(s): E66.09 - Other obesity due to excess calories Category: Medical Qualifiers: Body mass index: BMI 33.0-33.9 Obesity classification: adult class 1 (BMI 30 - 34.9) Serious obesity comorbidity presence: with serious comorbidity Qualified Code(s): E66.09 - Other obesity due to excess calories; Z68.33 - Body mass index [BMI] 33.0-33.9, adult (3) Toe infection: Code(s): L08.9 - Local infection of the skin and subcutaneous tissue, unspecified Category: Medical (4) Ingrown nail of great toe: Code(s): L60.0 - Ingrowing nail Category: Medical (5) Recurrent headache: Code(s): R51.9 - Headache, unspecified Category: Medical (6) Hyperlipidemia: Code(s): E78.5 - Hyperlipidemia, unspecified Category: Medical Qualifiers: Hyperlipidemia type: mixed hyperlipidemia Qualified Code(s): E78.2 - Mixed hyperlipidemia (7) Chronic GERD: Code(s): K21.9 - Gastro-esophageal reflux disease without esophagitis Category: Medical (8) Vitamin D deficiency: Code(s): E55.9 - Vitamin D deficiency, unspecified Category: Medical Plan History The patient is a 59-year-old female presenting with follow-up for blood pressure and medication management. Essential Hypertension: - Previously recorded blood pressure of 150 mmHg discussed. - Patient does not regularly monitor blood pressure at home. - Recent increase in stress levels related to job changes. - Previous medication propranolol 20 mg is noted for headache management. - Blood pressure fluctuations mentioned in context with stress. Weight Management Concerns: - Patient has concerns over recent weight changes and medication Zepbound. - Weight recorded as 168 pounds, with fluctuations noted. - Issues with insurance coverage for weight management medication. Diabetes Mellitus Type 2: - Patient reports taking metformin 500 mg. - Recent A1c increased from 5.4 to 5.9. - Possible stress and dietary factors affecting glucose levels discussed. Right Great Toe Ingrown Nail with Infection: - Patient describes chronic ingrown toenail on right big toe. - Reports difficulty in healing, with reopening after wearing shoes. - Antibiotic medication suggested for infection management. - has appointment with Podiatry coming up in December Medical History: - Essential Hypertension - Diabetes Mellitus Type 2 - Hyperlipidemia - Obesity Medications: - Atorvastatin 10 mg for hyperlipidemia - Zetia (ezetimibe) for hyperlipidemia - Metformin 500 mg for diabetes - Omeprazole 20 mg for gastroesophageal reflux disease - Propranolol 20 mg for headache management Problem List - Essential Hypertension - Diabetes Mellitus Type 2 - Hyperlipidemia - Obesity with BMI of 30.5 - Right Great Toe Ingrown Nail with Infection Diagnostic results - Labs: - Hemoglobin: Normal - White Blood Cell Count: Normal - Kidney Functions: Normal - Electrolytes: Normal - A1c: Increased from 5.4 to 5.9 - LDL: Stable at [address] of Care - Referral to obesity specialist discussed for additional support in weight management. - Communication planned with insurance regarding coverage issues for Zepbound. Patient Instructions - Monitor your blood pressure at home regularly and report if high. - Take medications as prescribed, including any antibiotics for toe infection. - Follow up with obesity specialist as planned for weight management. - Manage stress: consider taking enjoyable activities and rest when necessary. - Continue monitoring any symptoms related to your toe and seek care if it worsens. - follow up with barrel ribs solderer in December Follow-up in 6 months Orders: Orders AMB Hemoglobin A1c Today Z13.9 - Encounter for screening, unspecified Referrals Bariatric Surgery Referral E66.09 - Other obesity due to excess calories, Z68.33 - Body mass index [BMI] 33.0-33.9, adult Medications: Refilled tirzepatide (weight loss) for 4 weeks 15 mg (0.5 mL) subcut QWEEK 2 mL 0RF E11.9 - Type 2 diabetes mellitus without complications, E66.09 - Other obesity due to excess calories, E78.2 - Mixed hyperlipidemia, M47.816 - Spondylosis without myelopathy or radiculopathy, lumbar region, Z68.33 - Body mass index [BMI] 33.0-33.9, adult amoxicillin-pot clavulanate 875-125 mg 1 tab PO BID 14 tabs 0RF 7 days
--- OUTSIDE RECORDS SUMMARY | 2024-11-14 10:41 | XMS_ITS | Clinical Summary ---
Author Organization [address] Address [address] [place] [phone] Phone Care Team Providers Care Quenching Machine Operator Name Role Phone Brandie Villalba MD Primary Care Provider [phone] Social History Tobacco Use Types Packs/Day Years [...] 2) 2016 Colorectal Cancer Screening: Colonoscopy 01/25/2022 HIV Screening 01/25/2022 Hepatitis C Screening 01/25/2022 Social Influencers of Health Screening 01/25/2022 Depression Screening 02/23/2024 COVID-19 Vaccine ( season) 2024 01/19/2023, 10/01/2021, 01/28/2021, Additional history exists Influenza [...] Signed Date: 03/09/2024 09:26 ET Workstation ID: [id number] Transcribed By: Self Edit Transcribed Date: 03/09/2024 09:19 ET Narrative 03/09/2024 9:26 AM EST EXAM: SCREENING MAMMOGRAPHY, BILATERAL HISTORY: SCREENING. Technologist indicates bruise left breast 12 o'clock position COMPARISON: 06/01/2022, 05/23/2021, 12/01/2019 TECHNIQUE: Synthesized CC and MLO projections of each breast. Tomosynthesis of each breast in the CC and MLO projections. ADDITIONAL IMAGING: None Computer-aided detection was employed with the [employer] AI 3-D. TISSUE DENSITY: There are scattered areas of fibroglandular density. (BI-RADS category B) FINDINGS: RIGHT BREAST: No suspicious mass. No suspicious calcification. No distortion. No additional suspicious right breast findings LEFT BREAST: No suspicious mass. No suspicious calcification. No distortion. No additional suspicious left breast findings Procedure Note Landry Triana, - 03/09/2024 EXAM: SCREENING MAMMOGRAPHY, BILATERAL HISTORY: SCREENING. Technologist indicates bruise left breast 12 o'clockposition COMPARISON: 06/01/2022, 05/23/2021, 12/01/2019 TECHNIQUE: Synthesized CC and MLO projections of each breast.Tomosynthesis of each breast in the CC and MLO projections. ADDITIONAL IMAGING: None Computer-aided detection was employed with the [employer] AI 3-D. TISSUE DENSITY: There are scattered [...] Signed Date: 03/09/2024 09:26 ET Workstation ID: [id number] Transcribed By: Self Edit Transcribed Date: 03/09/2024 09:19 ET us Jeannine Pitts MD IMG BI PROCEDURES Final Result * Pap smear (02/14/2024 12:00 AM EST) Interpretation Negative for intraepithelial lesion or malignancy 02/21/2024 8:31 AM [facility] General Categorization Negative 02/21/2024 8:31 AM [facility] Other Findings Atrophy 02/21/2024 8:31 AM [facility] Specimen Adequacy Satisfactory for evaluation 02/21/2024 8:31 AM [facility] Pap Methodology Liquid Based Pap Test 02/21/2024 8:31 AM [facility] Disclaimer The Pap test is a screening test which carries an inherent false negative rate. These test results should be correlated with the patient's clinical findings and history. This Pap test was processed using an automated screening system. Technical cytopathology services provided by [facility], at [address] [place] [address], [place] [address] (CLIA # [id number]/Leia Encinas MD, Superintendent Communications.) 02/21/2024 8:31 AM [facility] Console Pap Interpretation Reported 02/21/2024 8:31 AM [facility] Brushing/Spatula Cervix uteri structure / Unknown 02/14/2024 02/15/2024 8:16 AM EST us Jeannine Pitts MD LAB CYTOLOGY ORDERABLES Final Result [facility] ([facility]) [facility] [address] [place] [address], [place] [phone] from Last 3 Months or Most Recently Relevant to Health Maintenance Insurance [facility] [address] [place] [phone] Care Teams Quenching Machine Operator Relationship Specialty Start Date End Date Brandie Villalba MD [address] [facility] [place] [phone] PCP - General Internal Medicine 03/09/24
--- OUTSIDE RECORDS SUMMARY | 2024-11-14 10:41 | XMS_ITS | Encounter Summary ---
Author Organization [facility] Address [address] [place] [address] Care Team Providers Care Lepidopterist Name Role Phone Brandie Villalba MD Primary Care Provider [phone] Encounter Details Date Type Department Care Team (Latest Contact Info) Description 02/15/[address] [facility] [address] [place] [id number] Jeannine Pitts MD [address] [address] Encounter for gynecological examination (general) [...] lesion or malignancy 02/21/2024 8:31 AM EST [facility] General Categorization Negative 02/21/2024 8:31 AM EST [facility] Other Findings Atrophy 02/21/2024 8:31 AM [facility] Specimen Adequacy Satisfactory for evaluation 02/21/2024 8:31 AM [facility] Pap Methodology Liquid Based Pap Test 02/21/2024 8:31 AM [facility] Disclaimer The Pap test is a screening test which carries an inherent false negative rate. These test results should be correlated with the patient's clinical findings and history. This Pap test was processed using an automated screening system. Technical cytopathology services provided by [facility], at [address] [place] [address] (CLIA # [id number]/Leia Encinas MD, Siding Stapler.) 02/21/2024 8:31 AM [facility] Console Pap Interpretation Reported 02/21/2024 8:31 AM [facility] Brushing/Spatula Cervix uteri structure / Unknown 02/14/2024 02/15/2024 8:16 AM EST us Jeannine Pitts MD LAB CYTOLOGY ORDERABLES Final Result [facility] [address] [place] [address], documented in this encounter Visit Diagnoses Diagnosis Encounter for gynecological examination (general) (routine) without abnormal findings documented in this encounter Care Teams Lepidopterist Relationship Specialty Start Date End Date Bradnie Villalba MD [address] [facility] [place] [address] PCP - General Internal Medicine 03/09/24 documented as of this encounter
--- OUTSIDE RECORDS SUMMARY | 2024-11-14 10:41 | XMS_ITS | Patient Health Record ---
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 Evaporator Name Role Phone Ari Jones MD Primary Care Provider Sloan Ortiz Unavailable [phone] Reason For Referral No Information Medications Medication [...] Treatment Pending Test Test Name Order Date [id number] TENDON SHEATH/LIGAMENT 0 09/24/2017 Insurance Providers Payer Name Payer Address Payer Phone Subscriber Number Group Number Insured Name Patient Relationship to Insured Coverage Start Date Coverage End Date [facility] [address] [place] [address] [id number] Angel Amaya Spouse - patient is the spouse of the insured Medical (General) History Medical History History ICD Code Diverticulosis Gall bladder problems Headaches/Migraines Chicken pox Hypertension Surgical History Surgery Date(Month/Year) 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
== END 2024-11-14 09:41 | disposition home or self-care (01) ==
LOC: HO.HMCC 09:10
PROVIDERS: PCP Internal Medicine; Visit Provider Internal Medicine
DX: E11.9 Type 2 diabetes mellitus without complications (principal); E66.09 Other obesity due to excess calories; Z68.33 Body mass index [BMI] 33.0-33.9, adult; L08.9 Local infection of the skin and subcutaneous tissue, unspecified; L60.0 Ingrowing nail; R51.9 Headache, unspecified; E78.2 Mixed hyperlipidemia; K21.9 Gastro-esophageal reflux disease without esophagitis; E55.9 Vitamin D deficiency, unspecified; Z13.9 Encounter for screening, unspecified

== ENCOUNTER → 2024-11-14 09:10 | Outpatient (BNVA) | payer OTHER, SELFPAY | PROVIDERS: PCP Internal Medicine; Visit Provider Internal Medicine | DX: I10 Essential (primary) hypertension (principal); E11.9 Type 2 diabetes mellitus without complications; L60.0 Ingrowing nail; E66.09 Other obesity due to excess calories; L08.9 Local infection of the skin and subcutaneous tissue, unspecified; R51.9 Headache, unspecified; E78.2 Mixed hyperlipidemia; K21.9 Gastro-esophageal reflux disease without esophagitis; E55.9 Vitamin D deficiency, unspecified; Z68.33 Body mass index [BMI] 33.0-33.9, adult | CPT/HCPCS: 83036; 96127 ==